=== PATIENT | male | born 1945 | race Hispanic/Latino ===

== ENCOUNTER 2017-12-19 08:29 | Inpatient (IN) | payer MEDICARE, BC ==
[2017-12-19 08:39] VITALS: BMI 32.4
--- NOTE | 2017-12-19 08:57 | ED PDOC ---
Arrival/HPI - General Chief Complaint: Lower Extremity Problem/Injury Time Seen by Provider: 12/19/17 08:34 Historian: Patient - History of Present Illness Narrative History of Present Illness (Text): 12/19/17 08:55 72 year old male, whose PMH includes diabetes, who presents to the emergency department for bilateral leg swelling and erythma, h/o of chronic lymphedema x 30 yrs. ho of hep b and hcc. . Patient denies any chest pain, shortness of breath, fever, or other complaints. PMD: Dr. Yante Cedeno 12/19/17 15:13 Time/Duration: < week Symptom Onset: Gradual Symptom Course: Unchanged Context: Home Past Medical History - Provider Review Nursing Documentation Reviewed: Yes - Tetanus Immunization Tetanus Immunization: Unknown - Cardiac Hx Pacemaker: No - Pulmonary Hx Respiratory Disorders: No - Neurological Hx Paralysis: No - HEENT Hx HEENT Disorder: No - Renal Hx Renal Disorder: No - Endocrine/Metabolic Hx Diabetes Mellitus Type 2: Yes - Hematological/Oncological Hx Blood Transfusions: Yes Hx Blood Transfusion Reaction: No - Integumentary Hx Dermatological Disorder: No - Musculoskeletal/Rheumatological Hx Musculoskeletal Disorders: Yes - Gastrointestinal Hx Gastrointestinal Disorders: No - Genitourinary/Gynecological Hx Genitourinary Disorders: No - Psychiatric Hx Emotional Abuse: No Hx Physical Abuse: No Hx Substance Use: No - Surgical History Other/Comment: partial colectomy 2003 - Anesthesia Hx Anesthesia Reactions: No Hx Malignant Hyperthermia: No - Suicidal Assessment Feels Threatened In Home Enviroment: No Family/Social History - Physician Review Nursing Documentation Reviewed: Yes Family/Social History: Unknown Family HX Smoking Status: Never Smoked Hx Alcohol Use: No Hx Substance Use: No Hx Substance Use Treatment: No Allergies/Home Meds Allergies/Adverse Reactions: Allergies No Known Allergies Allergy (Verified 12/19/17 11:51) Home Medications: Home Meds Medication Instructions Recorded Confirmed Cholecalciferol [Vitamin D] 1,000 iu PO QAM 04/11/12 12/19/17 Multivitamin [Multi Vitamins] 1 tab PO QAM 04/11/12 12/19/17 Omeprazole [Prilosec] 20 mg PO QAM 04/11/12 12/19/17 Losartan [Cozaar] 100 mg PO DAILY 03/11/15 12/19/17 Allopurinol [Zyloprim] 300 mg PO QAM 06/14/16 12/19/17 Aspirin [Aspirin Chewable] 81 mg PO QAM 06/14/16 12/19/17 Furosemide [Lasix] 40 mg PO QOTHERDAY 06/14/16 12/19/17 Insulin Glargine, Recombina 38 unit SQ AMHS 06/14/16 12/19/17 [Lantus] Insulin Lispro [Humalog (Insulin 45 unit SQ AC 06/14/16 12/19/17 Lispro)] Metoprolol Tartrate [Lopressor] 100 mg PO AMHS 06/14/16 12/19/17 Pyridoxine [Vitamin B6] 100 mg PO DAILY 06/14/16 12/19/17 Simvastatin [Zocor] 40 mg PO DAILY 06/14/16 12/19/17 Ferrous Sulfate [Feosol] 84 mg PO DAILY 12/19/17 12/19/17 Review of Systems - Review of Systems Constitutional: absent: Fevers ENT: absent: Sore Throat Respiratory: absent: SOB Cardiovascular: absent: Chest Pain Gastrointestinal: absent: Abdominal Pain Genitourinary Male: absent: Dysuria Musculoskeletal: Other (bilateral leg edema). absent: Back Pain Neurological: absent: Headache Endocrine: absent: Diaphoresis Physical Exam Vital Signs Reviewed: Yes Vital Signs Temp Pulse Resp BP Pulse Ox 12/19/17 10:38 88 18 154/60 H 100 12/19/17 08:49 97.6 F 87 18 138/78 99 Temperature: Afebrile Blood Pressure: Normal Pulse: Regular Respiratory Rate: Normal Appearance: Positive for: Well-Appearing, Non-Toxic, Comfortable Pain Distress: None Mental Status: Positive for: Alert and Oriented X 3 - Systems Exam Head: Present: Atraumatic, Normocephalic Pupils: Present: PERRL Extroacular Muscles: Present: EOMI Conjunctiva: Present: Normal Mouth: Present: Moist Mucous Membranes Respiratory/Chest: Present: Clear to Auscultation, Good Air Exchange. No: Respiratory Distress, Accessory Muscle Use, Wheezes, Rales, Rhonchi Cardiovascular: Present: Regular Rate and Rhythm, Normal S1, S2. No: Murmurs Lower Extremity: Present: Edema, NORMAL PULSES, Normal ROM, Swelling, Erythema, Neurovascularly Intact, Capillary Refill < 2 s. No: Cyanosis, Deformity Neurological: Present: GCS=15, CN II-XII Intact, Speech Normal Skin: Present: Warm, Dry, Erythematous. No: Rashes Psychiatric: Present: Alert, Oriented x 3, Normal Insight, Normal Concentration Medical Decision Making ED Course and Treatment: 12/19/17 Impression: 72 year old male with bilateral leg lymphedema and eythema complaining of swelling on bilateral legs and came in as requested by PMD. Plan: -- Chest X-ray -- Labs -- Urinalysis -- Ultrasound lower extremity -- Reassess and disposition Progress Notes: 12/19/17 11:00 Chest X-ray: Creator : Aurelia Zamarripa MD FINDINGS: LUNGS: The lungs are hyperinflated and there is peribronchial thickening with chronic changes in both lungs. No focal consolidation. PLEURA: No significant pleural effusion identified, no pneumothorax apparent. CARDIOVASCULAR: Normal. OSSEOUS STRUCTURES: No significant abnormalities. VISUALIZED UPPER ABDOMEN: Normal. OTHER FINDINGS: None. IMPRESSION: No active pulmonary disease. 12/19/17 15:[address] luu ac cepts requests dr verma, dr salazar, holly consult. pt will need iv antibiotics with moderate cellulits - Lab Interpretations Lab Results: 12/19/17 09:30 12/19/17 09:30 Lab Results 12/19/17 10:07: Urine Color Yellow, Urine Appearance Clear, Urine pH 6.0, Ur Specific [place] 1.015, Urine Protein Negative, Urine Glucose (UA) Negative, Urine Ketones Negative, Urine Blood Negative, Urine Nitrate Negative, Urine Bilirubin Negative, Urine Urobilinogen 0.2, Ur Leukocyte Esterase Small H, Urine RBC 0 - 2, Urine WBC 5 - 10, Ur Epithelial Cells None, Urine Bacteria None 12/19/17 09:30: Sodium 138, Potassium 5.4 H, Chloride 105, Carbon Dioxide 21, Anion Gap 17, BUN 82 H, Creatinine 2.0 H, Est GFR ( Amer) 40, Est GFR ( Non-Af Amer) 33, Random Glucose 95, Calcium 10.4, Total Bilirubin 1.1, AST 67 H D, ALT 43, Alkaline Phosphatase 130 H D, Total Protein 8.0, Albumin 3.8, Globulin 4.2, Albumin/Globulin Ratio 0.9 L 12/19/17 09:30: PT 14.1 H, INR 1.22 H, APTT 28.5 04/16/18 09:30: WBC 6.6 D, RBC 3.30 L, Hgb 11.1 L, Hct 31.9 L, MCV 96.7, MCH 33.6, MCHC 34.8, RDW 14.5, Plt Count 121, MPV 10.8, Gran % 60.9, Lymph % (Auto) 22.9, [place] % (Auto) 8.7 H, Eos % (Auto) 6.1 H, Baso % (Auto) 1.4, Gran # 4.01, Lymph # (Auto) 1.5, [place] # (Auto) 0.6, Eos # (Auto) 0.4, Baso # (Auto) 0.09 I have reviewed the lab results: Yes - RAD Interpretation Radiology Orders: 12/19/17 08:54 CXR [CHEST PORTABLE] [RAD] Stat DUPLEX LOWER EXTRM VEIN BILAT [US] Stat Rn Unit Manager: Radiologist - Medication Orders Current Medication Orders: Allopurinol (Zyloprim) 300 mg PO QAM [facility] Aspirin (Aspirin Chewable) 81 mg PO QAM [facility] Atorvastatin Calcium (Lipitor) 20 mg PO DIN [facility] Insulin Detemir (Levemir) 19 unit SC AMHS [facility] Insulin Human Lispro (Humalog) 45 units SC AC [facility] Losartan Potassium (Cozaar) 100 mg PO DAILY [facility] Last Admin: 12/19/17 14:36 Dose: 100 mg Metoprolol Tartrate (Lopressor) 100 mg PO BRKDIN [facility] Non-Formulary Medication (Simvastatin [Zocor]) 40 mg PO DAILY [facility] Pyridoxine HCl (Vitamin B6 50 Mg Tab) 100 mg PO DAILY [facility] Silver Sulfadiazine (Silvadene 1% 25 Gm) 0 gm TP Q6 [facility] Discontinued Medications Vancomycin HCl (Vancomycin 1gm) 1 gm in 250 mls @ 167 mls/hr IVPB STAT STA PRN Reason: Protocol Stop: 12/19/17 10:59 Last Admin: 12/19/17 10:22 Dose: 167 mls/hr eMAR Start Stop Document 12/19/17 10:22 DARIN (Rec: 12/19/17 10:30 DARIN [id number]) Intravenous Solution Start Date 12/19/17 Start Time 10:30 End Date 12/19/17 End time 12:00 Total Infusion Time 90 Piperacillin Sod/Tazobactam Sod (Zosyn 3.375 In Ns 100ml) 100 mls @ 200 mls/hr IVPB STAT STA PRN Reason: Protocol Stop: 12/19/17 09:59 Last Admin: 12/19/17 09:54 Dose: 200 mls/hr eMAR Start Stop Document 12/19/17 09:54 KRISLisa (Rec: 12/19/17 09:54 SZLisa [id number]) Intravenous Solution Start Date 12/19/17 Start Time 09:54 End Date 12/19/17 End time 10:30 Total Infusion Time 36 Non-Formulary Medication (Insulin Glargine, Recombina [Lantus]) 38 unit SQ [facility] Non-Formulary Medication (Insulin Lispro [Humalog (Insulin Lispro)]) 45 unit SQ AC [facility] Non-Formulary Medication (Metoprolol Tartrate [Lopressor]) 100 mg PO AMHS [facility] Non-Formulary Medication (Pyridoxine [Vitamin B6]) 100 mg PO DAILY [facility] Pneumococcal Polyvalent Vaccine (Pneumovax 23 Vaccine) 0.5 ml IM .ONCE ONE Stop: 12/19/17 13:44 Last Admin: 12/19/17 14:35 Dose: Immunization Registry Document 12/19/17 14:35 SES (Rec: 12/19/17 14:35 [facility] [id number]) Immunization Registry Consent Date 12/12/17 Pyridoxine HCl (Vitamin B6 50 Mg Tab) 100 mg PO .EXTRA DOSE ONE Stop: 12/19/17 14:16 Sodium Polystyrene Sulfonate (Kayexalate Susp) 15 gm PO STAT STA Stop: 12/19/17 10:21 Last Admin: 12/19/17 11:05 Dose: 15 gm - Scribe Statement The provider has reviewed the documentation as recorded by the Meera Reina Provider Scribe Attestation: All medical record entries made by the Meera were at my direction and personally dictated by me. I have reviewed the chart and agree that the record accurately reflects my personal performance of the history, physical exam, medical decision making, and the department course for this patient. I have also personally directed, reviewed, and agree with the discharge instructions and disposition. Disposition/Present on Arrival - Present on Arrival Any Indicators Present on Arrival: No History of DVT/PE: No History of Uncontrolled Diabetes: No Urinary Catheter: No History of Decub. Ulcer: No (blisters on legs) History Surgical Site Infection Following: None - Disposition Have Diagnosis and Disposition been Completed?: Yes Diagnosis: Cellulitis, Lymphedema Disposition: HOSPITALIZED Disposition Time: 03:00 Patient Problems: Current Active Problems Problem Status Onset Cellulitis Acute Lymphedema Acute Condition: FAIR
--- NOTE | 2017-12-19 09:15 | RAD ---
HISTORY: admission COMPARISON: No prior. FINDINGS: LUNGS: The lungs are hyperinflated and there is peribronchial thickening with chronic changes in both lungs. No focal consolidation. PLEURA: No significant pleural effusion identified, no pneumothorax apparent. CARDIOVASCULAR: Normal. OSSEOUS STRUCTURES: No significant abnormalities. VISUALIZED UPPER ABDOMEN: Normal. OTHER FINDINGS: None. IMPRESSION: No active pulmonary disease.
[2017-12-19] MEDS ORDERED: Vancomycin 1gm in NS 250ml 1 GM/250 ML BAG IVPB STA (09:30)
[2017-12-19] MEDS ORDERED: Piperacillin/Tazobact 3.375 gm 100 ML IVPB STA (09:30)
[2017-12-19 09:46] LABS: BASO # 0.09 K/mm3 (0.0-2.0); BASO % 1.4 % (0.0-3.0); EOS # 0.4 (0.0-0.7); EOS % 6.1 % (1.5-5.0); GRAN # 4.01 (1.4-6.5); GRAN % 60.9 % (50.0-68.0); HEMOGLOBIN 11.1 g/dL (14.0-18.0); LYMPH # 1.5 (1.2-3.4); LYMPH % 22.9 % (22.0-35.0); MEAN CELL VOLUME 96.7 fl (80.0-105.0); MEAN CORPUSCULAR HEMOGLOBIN 33.6 pg (25.0-35.0); MEAN CORPUSCULAR HGB CONC 34.8 g/dl (31.0-37.0); MEAN PLATELET VOLUME 10.8 fl (7.0-11.0); MONO # 0.6 (0.1-0.6); MONO % 8.7 % (1.0-6.0); RBC 3.3 10^6/uL (3.5-6.1); RED CELL DISTRIBUTION WIDTH 14.5 % (11.5-14.5); WHITE BLOOD COUNT 6.6 10^3/ul (4.5-11.0)
[2017-12-19 09:51] LABS: INR 1.22 (0.93-1.08); PARTIAL THROMBOPLASTIN TIME 28.5 Seconds (25.1-36.5); PROTHROMBIN TIME 14.1 SECONDS (9.4-12.5)
[2017-12-19 10:05] LABS: ALB/GLOB RATIO 0.9 (1.1-1.8); ALBUMIN 3.8 g/dL (3.0-4.8); CALCIUM 10.4 mg/dL (8.4-10.5)
[2017-12-19 10:18] LABS: URINE BILIRUBIN NEGATIVE (NEGATIVE); URINE BLOOD NEGATIVE (NEGATIVE); URINE GLUCOSE (UA) NEGATIVE (NEGATIVE); URINE LEUKOCYTE ESTERASE SMALL Leu/uL (NEGATIVE); URINE PROTEIN NEGATIVE mg/dL (<30 mg/dL); URINE UROBILINOGEN 0.2 E.U./dL (<1 E.U./dL)
[2017-12-19 10:19] LABS: URINE APPEARANCE CLEAR (CLEAR); URINE COLOR YELLOW (YELLOW)
[2017-12-19] MEDS ORDERED: Sod Polystyrene Sulf 15 gm/60 ml Susp PO STA (10:20)
[2017-12-19 11:21] LABS: URINE RBC 0 - 2 /hpf (0-2)
[2017-12-19] MEDS ORDERED: Barium Sulfate Susp 2.1% w/v, 2.0% w/w 450 mL Bottle PO ONE (12:27)
--- NOTE | 2017-12-19 12:45 | CP.PCM.CON ---
<LeviJuancho - Last Filed: 12/19/17 12:28> History of Present Illness - History of Present Illness History of Present Illness: Pt. is a 72 y.o male with an extensive PMH including DM, HTN, CAD, Hep C, BPH, cirrhosis, liver CA, thrombocytopenia . Pt. presents with a complaint of bilateral lower extremity swelling of 6 weeks duration. Pt. states the swelling is painful and that he had blisters on both legs which "broke" over the last 6 weeks making the pain worse in his L.E's. Pt. currently rates the pain a 10/10 and states nothing in particular makes his pain better. Pt. states at onset of his symptoms he used Bacitracin, Neosporin, clotrimazole and betamethasone which all did not provide any significant relief. Pt. admits to chills, pain in his legs and numbness and tingling in both feet at onset of the symptoms but denies all other symptoms including fever, MEZA, CP, and SOB. PMH- Liver CA (2015), Hepatitis A, Hepatitis C, Kine[place] stones, Cirrhosis, Osteoarthritis, Cataracts, CAD, HTN, PVD, BPH, thrombocytopenia PSH- Colon surgery (2002) Hospitalization- Colon surgery recovery FH- Father- Pancreatic CA, Mother- Breast CA, Brother- Duodenal CA SH- Pt. denies use of tobacco, illicit drugs and alcohol. Pt. lives alone and is able to perform his IADLs on his own. Allergies- NKA Past Patient History - Tetanus Immunizations Tetanus Immunization: Unknown - Past Social History Smoking Status: Never Smoked - CARDIAC Hx Pacemaker: No - PULMONARY Hx Respiratory Disorders: No - NEUROLOGICAL Hx Paralysis: No - HEENT Hx HEENT Problems: No - RENAL Hx Chronic Kidney Disease: No - ENDOCRINE/METABOLIC Hx Diabetes Mellitus Type 2: Yes - HEMATOLOGICAL/ONCOLOGICAL Hx Blood Transfusions: Yes Hx Blood Transfusion Reaction: No - INTEGUMENTARY Hx Dermatological Problems: No - MUSCULOSKELETAL/RHEUMATOLOGICAL Hx Musculoskeletal Disorders: Yes - GASTROINTESTINAL Hx Gastrointestinal Disorders: No - GENITOURINARY/GYNECOLOGICAL Hx Genitourinary Disorders: No - PSYCHIATRIC Hx Emotional Abuse: No Hx Physical Abuse: No Hx Substance Use: No - SURGICAL HISTORY Other/Comment: partial colectomy 2002 - ANESTHESIA Hx Anesthesia Reactions: No Hx Malignant Hyperthermia: No Meds Allergies/Adverse Reactions: Allergies Allergy/AdvReac Type Severity Reaction Status Date / Time No Known Allergies Allergy Verified 12/19/17 11:51 Physical Exam - Constitutional Appears: Non-toxic, No Acute Distress - Head Exam Head Exam: NORMOCEPHALIC - Respiratory Exam Respiratory Exam: Clear to Auscultation Bilateral - Cardiovascular Exam Cardiovascular Exam: REGULAR RHYTHM, +S1, +S2 - GI/Abdominal Exam GI & Abdominal Exam: Soft Results - Vital Signs Recent Vital Signs: Last Vital Signs Temp 97.6 F 12/19/17 08:49 Pulse 88 12/19/17 10:38 Resp 18 12/19/17 10:38 BP 154/60 H 12/19/17 10:38 Pulse Ox 100 12/19/17 10:38 - Labs Result Diagrams: 12/19/17 09:30 12/19/17 09:30 Labs: Laboratory Results - last 24 hr 12/19/17 10:55 ESR 90 H Assessment & Plan - Assessment and Plan (Free Text) Assessment: Pt. is a 72 y.o male admitted for bilateral lower extremity swelling. Plan: -Wound care consult - Continue IV antibiotics -Daily wound dressing -Pain management per medical team Will discuss with Dr. Damico <Ivette Torres - Last Filed: 12/19/17 14:48> Meds - Medications Medications: Current Medications Allopurinol (Zyloprim) 300 mg PO QAM [facility] Aspirin (Aspirin Chewable) 81 mg PO QAM [facility] Atorvastatin Calcium (Lipitor) 20 mg PO DIN [facility] Insulin Detemir (Levemir) 19 unit SC AMHS [facility] Insulin Human Lispro (Humalog) 45 units SC AC [facility] Losartan Potassium (Cozaar) 100 mg PO DAILY [facility] Last Admin: 12/19/17 14:36 Dose: 100 mg Metoprolol Tartrate (Lopressor) 100 mg PO BRKDIN [facility] Non-Formulary Medication (Simvastatin [Zocor]) 40 mg PO DAILY [facility] Pyridoxine HCl (Vitamin B6 50 Mg Tab) 100 mg PO DAILY [facility] Silver Sulfadiazine (Silvadene 1% 25 Gm) 0 gm TP Q6 [facility] Results - Vital Signs Recent Vital Signs: Last Vital Signs Temp 97.6 F 12/19/17 12:52 Pulse 88 12/19/17 12:52 Resp 18 12/19/17 12:52 BP 154/60 H 12/19/17 12:52 Pulse Ox 100 12/19/17 10:38 - Labs Result Diagrams: 12/19/17 09:30 12/19/17 09:30 Labs: Laboratory Results - last 24 hr 12/19/17 12/19/17 10:55 12:55 ESR 90 H Lipase 351 H Assessment & Plan - Assessment and Plan (Free Text) Plan: Venous stasis with cellulitis Wound care : Silvadene, 4x4, Kerlilx, then Chase wrape around foot and legs b/l. Keep legs elevated. Compression <Hal Damico - Last Filed: 12/19/17 17:33> Meds - Medications Medications: Current Medications Allopurinol (Zyloprim) 300 mg PO QAM [facility] Aspirin (Aspirin Chewable) 81 mg PO QAM [facility] Atorvastatin Calcium (Lipitor) 20 mg PO DIN [facility] Vancomycin HCl (Vancomycin 500mg In Ns) 500 mg in 100 mls @ 200 mls/hr IVPB Q12 [facility] PRN Reason: Protocol Piperacillin Sod/Tazobactam Sod (Zosyn 2.25 Gm In 0.9% 100 Ml) 2.25 gm in 100 mls @ 100 mls/hr IVPB Q6 [facility] PRN Reason: Protocol Stop: 12/20/17 00:59 Insulin Detemir (Levemir) 19 unit SC AMHS [facility] Insulin Human Lispro (Humalog) 45 units SC AC [facility] Losartan Potassium (Cozaar) 100 mg PO DAILY [facility] Last Admin: 12/19/17 14:36 Dose: 100 mg Metoprolol Tartrate (Lopressor) 100 mg PO BRKDIN [facility] Non-Formulary Medication (Simvastatin [Zocor]) 40 mg PO DAILY [facility] Pyridoxine HCl (Vitamin B6 50 Mg Tab) 100 mg PO DAILY [facility] Silver Sulfadiazine (Silvadene 1% 25 Gm) 0 gm TP Q6 [facility] Results - Vital Signs Recent Vital Signs: Last Vital Signs Temp 97.8 F 12/19/17 14:00 Pulse 94 H 12/19/17 14:00 Resp 20 12/19/17 14:00 BP 106/64 12/19/17 14:00 Pulse Ox 100 12/19/17 14:00 - Labs Result Diagrams: 12/19/17 09:30 12/19/17 09:30 Labs: Laboratory Results - last 24 hr 12/19/17 12/19/17 12/19/17 10:55 10:55 12:55 ESR 90 H POC Glucose (mg/dL) C-Reactive Protein 10.40 H Lipase 351 H 12/19/17 16:26 ESR POC Glucose (mg/dL) 153 H C-Reactive Protein Lipase Assessment & Plan - Assessment and Plan (Free Text) Assessment: Dx Cellulitis-Lymphedema [place] lower extremities Portal Hypertension(cirrhossis) w Hypersplenism(thrombocytopenia) Hepatitis B(?C) Colon CA-Polyps Severe 40+ # weight loss over 3-4 months(GERD) Will need work up but cellulitis Rx to include Silvadene/Systemic Ab/Leg Elevation GI and Hem-Onc called This consult done under my direct supervision Ally Damico MD FACS
[2017-12-19] MEDS ORDERED: Pneumococcal 23-Valent Vaccine IM ONE (13:43)
[2017-12-19] MEDS ORDERED: Non Formulary Medication (Pyridoxine [Vitamin B6] 100 MG) PO SCH (14:00)
[2017-12-19] MEDS ORDERED: Non Formulary Medication (Simvastatin [Zocor] 40 MG) PO SCH (14:00)
--- NOTE | 2017-12-19 15:01 | CP.PCM.CON ---
History of Present Illness - History of Present Illness History of Present Illness: GI Consult note. Dr. Monsalve 72yo M with PMHx of DM, Hepatoma, MARTE cirrhosis, OA, Cataracts, CAD, HTN, PVD, BPH here for evaluaiton of bilateral lower extremity swelling. States that symptoms started about 6 weeks ago and gradually became worse, with worsening redness as well. Denies any trauma. Also reports a 40 pound weight loss over the past 2 months. Does state that he has decreased appetite over the same time period. States that he had Chemo embolization last in August 2016 and then ablation in Apr 2017. No recent chemo. No F/C. no CP/SOB. No N/V/D. No Abd pain. no urinary complaints. PMHx: DM, Hepatoma, MARTE cirrhosis, OA, Cataracts, CAD, HTN, PVD, BPH PSHx: "Colon surgery in 2002" Social Hx: Denies Tob, denies ETOH. Lives at home, alone NKDA Review of Systems - Review of Systems All systems: reviewed and no additional remarkable complaints except - Constitutional Constitutional: Anorexia, Malaise, Weight Loss. absent: Chills, Fever - Cardiovascular Cardiovascular: absent: Chest Pain, Dyspnea - Respiratory Respiratory: absent: Dyspnea - Gastrointestinal Gastrointestinal: absent: Abdominal Pain, Dysphagia, Nausea, Vomiting - Genitourinary Genitourinary: absent: Dysuria - Musculoskeletal Additional comments: lower extremity redness and swelling Past Patient History - Tetanus Immunizations Tetanus Immunization: Unknown - Past Social History Smoking Status: Never Smoked - CARDIAC Hx Cardiac Disorders: Yes (CAD) Hx Circulatory Problems: Yes Hx Hypercholesterolemia: Yes Hx Hypertension: Yes Hx Pacemaker: No - PULMONARY Hx Respiratory Disorders: No - NEUROLOGICAL Hx Neurological Disorder: Yes - HEENT Hx HEENT Problems: Yes Hx Deafness: Yes ([place]) - RENAL Hx Chronic Kidney Disease: Yes Hx Kidney Stones: Yes - ENDOCRINE/METABOLIC Hx Endocrine Disorders: Yes Hx Diabetes Mellitus Type 2: Yes - HEMATOLOGICAL/ONCOLOGICAL Hx Blood Disorders: Yes Hx Anemia: Yes (H/O BLOOD TRANSFUSION,PLATELET PROBEMS,SEES DR. MELENDEZ.) - INTEGUMENTARY Hx Dermatological Problems: Yes (CHARCOT FOOT R) Other/Comment: 12-19-17 BILATERAL LEG CELLULITIS-PITTING EDEMA +2,SKIN IS TIGHT, SHINY,+ERYTHEMA,BLISTER FORMATION WITH OPEN SKIN TO R BACK OF LEG. LEFT LEG WITH +ERYTHEMA,TIARA COLORED SKIN.+ CELLULITIS.NO OPEN WOUND. - MUSCULOSKELETAL/RHEUMATOLOGICAL Hx Musculoskeletal Disorders: Yes Hx Falls: No Hx Unsteady Gait: Yes (CANE) - GASTROINTESTINAL Hx Gastrointestinal Disorders: Yes (NAUSEA) Hx Liver Failure: Yes (LIVER CIRRHOSIS) - GENITOURINARY/GYNECOLOGICAL Hx Genitourinary Disorders: Yes Hx Prostate Problems: Yes (ENLARGED,HYDROCOELE) - PSYCHIATRIC Hx Emotional Abuse: No Hx Physical Abuse: No Hx Substance Use: No - SURGICAL HISTORY Hx Surgeries: Yes (MULTIPLE COLON SX,ABDOMINAL SX,COLOSTOMY REVERSAL,BILATERAL CATARACT SX.) Other/Comment: partial colectomy 2002 - ANESTHESIA Hx Anesthesia Reactions: No Hx Malignant Hyperthermia: No Meds Allergies/Adverse Reactions: Allergies Allergy/AdvReac Type Severity Reaction Status Date / Time No Known Allergies Allergy Verified 12/19/17 11:51 - Medications Medications: Current Medications Allopurinol (Zyloprim) 300 mg PO QAM [facility] Aspirin (Aspirin Chewable) 81 mg PO QAM [facility] Atorvastatin Calcium (Lipitor) 20 mg PO DIN [facility] Insulin Detemir (Levemir) 19 unit SC AMHS [facility] Insulin Human Lispro (Humalog) 45 units SC AC [facility] Losartan Potassium (Cozaar) 100 mg PO DAILY [facility] Last Admin: 12/19/17 14:36 Dose: 100 mg Metoprolol Tartrate (Lopressor) 100 mg PO BRKDIN [facility] Non-Formulary Medication (Simvastatin [Zocor]) 40 mg PO DAILY [facility] Pyridoxine HCl (Vitamin B6 50 Mg Tab) 100 mg PO DAILY [facility] Silver Sulfadiazine (Silvadene 1% 25 Gm) 0 gm TP Q6 [facility] Physical Exam - Constitutional Appears: Non-toxic, No Acute Distress, Chronically Ill - Eye Exam Eye Exam: EOMI, Normal appearance - ENT Exam ENT Exam: Mucous Membranes Moist - Cardiovascular Exam Cardiovascular Exam: absent: JVD - GI/Abdominal Exam GI & Abdominal Exam: Soft. absent: Distended, Firm, Guarding, Rebound, Rigid, Tenderness - Extremities Exam Additional comments: Bilateral lower extremity edema and erythema located at the pretibial area to the foot. Mild tenderness to palpation. - Neurological Exam Neurological exam: Alert, Oriented x3 Results - Vital Signs Recent Vital Signs: Last Vital Signs Temp 97.6 F 12/19/17 12:52 Pulse 88 12/19/17 12:52 Resp 18 12/19/17 12:52 BP 154/60 H 12/19/17 12:52 Pulse Ox 100 12/19/17 10:38 - Labs Result Diagrams: 12/19/17 09:30 12/19/17 09:30 Labs: Laboratory Results - last 24 hr 12/19/17 12/19/17 10:55 12:55 ESR 90 H Lipase 351 H Assessment & Plan - Assessment and Plan (Free Text) Assessment: 72yo M with bilateral lower extremity swelling and erythema. GI consulted for unexplained weight loss. Plan: - f/u CT Chest/Abd/Pelvis with PO contrast. No IV contrast due renal insufficiency - Continue diet as tolerated Further recs as per Dr. Gricel Miller PGY1
[2017-12-19] MEDS ORDERED: INSULIN LISPRO 45 UNIT SQ SCH (16:30)
--- NOTE | 2017-12-19 17:41 | CP.PCM.PCO ---
Physician Communication Note - Physician Communication Note Physician Communication Note: 40# wgt loss--Work up/Rx Cellulitis legs/Hepatic- Colon CA
[2017-12-19] MEDS ORDERED: Piperacillin/Tazobact 2.25gm 2.25 GM/100 ML BAG IVPB SCH (18:00)
--- NOTE | 2017-12-19 18:21 | CT ---
PROCEDURE: CT Chest, Abdomen and Pelvis without intravenous contrast HISTORY: weight loss COMPARISON: 10/22/2012 CT abdomen and pelvis. 11/18/2015 abdominal ultrasound MRI abdomen 05/15/2016. TECHNIQUE: Oral contrast administered. Radiation dose: Total exam DLP = 1440.50 mGy-cm. This CT exam was performed using one or more of the following dose reduction techniques: Automated exposure control, adjustment of the mA and/or kV according to patient size, and/or use of iterative reconstruction technique. FINDINGS: CT CHEST WITHOUT CONTRAST: LUNGS: Clear. No nodule, mass or consolidation. MEDIASTINUM: Unremarkable. Normal caliber aorta and pulmonary arterial trunk. Normal size heart. LYMPH NODES: Unremarkable. PLEURA: Unremarkable. No pneumothorax. No pleural fluid. BONES: Unremarkable. OTHER FINDINGS: None. CT ABDOMEN AND PELVIS: LIVER: Cirrhotic appearing liver. Dystrophic calcifications at the site of the previously identified mass in the left hepatic lobe. No additional masses are identified. GALLBLADDER AND BILE DUCTS: Unremarkable. PANCREAS: Unremarkable. No gross lesion or ductal dilatation. SPLEEN: Splenomegaly. Orthogonal measurements 11.7 x 6.5 x 14.7 cm. ADRENALS: Unremarkable. No mass. KIDNEYS AND URETERS: Unremarkable. No hydronephrosis. No solid mass. Incidental finding(s): Simple cyst midpole left kidney 3.2 cm. VASCULATURE: Unremarkable. No aortic aneurysm. BOWEL: Unremarkable. No obstruction. No gross mural thickening. Midline umbilical hernia containing nondilated loops of small bowel without evidence of incarceration or obstruction. APPENDIX: No abnormalities to suggest acute appendicitis. No right lower quadrant inflammatory processes identified. PERITONEUM: Unremarkable. No free fluid. No free air. LYMPH NODES: Unremarkable. No enlarged lymph nodes. BLADDER: Unremarkable. REPRODUCTIVE: Unremarkable prostate and seminal vesicles as visualized. BONES: No acute fracture. Multilevel degenerative changes thoracolumbar spine. OTHER FINDINGS: None. IMPRESSION: Cirrhotic liver, splenomegaly. No suspicious hepatic masses although there are dystrophic calcifications in the region of the previously identified hepatic mass distal to this is isolated dilated bile ducts confined to the left lobe. Limitations of the current study with regards to the liver is the absence of intravenous contrast. No active pulmonary disease or suspicious findings in the thorax. Additional benign and/or incidental findings described above.
[2017-12-19] MEDS: Insulin Lispro 1 UNITS/0.01 ML SC SCH (18:37)
[2017-12-19] MEDS: Silver Sulfadiazine 1% Cream (25 gm) TP SCH (18:39)
--- NOTE | 2017-12-19 19:37 | US ---
HISTORY: Leg pain and swelling. Evaluate for DVT PHYSICIAN(S): Mo Martino MD. TECHNIQUE: Duplex sonography and color-flow Doppler with graded compression were used to evaluate the deep venous systems of both lower extremities. FINDINGS: The visualized deep venous systems of both lower extremities are sonographically normal and compressible. Normal wave forms and augmentation are seen. There is no sonographic evidence for deep venous thrombosis in the visualized segments of both lower extremities. IMPRESSION: No sonographic evidence for deep venous thrombosis in the visualized segments of both lower extremities.
--- NOTE | 2017-12-19 19:49 | CP.PCM.CON ---
History of Present Illness - History of Present Illness History of Present Illness: 72 year old male with PMH of DM, obesity with BMI 32, S/P partial colectomy, [place] [facility] [place] of worsening bilateral lower extremity edema. He has been having chronic swelling of the legs and was seeing Dr. Pruitt previously. He also occasionally develops blisters and this time he developed on both feet, with weeping and pain. He denies soaking his feet in water, no animal contacts, no walking barefoot. He denies fever or chills, no nausea or vomiting, no chest pain, no SOB, no headache or dizziness, no abdominal pain, no cough or colds, no diarrhea, no dysuria. Infectious Diseases consult is requested to further evaluate and manage. Review of Systems - Review of Systems All systems: reviewed and no additional remarkable complaints except (as per HPI ) Past Patient History - Tetanus Immunizations Tetanus Immunization: Unknown - Past Social History Smoking Status: Never Smoked - CARDIAC Hx Cardiac Disorders: Yes Hx Hypertension: Yes Hx Pacemaker: No - PULMONARY Hx Respiratory Disorders: No - NEUROLOGICAL Hx Paralysis: No - HEENT Hx HEENT Problems: No - RENAL Hx Chronic Kidney Disease: No - ENDOCRINE/METABOLIC Hx Diabetes Mellitus Type 2: Yes - HEMATOLOGICAL/ONCOLOGICAL Hx Blood Transfusions: Yes Hx Blood Transfusion Reaction: No - INTEGUMENTARY Hx Dermatological Problems: No - MUSCULOSKELETAL/RHEUMATOLOGICAL Hx Musculoskeletal Disorders: Yes - GASTROINTESTINAL Hx Gastrointestinal Disorders: No - GENITOURINARY/GYNECOLOGICAL Hx Genitourinary Disorders: No - PSYCHIATRIC Hx Emotional Abuse: No Hx Physical Abuse: No Hx Substance Use: No - SURGICAL HISTORY Other/Comment: partial colectomy 2002 - ANESTHESIA Hx Anesthesia: Yes Hx Anesthesia Reactions: No Hx Malignant Hyperthermia: No Meds Allergies/Adverse Reactions: Allergies Allergy/AdvReac Type Severity Reaction Status Date / Time No Known Allergies Allergy Verified 12/19/17 11:51 - Medications Medications: Current Medications Vancomycin HCl (Vancomycin 1gm) 1 gm in 250 mls @ 167 mls/hr IVPB STAT [facility] PRN Reason: Protocol Stop: 12/19/17 10:59 Last Admin: 12/19/17 10:22 Dose: 167 mls/hr Physical Exam - Constitutional Appears: Chronically Ill - Head Exam Head Exam: NORMAL INSPECTION - Neck Exam Neck exam: Negative for: Meningismus - Respiratory Exam Respiratory Exam: Decreased Breath Sounds - Cardiovascular Exam Cardiovascular Exam: +S1, +S2 - GI/Abdominal Exam GI & Abdominal Exam: Soft. absent: Tenderness - Extremities Exam Additional comments: both legs with swelling, chronic skin changes, erythema, with blisters with weeping serous fluid, with some fungal infection noted in between toes Results - Vital Signs Recent Vital Signs: Last Vital Signs Temp 97.6 F 12/19/17 08:49 Pulse 88 12/19/17 10:38 Resp 18 12/19/17 10:38 BP 154/60 H 12/19/17 10:38 Pulse Ox 100 12/19/17 10:38 - Labs Result Diagrams: 12/19/17 09:30 12/19/17 09:30 Assessment & Plan - Assessment and Plan (Free Text) Plan: Assessment Bilateral lower extremity skin and skin structure infection with blisters associated with lymphedema, with fungal infection in between toes DM obesity with BMI 32 S/P partial colectomy Plan Started Teflaro pending blood and wound cx; ESR is elevated also started Clotrimazole for the toes will monitor clinically patient is also here because of 40 pound weight loss and malignancy work up is in progress
[2017-12-19] MEDS ORDERED: Non Formulary Medication (Metoprolol Tartrate [Lopressor] 100 MG) PO SCH (22:00)
[2017-12-19] MEDS ORDERED: Vancomycin 500mg in NS 500 MG/100 ML BAG IVPB SCH (22:00)
[2017-12-19] MEDS ORDERED: INSULIN GLARGINE RECOMBINA SQ SCH (22:00)
[2017-12-19] MEDS: Clotrimazole 1% Top Soln(10 ml) TOP SCH (22:05)
[2017-12-19] MEDS: Insulin Detemir 100 units/ml Vial (Levemir) SC SCH (22:05)
--- NOTE | 2017-12-20 02:53 | HP ---
HISTORY OF PRESENT ILLNESS: Patient is a 72-year-old, known to me from office practice, was seen in the office last week with increasing leg swelling, redness and watery discharge from both legs. I recommended him to go to emergency room for wound care and IV antibiotic, but he did not want to go to [facility]. He was seen by Dr. Swenson last Tuesday, who a kind of convinced him to come to emergency room; so, he showed up this morning for his further management for increasing leg swelling and redness. Patient states he had procedure done for his liver carcinoma. Since then, he is having increasing leg swelling. No history of fall, no trauma. Patient states he lost almost 40 pounds in last 2 to 3 months. He does complain of having no taste in mouth. He also complained of no appetite. Patient had transarterial chemoembolization in 08/2016 and 2016. Complained of nausea, complained of decreased appetite, complained of generalized weakness and increasing leg swelling. No hemoptysis, no hematemesis. PAST MEDICAL HISTORY: Significant for: 1. Insulin-dependent diabetes. 2. History of MARTE cirrhosis. 3. Enlarged prostate. 4. Peripheral vascular disease. 5. Chronic stasis dermatitis. 6. Hypertension. 7. Coronary artery disease. PAST SURGICAL HISTORY: Significant for: 1. Chemoembolization of hepatic tumor. 2. History of colon surgery in 2002. SOCIAL HISTORY: Denies smoking, drinking, or alcohol use. MEDICATIONS AT HOME: He is on ferrous sulfate, vitamin D, aspirin 81 daily. He is on Humalog 45 units before breakfast and Lantus 38 unit at bedtime. He is on omeprazole, multivitamin. He is on simvastatin 40 mg daily, allopurinol 300 daily, Lasix 40 mg daily, metoprolol 100 mg at bedtime, and losartan 100 mg daily. REVIEW OF SYSTEMS: Significant for severe bilateral leg swelling and erythema. PHYSICAL EXAMINATION: GENERAL: He is awake and alert, looks pale, complains of generalized weakness. VITAL SIGNS: He is afebrile, pulse 88, respirations 18, blood pressure 154/60. LUNGS: Bilateral good airflow. No rhonchi or crackle. HEART: S1 and S2 audible. ABDOMEN: Soft, nontender. No rebound, no guarding. NEUROLOGIC: He is awake, alert, oriented, communicative. EXTREMITIES: Bilateral legs erythema and +3 edema with water blisters on both legs. LABORATORY DATA: WBC 6.6, hemoglobin 11, hematocrit 31, platelet of 121. PT 14.1, INR 1.22. Chemistry: Sodium 138, potassium 5.4, chloride 105, CO2 of 21, BUN 82, creatinine 2, blood sugar of 95. Alkaline phosphatase 130, C-reactive protein is 10, lipase 351. Urinalysis is unremarkable except small leukocyte. Bilateral leg Doppler was done that is negative for DVT. ASSESSMENT: 1. Bilateral leg cellulitis. 2. Insulin-dependent diabetes. 3. Hypertension. 4. Hyperlipidemia. 5. Hepatocellular carcinoma of the liver. 6. Cirrhosis with portal hypertension. 7. Anemia. PLAN: We will restart him on aspirin 81 mg daily. He is on losartan 100 mg daily. Monitor his blood sugar. Start him on IV Lasix, start him on IV antibiotics. ID consult by Dr. Weinberg and GI consult by Dr. Monsalve have been requested, and we will reevaluate this patient in the a.m. Pierre Holt MD
[2017-12-20 07:28] LABS: BASO # 0.02 K/mm3 (0.0-2.0); BASO % 0.5 % (0.0-3.0); EOS # 0.2 (0.0-0.7); EOS % 4.8 % (1.5-5.0); GRAN # 2.46 (1.4-6.5); GRAN % 58.5 % (50.0-68.0); HEMOGLOBIN 10.1 g/dL (14.0-18.0); LYMPH # 0.9 (1.2-3.4); LYMPH % 21.4 % (22.0-35.0); MEAN CELL VOLUME 97.4 fl (80.0-105.0); MEAN CORPUSCULAR HGB CONC 33.9 g/dl (31.0-37.0); MEAN PLATELET VOLUME 10.3 fl (7.0-11.0); MONO # 0.6 (0.1-0.6); MONO % 14.8 % (1.0-6.0); RBC 3.06 10^6/uL (3.5-6.1); RED CELL DISTRIBUTION WIDTH 14.6 % (11.5-14.5); WHITE BLOOD COUNT 4.2 10^3/ul (4.5-11.0)
[2017-12-20 07:41] LABS: ALB/GLOB RATIO 0.8 (1.1-1.8); ALBUMIN 3.2 g/dL (3.0-4.8)
--- NOTE | 2017-12-20 07:53 | CP.PCM.PN ---
Subjective - Date & Time of Evaluation Date of Evaluation: 12/20/17 Time of Evaluation: 07:51 - Subjective Subjective: Patient seen and examined at bedside. Per nursing no acute events occurred overnight. Patient reports some improvement in lower leg pain. Patient denies any fevers, changes in vision, headaches, nausea, vomiting, chills, or any other complaints. Objective - Vital Signs/Intake and Output Vital Signs (last 24 hours): Temp Pulse Resp BP Pulse Ox 97.8 F 92 H 20 119/68 100 12/19/17 14:00 12/19/17 17:58 12/19/17 14:00 12/19/17 17:58 12/19/17 14:00 Intake and Output: 12/20/17 12/20/17 06:59 18:59 Intake Total 600 Output Total 1 Balance 599 - Medications Medications: Current Medications Allopurinol (Zyloprim) 300 mg PO QAM [facility] Aspirin (Aspirin Chewable) 81 mg PO QAM [facility] Atorvastatin Calcium (Lipitor) 20 mg PO DIN [facility] Last Admin: 12/19/17 17:58 Dose: 20 mg Clotrimazole (Lotrimin Af 1%) 0 ml TOP BID [facility] Last Admin: 12/19/17 22:05 Dose: Not Given Ceftaroline Fosamil 200 mg/ (Sodium Chloride) 50 mls @ 50 mls/hr IVPB Q12H [facility] PRN Reason: Protocol Stop: 12/26/17 19:46 Last Admin: 12/19/17 21:57 Dose: 50 mls/hr Insulin Detemir (Levemir) 19 unit SC AMHS [facility] Last Admin: 12/19/17 22:05 Dose: Not Given Insulin Human Lispro (Humalog) 45 units SC AC [facility] Last Admin: 12/19/17 18:37 Dose: Not Given Losartan Potassium (Cozaar) 100 mg PO DAILY [facility] Last Admin: 12/19/17 14:36 Dose: 100 mg Metoprolol Tartrate (Lopressor) 100 mg PO BRKDIN [facility] Last Admin: 12/19/17 17:58 Dose: 100 mg Non-Formulary Medication (Simvastatin [Zocor]) 40 mg PO DAILY [facility] Last Admin: 12/19/17 17:58 Dose: Not Given Pyridoxine HCl (Vitamin B6 50 Mg Tab) 100 mg PO DAILY [facility] Silver Sulfadiazine (Silvadene 1% 25 Gm) 0 gm TP Q6 [facility] Last Admin: 12/19/17 18:39 Dose: 25 gm - Labs Labs: 12/20/17 07:00 12/20/17 07:00 PT 14.1 SECONDS (9.4-12.5) H 12/19/17 09:30 INR 1.22 (0.93-1.08) H 12/19/17 09:30 APTT 28.5 Seconds (25.1-36.5) 12/19/17 09:30 - Head Exam Head Exam: ATRAUMATIC, NORMAL INSPECTION, NORMOCEPHALIC - Eye Exam Eye Exam: EOMI, Normal appearance - ENT Exam ENT Exam: Mucous Membranes Moist - Neck Exam Neck Exam: Normal Inspection - Respiratory Exam Respiratory Exam: Clear to Ausculation Bilateral - Cardiovascular Exam Cardiovascular Exam: REGULAR RHYTHM - GI/Abdominal Exam GI & Abdominal Exam: Normal Bowel Sounds - Extremities Exam Additional comments: weeping lower extremities bilaterally. erythema noted bilaterally. - Neurological Exam Neurological Exam: Alert, Awake - Psychiatric Exam Psychiatric exam: Normal Affect, Normal Mood - Skin Skin Exam: Dry Assessment and Plan - Assessment and Plan (Free Text) Assessment: Pt. is a 72 y.o male admitted for bilateral lower extremity swelling. Plan: -Continue wound care. -Continue IV antibiotics -Daily wound dressing . Further management per wound care. -Pain management per medical team Will discuss with Dr. Damico
[2017-12-20] MEDS: Insulin Lispro 1 UNITS/0.01 ML SC SCH ×3 (08:07→18:09)
--- NOTE | 2017-12-20 10:19 | CP.PCM.PCO ---
Physician Communication Note - Physician Communication Note Physician Communication Note: CT and Liver OK:Pete EGD
[2017-12-20] MEDS: Insulin Detemir 100 units/ml Vial (Levemir) SC SCH ×2 (11:00→22:10)
[2017-12-20] MEDS: Clotrimazole 1% Top Soln(10 ml) TOP SCH ×2 (11:00→18:48)
[2017-12-20 12:44] LABS: HEPATITIS B SURFACE AG Negative (NEGATIVE)
[2017-12-20 12:50] LABS: HEPATITIS A IGM NEGATIVE (NEGATIVE); HEPATITIS B CORE AB NEGATIVE (NEGATIVE)
[2017-12-20 13:02] LABS: HEPATITIS C ANTIBODY NEGATIVE (NEGATIVE)
--- NOTE | 2017-12-20 17:55 | PN ---
DATE: SUBJECTIVE: Patient is a 72 years old, seen and examined, he still feels a lot better. His leg swelling has improved somewhat. His shortness of breath is better. PHYSICAL EXAMINATION: VITAL SIGNS: He is afebrile. Pulse 72, respiration 18, blood pressure 109/57. LUNGS: Bilateral good air flow. No rhonchi or crackles. HEART: S1, S2 audible. ABDOMEN: Soft, obese, nontender. No rebound, no guarding. NEUROLOGICAL: Patient is awake and alert, able to communicate. Bilateral leg erythema and redness with blisters on both legs, right more than the left. LABORATORY EXAMINATION: WBC 12.2, hemoglobin 10, hematocrit 29.8, platelet of 80. Chemistry: Sodium 141, potassium 5, chloride 109, CO2 of 25, BUN 12, creatinine , blood sugar is 127. ASSESSMENT AND PLAN: 1. Bilateral leg cellulitis. 2. History of hepatocellular carcinoma. 3. Poor oral intake. 4. Hypertension. 5. Hyperlipidemia. 6. Insulin-dependent diabetes. So plan is I will request for TCU evaluation to complete a course of antibiotics and wound care. Pierre Holt MD
[2017-12-21] MEDS: Silver Sulfadiazine 1% Cream (25 gm) TP SCH ×5 (00:30→18:35)
--- NOTE | 2017-12-21 02:24 | PN ---
DATE: 12/20/2017 SUBJECTIVE: The patient was seen earlier this morning in room 569, bed 2. The patient is in bed, in no acute distress, nontoxic. Answering questions appropriately. PHYSICAL EXAMINATION: VITAL SIGNS: Temperature of 98, blood pressure is 109/50, respiratory rate of 16. HEENT: Unremarkable. NECK: Supple. LUNGS: Have decreased breath sounds. HEART: Normal S1 and S2. ABDOMEN: Soft, nontender. No organomegaly. No rebound. No guarding. No masses. LABORATORY EXAMINATION: Reveals a white count of 4.2, his sed rate is 90. Chemistry reveals a BUN of 72, creatinine of 1.9. Urinalysis is noted and serology is negative. Microbiology reveals gram-negative cathy in the urine. The blood cultures are negative. Review of orders reveals the patient to be on ceftaroline and the patient had received vancomycin one dose. ASSESSMENT AND PLAN: This is a 72-year-old male with diabetes and obesity and status post partial colectomy with bilateral lower extremity edema and chronic changes with bilateral lower extremity skin and skin structure infection and fluid from lymphedema and fungal infections between the toes and diabetic and obesity and partial colectomy, on Teflaro, day #2 and and Clotrimazole between the toes and we will follow clinically, check on the culture results. He also has gram-negative cathy in the urine and urinalysis with 5 to 10 wbc-s and no bacteria and we will follow closely with you. Jerman Weinberg MD
[2017-12-21 07:54] LABS: MEAN CORPUSCULAR HEMOGLOBIN 33.2 pg (25.0-35.0); MEAN CORPUSCULAR HGB CONC 33.9 g/dl (31.0-37.0); MEAN PLATELET VOLUME 10.7 fl (7.0-11.0); RBC 3.01 10^6/uL (3.5-6.1); RED CELL DISTRIBUTION WIDTH 14.5 % (11.5-14.5); WHITE BLOOD COUNT 4.5 10^3/ul (4.5-11.0)
[2017-12-21 08:07] LABS: ALB/GLOB RATIO 0.8 (1.1-1.8); CALCIUM 9.6 mg/dL (8.4-10.5)
[2017-12-21] MEDS: Insulin Lispro 1 UNITS/0.01 ML SC SCH ×2 (08:36→16:56)
--- NOTE | 2017-12-21 08:38 | PQF RENAL ---
Dr. Holt, This form is a permanent part of the medical record Patient noted to have history of HTN and DM. BUN and creatinine elevated (82/2.0) on admission. CT scan done without contrast with GI noting "renal insufficiency". Please indicate if this is a manifestation of CKD and the stage, if present. Clarification of your documentation is requested to better reflect the severity of illness and intensity of treatment of your patient. Indicators present [] Oliguria/anuria [] Edema/weight gain [] Hyponatremia [] Confusion/mental status changes [] Increased Blood Urea Nitrogen/Creatinine [] Increased Potassium/Decreased potassium [] Anemia (male <13.5, female <12.0) [] Proteinuria [] Metabolic Acidosis OR Alkalosis [] Hypotension/shock [] Decreased GFR [] Other: [] Location in the medical record that reflects the above clinical findings: PHYSICIAN'S RESPONSE Based on your medical judgment of the clinical indicators outlined above, are you treating this patient for a known or suspected: [] Acute Renal Failure [] Acute Kidney Injury [] Azotemia/prerenal azotemia [] Chronic kidney disease Stage I [] Stage II [] Stage III [] Stage IV [] [] Other condition/diagnosis:[] [] If Unable to Determine, please check the box, sign and date. Present On Admission (POA) Indicator: [] Present at the time of admission [] Not present at the time of admission [] Clinically Undetermined In responding to this query, please exercise your independent professional judgment. The fact that a question is asked does not imply that any particular answer is desired or expected. Thank you for your clarification on this documentation. If you have any questions please call:[ ] * Thank you, [ ]Brenda Mueller [facility] #[id number] wound treatment rn Chronic Kidney Disease Stages *[employer]* Stage I GFR >90 Stage II GFR 60-89 Stage III GFR 30-59 Stage IV GFR 15-29 Stage V~~~~~~~~~~ GFR <15~~~~~~~~~~~~~ MTDD
[2017-12-21 09:09] VITALS: RESP 20
--- NOTE | 2017-12-21 10:52 | CP.PCM.PN ---
Subjective - Date & Time of Evaluation Date of Evaluation: 12/21/17 Time of Evaluation: 10:49 - Subjective Subjective: Patient seen and examined at bedside. Per nursing no acute events occurred overnight. Patient reports his legs feeling better today. Patient is tolerating diet with no complaints. Patient denies any chest pain, abdominal pain, fevers, chills, nausea, vomiting, lightheaded, dizziness, or any other complaints. Objective - Vital Signs/Intake and Output Vital Signs (last 24 hours): Temp Pulse Resp BP Pulse Ox 97.9 F 89 20 137/65 97 12/21/17 06:00 12/21/17 08:51 12/21/17 06:00 12/21/17 08:51 12/21/17 06:00 Intake and Output: 12/21/17 12/21/17 06:59 18:59 Intake Total 1020 Balance 1020 - Medications Medications: Current Medications Allopurinol (Zyloprim) 300 mg PO QAM [facility] Last Admin: 12/20/17 11:06 Dose: 300 mg Aspirin (Aspirin Chewable) 81 mg PO QAM [facility] Last Admin: 12/20/17 11:06 Dose: 81 mg Atorvastatin Calcium (Lipitor) 20 mg PO DIN [facility] Last Admin: 12/20/17 18:17 Dose: 20 mg Clotrimazole (Lotrimin Af 1%) 0 ml TOP BID [facility] Last Admin: 12/20/17 18:48 Dose: 1 applic Furosemide (Lasix) 40 mg IVP DAILY [facility] Last Admin: 12/20/17 18:21 Dose: Not Given Ceftaroline Fosamil 200 mg/ (Sodium Chloride) 50 mls @ 50 mls/hr IVPB Q12H [facility] PRN Reason: Protocol Stop: 12/26/17 19:46 Last Admin: 12/21/17 08:52 Dose: 50 mls/hr Insulin Detemir (Levemir) 19 unit SC AMHS [facility] Last Admin: 12/20/17 22:10 Dose: 19 unit Insulin Human Lispro (Humalog) 45 units SC AC [facility] Last Admin: 12/21/17 08:36 Dose: Not Given Losartan Potassium (Cozaar) 100 mg PO DAILY [facility] Last Admin: 12/20/17 11:06 Dose: 100 mg Metoprolol Tartrate (Lopressor) 100 mg PO BRKDIN [facility] Last Admin: 12/21/17 08:51 Dose: 100 mg Pyridoxine HCl (Vitamin B6 50 Mg Tab) 100 mg PO DAILY [facility] Last Admin: 12/20/17 11:04 Dose: 100 mg Silver Sulfadiazine (Silvadene 1% 25 Gm) 0 gm TP Q6 [facility] Last Admin: 12/21/17 00:30 Dose: Not Given - Labs Labs: 12/21/17 07:00 12/21/17 07:00 PT 14.1 SECONDS (9.4-12.5) H 12/19/17 09:30 INR 1.22 (0.93-1.08) H 12/19/17 09:30 APTT 28.5 Seconds (25.1-36.5) 12/19/17 09:30 - Head Exam Head Exam: ATRAUMATIC, NORMAL INSPECTION, NORMOCEPHALIC - Eye Exam Eye Exam: EOMI, Normal appearance - ENT Exam ENT Exam: Mucous Membranes Moist - Respiratory Exam Respiratory Exam: Clear to Ausculation Bilateral, NORMAL BREATHING PATTERN - Cardiovascular Exam Cardiovascular Exam: REGULAR RHYTHM - GI/Abdominal Exam GI & Abdominal Exam: Soft, Normal Bowel Sounds - Extremities Exam Extremities Exam: Pedal Edema Additional comments: Bilateral lower extremity erythema and weeping. Bandages placed bilaterally. - Neurological Exam Neurological Exam: Alert, Awake - Psychiatric Exam Psychiatric exam: Normal Affect, Normal Mood - Skin Skin Exam: Dry, Intact Assessment and Plan - Assessment and Plan (Free Text) Assessment: Pt. is a 72 y.o male admitted for bilateral lower extremity swelling. Plan: -Continue wound care. -Continue IV antibiotics -Daily wound dressing . Further management per wound care. -Awaiting EGD. -Pain management per medical team Will discuss with Dr. Damico
[2017-12-21] MEDS: Clotrimazole 1% Top Soln(10 ml) TOP SCH ×2 (11:07→18:35)
[2017-12-21] MEDS: Insulin Detemir 100 units/ml Vial (Levemir) SC SCH ×2 (12:04→22:01)
--- NOTE | 2017-12-21 15:43 | CP.PCM.CON ---
History of Present Illness - History of Present Illness History of Present Illness: pgy-2 Heme/onc consult note 72 yo amle with pmh of diabetes, MARTE cirrhosis, enlarged prostates, PVD, chronic stasis dermititis, htn, cad, hepatocellular carcinoma presented for increasing leg swelling and multiple sores. Patient was seen in the office with Dr. Swenson who convinced him to come to the ED. Patient states that he decided to come to the hospital because he was having difficulty walking. He denies any trauma but recent under went procedure for is hepatocellular carcinoma. He reports no taste in his month. Patient states that he is feeling better since admission but continues to have pain in his legs. He reports podiatry saw patient and changed his dressings. He states that he is tolerating diet. He denies fever, chill, chest pain, sob, headache, abd pain, vomiting, dysuea. PMH: diabetes, MARTE cirrhosis, enlarged prostates, PVD, chronic stasis dermititis, htn, cad, hepatocellular carcinoma psh: Chemoembolization of hepatic tumor, colon surgery social history: denies smoking, alcohol use, illicit drug use Review of Systems - Review of Systems All systems: reviewed and no additional remarkable complaints except Past Patient History - Tetanus Immunizations Tetanus Immunization: Unknown - Past Social History Smoking Status: Never Smoked - CARDIAC Hx Cardiac Disorders: Yes Hx Hypertension: Yes Hx Pacemaker: No - PULMONARY Hx Respiratory Disorders: No - NEUROLOGICAL Hx Paralysis: No - HEENT Hx HEENT Problems: No - RENAL Hx Chronic Kidney Disease: No - ENDOCRINE/METABOLIC Hx Diabetes Mellitus Type 2: Yes - HEMATOLOGICAL/ONCOLOGICAL Hx Blood Transfusions: Yes Hx Blood Transfusion Reaction: No - INTEGUMENTARY Hx Dermatological Problems: No - MUSCULOSKELETAL/RHEUMATOLOGICAL Hx Musculoskeletal Disorders: Yes - GASTROINTESTINAL Hx Gastrointestinal Disorders: No - GENITOURINARY/GYNECOLOGICAL Hx Genitourinary Disorders: No - PSYCHIATRIC Hx Emotional Abuse: No Hx Physical Abuse: No Hx Substance Use: No - SURGICAL HISTORY Other/Comment: partial colectomy 2002 - ANESTHESIA Hx Anesthesia: Yes Hx Anesthesia Reactions: No Hx Malignant Hyperthermia: No Meds Allergies/Adverse Reactions: Allergies Allergy/AdvReac Type Severity Reaction Status Date / Time No Known Allergies Allergy Verified 12/19/17 11:51 - Medications Medications: Current Medications Allopurinol (Zyloprim) 300 mg PO [facility] Last Admin: 12/21/17 11:05 Dose: 300 mg Aspirin (Aspirin Chewable) 81 mg PO QAM [facility] Last Admin: 12/21/17 11:05 Dose: 81 mg Atorvastatin Calcium (Lipitor) 20 mg PO DIN [facility] Last Admin: 12/20/17 18:17 Dose: 20 mg Clotrimazole (Lotrimin Af 1%) 0 ml TOP BID [facility] Last Admin: 12/21/17 11:07 Dose: 1 applic Furosemide (Lasix) 40 mg IVP DAILY [facility] Last Admin: 12/21/17 11:56 Dose: Not Given Ceftaroline Fosamil 200 mg/ (Sodium Chloride) 50 mls @ 50 mls/hr IVPB Q12H [facility] PRN Reason: Protocol Stop: 12/21/17 20:46 Last Admin: 12/21/17 08:52 Dose: 50 mls/hr Ceftaroline Fosamil 400 mg/ (Sodium Chloride) 50 mls @ 50 mls/hr IVPB Q12H [facility] Stop: 12/26/17 19:46 Insulin Detemir (Levemir) 19 unit SC AMHS [facility] Last Admin: 12/21/17 12:04 Dose: 19 unit Insulin Human Lispro (Humalog) 10 units SC ACBD [facility] Losartan Potassium (Cozaar) 25 mg PO DAILY [facility] Metoprolol Tartrate (Lopressor) 100 mg PO BRKDIN [facility] Last Admin: 12/21/17 08:51 Dose: 100 mg Pyridoxine HCl (Vitamin B6 50 Mg Tab) 100 mg PO DAILY [facility] Last Admin: 12/21/17 11:06 Dose: 100 mg Silver Sulfadiazine (Silvadene 1% 25 Gm) 0 gm TP Q6 [facility] Last Admin: 12/21/17 00:30 Dose: Not Given Silver Sulfadiazine (Silvadene 1% 25 Gm) 0 gm TP Q6 [facility] Physical Exam - Constitutional Appears: No Acute Distress - Head Exam Head Exam: ATRAUMATIC, NORMOCEPHALIC - Eye Exam Eye Exam: EOMI, Normal appearance - ENT Exam ENT Exam: Mucous Membranes Moist - Respiratory Exam Respiratory Exam: Clear to Auscultation Bilateral, NORMAL BREATHING PATTERN. absent: Rhonchi, Wheezes, Respiratory Distress - Cardiovascular Exam Cardiovascular Exam: REGULAR RHYTHM, +S1, +S2. absent: Tachycardia, Diastolic murmur, Systolic Murmur - GI/Abdominal Exam GI & Abdominal Exam: Normal Bowel Sounds, Soft. absent: Diminished Bowel Sounds , Distended, Tenderness - Extremities Exam Additional comments: dressing is clean, dry an intact - Neurological Exam Neurological exam: Alert, Oriented x3 - Psychiatric Exam Psychiatric exam: Normal Affect - Skin Skin Exam: Normal Color, Warm Results - Vital Signs Recent Vital Signs: Last Vital Signs Temp 97.9 F 12/21/17 06:00 Pulse 89 12/21/17 08:51 Resp 20 12/21/17 06:00 BP 99/54 L 12/21/17 11:56 Pulse Ox 97 12/21/17 06:00 - Labs Result Diagrams: 12/21/17 07:00 12/21/17 07:00 Labs: Laboratory Results - last 24 hr 12/20/17 12/20/17 12/20/17 05:00 16:04 21:31 WBC RBC Hgb Hct MCV MCH MCHC RDW Plt Count MPV Sodium Potassium Chloride Carbon Dioxide Anion Gap BUN Creatinine Est GFR ( Amer) Est GFR (Non-Af Amer) POC Glucose (mg/dL) 150 H 209 H Random Glucose Calcium Total Bilirubin AST ALT Alkaline Phosphatase Total Protein Albumin Globulin Albumin/Globulin Ratio Hepatitis C Antibody Non reactive Hep C Ab Signal/Cutoff 0.03 12/21/17 12/21/17 12/21/17 06:29 07:00 07:00 WBC 4.5 RBC 3.01 L Hgb 10.0 L Hct 29.5 L MCV 98.0 MCH 33.2 MCHC 33.9 RDW 14.5 Plt Count 87 L MPV 10.7 Sodium 141 Potassium 4.6 Chloride 110 H Carbon Dioxide 24 Anion Gap 11 BUN 60 H Creatinine 1.8 H Est GFR ( Amer) 45 Est GFR (Non-Af Amer) 37 POC Glucose (mg/dL) 95 Random Glucose 96 Calcium 9.6 Total Bilirubin 0.8 AST 59 ALT 42 Alkaline Phosphatase 108 Total Protein 6.7 Albumin 3.0 Globulin 3.7 Albumin/Globulin Ratio 0.8 L Hepatitis C Antibody Hep C Ab Signal/Cutoff Assessment & Plan - Assessment and Plan (Free Text) Assessment: 72 yo male with PMH of diabetes, MARTE cirrhosis, enlarged prostates, PVD, chronic stasis dermititis, htn, cad, hepatocellular carcinoma presented for increasing leg swelling and multiple sores. bilateral leg cellulitis diabetes HTN hyperlipidemia hepatocellular carcinoma cirrhosis with portal HTN anemia plan: patient will need MRI of liver however currently creatinine is above baseline consider nephroology consult for elevated creatinine continue ceftaroline per ID surgery for wound care case reviewed and discussed with Dr. Delgado
--- NOTE | 2017-12-21 16:02 | CON ---
DATE: 12/19/2017 ONCOLOGY CONSULTATION LOCATION: Patient is in room 569, bed 2. HISTORY OF PRESENT ILLNESS: Carrington is well known to our service. This is a 72-year-old male with a past history of diabetes mellitus, history of HCC involving the right lobe of the of the liver, MARTE cirrhosis, status post radiofrequency ablation of the lesion x2 followed by intraarterial chemotherapy with Adriamycin with stabilization of the disease and the last MRI had actually shown no new evidence of disease at this point, which was dated 10/2017. Patient has a history of osteoarthritis, cataracts, coronary artery disease, hypertension, peripheral vascular disease, BPH, has been having progressive bilateral lower extremity swelling, failure to thrive, weeping from the skin on both lower extremities with ulceration of the posterior aspect of his lower extremities as the skin is opened up with many areas of laceration and with this, when the patient was seen in the office, he looked weak. He looked emaciated. He looked actually clinically icteric along with weeping ulcers. I told the patient that he might be best served by coming into the hospital, so we could take care of all the issues of the same type while trying to re-ascertain what could be happening internally and in addition to all of this, the patient has had poor appetite and has lost more than 40 pounds. The patient recent chemotherapy. He denies any chest pain, shortness of breath, nausea, vomiting, but has a very poor appetite, complains of significant complaints of pain soreness in the posterior aspect of his legs, especially the calves extending up to the thighs. REVIEW OF SYSTEMS: A 12-system review of systems was done, which were all negative except for what is mentioned in the HPI. Patient does complain constitutionally of anorexia, malaise, weight loss without any fevers or chills. Patient denied any history of chest pain, dyspnea on exertion. No coughing. No hemoptysis. Patient denies any significant abdominal pain, dysphagia, nausea or vomiting in the review of the gastrointestinal system. Patient denies any history of dysuria on the urinary system review. Patient has had chronic swelling of both the lower extremities, which has worsened over the last 2 to 3 months. Patient feels it may have worsened right after his ablative procedure with chemotherapy. Patient has an umbilical hernia, which currently is not bothering him, had been repaired several years ago, but appears to be resurfacing. PHYSICAL EXAMINATION GENERAL: Patient appears to be nontoxic, in no acute distress. Chronically ill with temporal muscle wasting noted. VITAL SIGNS: Reveals T-max of 98.4, pulse 88, respirations 18, blood pressure 154/60, pulse ox is 100% on room air. HEENT: Conjunctiva pale. Sclerae are anicteric. Pupils are equally reactive to light and accommodation. CARDIOVASCULAR SYSTEM: Reveals PMI to be in the fifth intercostal space inside the midclavicular line. S1 and S2 are normal. No gallop or murmur is heard. ABDOMEN: Soft, nontender. Distended. Patient has tenderness over the periumbilical area. EXTREMITIES: Reveals bilateral lower extremity edema and erythema, located from the pretibial area to the foot with mild tenderness on palpation, ulceration of the skin with constant weeping. NEUROLOGIC: Reveals higher functions to be normal. No focal deficits are noted. LABORATORY DATA: Reveals the white count is 6.6, hemoglobin 11.1, hematocrit 31.9, platelet count is 121,000. Sodium is 138, K is 5.4, chloride is 105, CO2 is 21, BUN is 82, creatinine 2, blood sugar is 98, ESR is 90 with a lipase of 351. ASSESSMENT NOTES: A 72-year-old male with hepatocellular carcinoma, treated with triple antibiotics with frequency ablation, one treatment with intraarterial chemotherapy with Adriamycin, currently here with failure to thrive, progressive leg edema with weeping from the skin of both lower extremities. He is admitted here for further management. Patient had a CAT scan of the chest, abdomen and pelvis, which we will review. Patient may be best served by getting an MRI of the liver with and without gadolinium to determine the status of the lesion in the liver as the last MRI apparently was good, which was done about 3 months ago. I did speak with surgeon, to find out what his plans are on the lower extremity. In the meantime, we will continue diet as tolerated and watch his counts as well. So, platelet count of 121,000 is not unusual for him. Usually, his count remains between 96 to 110. Counts could be elevated because of inflammatory response and/or underlying infection. PLAN: We will follow the patient with you and make appropriate recommendations. I do feel very strongly that doing an MRI while he is in the hospital would be most appropriate. Patient is going to be assessed for endoscopy and definitely, a followup colonoscopy as well. Routine post-exam instructions have been given to the patient. His niece has power of [employer]. I spoke to his niece in great length today. Routine post-exam instructions have been given to the patient. Time spent with the patient is 80 minutes, in which most of the time was spent in [id number] contact with the patient, trying to talk him and console him and telling him what his future has in store for at this point in time, especially when the clinical appearance of any tumor appear to have disappeared with the prior treatments. We will speak to who is his treating physician at medical school as well. Catarino Swenson MD
--- NOTE | 2017-12-21 17:37 | PN ---
DATE: SUBJECTIVE: The patient is 72 years old, seen and examined, sitting in chair, seems to be comfortable. He states he is feeling a lot better. He is able to eat. PHYSICAL EXAMINATION: VITAL SIGNS: He is afebrile, pulse 89, respirations 20, blood pressure 137/65. LUNGS: Bilateral fair airflow. No rhonchi or crackles. HEART: S1 and S2 audible. ABDOMEN: Soft, obese, nontender, no rebound, no guarding. NEUROLOGICAL: He is awake, alert, oriented, communicative. EXTREMITIES: Bilaterally he has chronic stasis dermatitis with erythema. LABORATORY DATA: WBC is 4.5, hemoglobin 10, hematocrit 29.5, platelets low at 57. Chemistry: Sodium 141, potassium 4.6, chloride 110, CO2 of 24, BUN 60, creatinine 1.8, blood sugar of 96. ASSESSMENT AND PLAN: 1. Bilateral leg cellulitis. 2. Bilateral leg edema. 3. Renal insufficiency. 4. Noninsulin-dependent diabetes. PLAN: We cut down his losartan to 25, monitor his blood pressure and give him Lasix, if his blood pressure is above 110 systolic. The patient needs to be evaluated by TCU. If accepted, can be transferred to TCU where he will finish his course of antibiotics. The patient's blood sugar seems to be running on the low side. I will adjust his insulin and monitor his blood sugar. Pierre Holt MD
[2017-12-22] MEDS: Silver Sulfadiazine 1% Cream (25 gm) TP SCH ×8 (00:04→20:34)
--- NOTE | 2017-12-22 03:28 | PN ---
DATE: SUBJECTIVE: Patient was seen earlier this morning in room 567, bed 2. No fevers, no chills. No nausea or vomiting. PHYSICAL EXAMINATION: VITAL SIGNS: Temperature is 97, blood pressure is 101/50, respiratory rate is 16. HEENT: Unremarkable. NECK: Supple. LUNGS: Have decreased breath sounds. HEART: Normal S1 and S2. ABDOMEN: Soft. LABORATORY EXAMINATION: Reveals a white count of 4.5, sed rate of 90. Chemistries reveals a BUN of 60, creatinine of 1.8 and urinalysis is noted and microbiology reveals E. coli in the urine. Blood cultures are negative. E. coli in the urine is found. ASSESSMENT: A 72-year-old male with diabetes and obesity, status post partial colectomy, bilateral lower extremity edema and chronic changes bilateral lower extremity skin and skin structure infection from lymphedema and fungal infection between the toes and diabetic obesity, partial colectomy day #3, clotrimazole between the toes and we will discuss with PMD. Jerman Weinberg MD
[2017-12-22 06:53] LABS: BASO # 0.03 K/mm3 (0.0-2.0); BASO % 0.5 % (0.0-3.0); EOS # 0.3 (0.0-0.7); EOS % 4.9 % (1.5-5.0); GRAN # 3.44 (1.4-6.5); GRAN % 62.5 % (50.0-68.0); HEMOGLOBIN 10.3 g/dL (14.0-18.0); LYMPH # 1.1 (1.2-3.4); LYMPH % 19.6 % (22.0-35.0); MEAN CELL VOLUME 98.1 fl (80.0-105.0); MEAN CORPUSCULAR HEMOGLOBIN 33.2 pg (25.0-35.0); MEAN CORPUSCULAR HGB CONC 33.9 g/dl (31.0-37.0); MEAN PLATELET VOLUME 10.8 fl (7.0-11.0); MONO # 0.7 (0.1-0.6); MONO % 12.5 % (1.0-6.0); RBC 3.1 10^6/uL (3.5-6.1); RED CELL DISTRIBUTION WIDTH 14.5 % (11.5-14.5); WHITE BLOOD COUNT 5.5 10^3/ul (4.5-11.0)
--- NOTE | 2017-12-22 07:28 | CP.PCM.PN ---
Subjective - Date & Time of Evaluation Date of Evaluation: 12/22/17 Time of Evaluation: 07:26 - Subjective Subjective: Patient seen and examined at bedside. Per nursing no acute events occurred overnight. Patient denies any fevers, chills ,nausea, vomiting, dizziness, changes in vision, shortness of breath, or any other complaints. Objective - Vital Signs/Intake and Output Vital Signs (last 24 hours): Temp Pulse Resp BP Pulse Ox 97.5 F L 69 20 101/54 L 99 12/21/17 14:00 12/21/17 17:18 12/21/17 14:00 12/21/17 17:18 12/21/17 14:00 Intake and Output: 12/22/17 12/22/17 06:59 18:59 Intake Total 660 Balance 660 - Medications Medications: Current Medications Allopurinol (Zyloprim) 300 mg PO QAM [facility] Last Admin: 12/21/17 11:05 Dose: 300 mg Aspirin (Aspirin Chewable) 81 mg PO QAM [facility] Last Admin: 12/21/17 11:05 Dose: 81 mg Atorvastatin Calcium (Lipitor) 20 mg PO DIN [facility] Last Admin: 12/21/17 17:18 Dose: 20 mg Clotrimazole (Lotrimin Af 1%) 0 ml TOP BID [facility] Last Admin: 12/21/17 18:35 Dose: 1 applic Furosemide (Lasix) 40 mg IVP DAILY [facility] Last Admin: 12/21/17 11:56 Dose: Not Given Ceftaroline Fosamil 400 mg/ (Sodium Chloride) 50 mls @ 50 mls/hr IVPB Q12H [facility] Stop: 12/26/17 19:46 Insulin Detemir (Levemir) 19 unit SC AMHS [facility] Last Admin: 12/21/17 22:01 Dose: Not Given Insulin Human Lispro (Humalog) 10 units SC ACBD [facility] Last Admin: 12/21/17 16:56 Dose: Not Given Losartan Potassium (Cozaar) 25 mg PO DAILY [facility] Metoprolol Tartrate (Lopressor) 100 mg PO BRKDIN [facility] Last Admin: 12/21/17 17:18 Dose: 100 mg Pyridoxine HCl (Vitamin B6 50 Mg Tab) 100 mg PO DAILY [facility] Last Admin: 12/21/17 11:06 Dose: 100 mg Silver Sulfadiazine (Silvadene 1% 25 Gm) 0 gm TP Q6 [facility] Last Admin: 12/22/17 05:34 Dose: Not Given Silver Sulfadiazine (Silvadene 1% 25 Gm) 0 gm TP Q6 [facility] Last Admin: 12/22/17 05:34 Dose: Not Given - Labs Labs: 12/22/17 06:20 12/21/17 07:00 PT 14.1 SECONDS (9.4-12.5) H 12/19/17 09:30 INR 1.22 (0.93-1.08) H 12/19/17 09:30 APTT 28.5 Seconds (25.1-36.5) 12/19/17 09:30 - Head Exam Head Exam: ATRAUMATIC, NORMAL INSPECTION, NORMOCEPHALIC - Eye Exam Eye Exam: EOMI, Normal appearance - ENT Exam ENT Exam: Mucous Membranes Moist - Respiratory Exam Respiratory Exam: Clear to Ausculation Bilateral, NORMAL BREATHING PATTERN - Cardiovascular Exam Cardiovascular Exam: REGULAR RHYTHM - GI/Abdominal Exam GI & Abdominal Exam: Soft, Normal Bowel Sounds - Extremities Exam Extremities Exam: Full ROM - Back Exam Back Exam: NORMAL INSPECTION - Neurological Exam Neurological Exam: Alert, Awake - Psychiatric Exam Psychiatric exam: Normal Affect, Normal Mood - Skin Skin Exam: Dry, Intact Assessment and Plan - Assessment and Plan (Free Text) Assessment: Pt. is a 72 y.o male admitted for bilateral lower extremity swelling. Plan: -Continue wound care. -Continue IV antibiotics -Daily wound dressing . Further management per wound care. -Awaiting EGD. -Pain management per medical team. Will discuss with Dr. Damico
[2017-12-22 07:32] LABS: ALB/GLOB RATIO 0.8 (1.1-1.8); ALBUMIN 2.8 g/dL (3.0-4.8); CALCIUM 9.4 mg/dL (8.4-10.5)
[2017-12-22] MEDS: Insulin Lispro 1 UNITS/0.01 ML SC SCH ×2 (08:28→15:00)
--- NOTE | 2017-12-22 08:30 | CP.PCM.PCO ---
Physician Communication Note - Physician Communication Note Physician Communication Note: Pt needs EGD for weight loss evaluation
--- NOTE | 2017-12-22 09:01 | CP.PCM.PN ---
Subjective - Date & Time of Evaluation Date of Evaluation: 12/22/17 Time of Evaluation: 07:30 - Subjective Subjective: PGY-[address] Swenson's service Patient seen and examined at bedside. No acute distress. Patient reports acid reflex this morning. He states that he feels a little weak when walking and would like PT. He sates he feels better, pain in his legs has improved. He denies fever, chills, chest pain, sob, abd pain, n/v, diarrhea. Patient is tolerating diet, no decrease in appetite. PT recommended TCU Objective - Vital Signs/Intake and Output Vital Signs (last 24 hours): Temp Pulse Resp BP Pulse Ox 97.9 F 70 20 108/54 L 98 12/22/17 06:00 12/22/17 08:26 12/22/17 06:00 12/22/17 08:26 12/22/17 06:00 Intake and Output: 12/22/17 12/22/17 06:59 18:59 Intake Total 660 Balance 660 - Medications Medications: Current Medications Allopurinol (Zyloprim) 300 mg PO QAM [facility] Last Admin: 12/21/17 11:05 Dose: 300 mg Aspirin (Aspirin Chewable) 81 mg PO QAM [facility] Last Admin: 12/21/17 11:05 Dose: 81 mg Atorvastatin Calcium (Lipitor) 20 mg PO DIN [facility] Last Admin: 12/21/17 17:18 Dose: 20 mg Clotrimazole (Lotrimin Af 1%) 0 ml TOP BID [facility] Last Admin: 12/21/17 18:35 Dose: 1 applic Furosemide (Lasix) 40 mg IVP DAILY [facility] Last Admin: 12/21/17 11:56 Dose: Not Given Ceftaroline Fosamil 400 mg/ (Sodium Chloride) 50 mls @ 50 mls/hr IVPB Q12H [facility] Stop: 12/26/17 19:46 Last Admin: 12/22/17 08:27 Dose: 50 mls/hr Insulin Detemir (Levemir) 19 unit SC AMHS [facility] Last Admin: 12/21/17 22:01 Dose: Not Given Insulin Human Lispro (Humalog) 10 units SC ACBD [facility] Last Admin: 12/22/17 08:28 Dose: Not Given Losartan Potassium (Cozaar) 25 mg PO DAILY [facility] Metoprolol Tartrate (Lopressor) 100 mg PO BRKDIN [facility] Last Admin: 12/22/17 08:26 Dose: 100 mg Pyridoxine HCl (Vitamin B6 50 Mg Tab) 100 mg PO DAILY [facility] Last Admin: 12/21/17 11:06 Dose: 100 mg Silver Sulfadiazine (Silvadene 1% 25 Gm) 0 gm TP Q6 [facility] Last Admin: 12/22/17 05:34 Dose: Not Given Silver Sulfadiazine (Silvadene 1% 25 Gm) 0 gm TP Q6 [facility] Last Admin: 12/22/17 05:34 Dose: Not Given - Labs Labs: 12/22/17 06:20 12/22/17 06:20 PT 14.1 SECONDS (9.4-12.5) H 12/19/17 09:30 INR 1.22 (0.93-1.08) H 12/19/17 09:30 APTT 28.5 Seconds (25.1-36.5) 12/19/17 09:30 - Constitutional Appears: Well, No Acute Distress - Head Exam Head Exam: ATRAUMATIC, NORMAL INSPECTION, NORMOCEPHALIC - Eye Exam Eye Exam: Normal appearance - ENT Exam ENT Exam: Mucous Membranes Moist - Respiratory Exam Respiratory Exam: Clear to Ausculation Bilateral, NORMAL BREATHING PATTERN. absent: Rhonchi, Wheezes, Respiratory Distress - Cardiovascular Exam Cardiovascular Exam: REGULAR RHYTHM, +S1, +S2. absent: Tachycardia, Murmur - GI/Abdominal Exam GI & Abdominal Exam: Soft, Normal Bowel Sounds. absent: Distended, Firm, Guarding, Tenderness - Extremities Exam Additional comments: dressing on bilateral legs, clean, dry and intact - Neurological Exam Neurological Exam: Alert, Awake, Oriented x3 - Skin Skin Exam: Dry, Normal Color, Warm Assessment and Plan - Assessment and Plan (Free Text) Assessment: 72 yo male with PMH of diabetes, MARTE cirrhosis, enlarged prostates, PVD, chronic stasis dermititis, htn, cad, hepatocellular carcinoma presented for increasing leg swelling and multiple sores. bilateral leg cellulitis diabetes HTN hyperlipidemia hepatocellular carcinoma cirrhosis with portal HTN anemia Plan: CT chest/abd/pelvis showed cirrotic liver, splenomegaly, no suspicicous hepatic masses, limited without contrast patient will need MRI of liver, creatinine is imporved will order test nephrology consulted for elevated creatinine continue ceftaroline per ID surgery for wound care GI consulted for possible colonscopy tomorrow, patient has history of colon surgery and family history of colon can PT recommended TCU, pending TCU evaluation case reviewed and discussed with Dr. Delgado
[2017-12-22] MEDS ORDERED: Pantoprazole 40 mg EC Tab PO SCH (10:52)
[2017-12-22] MEDS ORDERED: Sodium Chloride 0.9% 1,000 ML IV SCH (11:00)
[2017-12-22] MEDS: Clotrimazole 1% Top Soln(10 ml) TOP SCH ×2 (11:11→19:00)
[2017-12-22] MEDS: Insulin Detemir 100 units/ml Vial (Levemir) SC SCH (11:11)
[2017-12-22 15:07] VITALS: TEMP 97.5; O2SAT 97
--- NOTE | 2017-12-22 17:47 | CON ---
DATE: 12/22/2017 REASON FOR CONSULTATION Acute kidney injury, hypernatremia. HISTORY OF PRESENT ILLNESS: A 72-year-old male previously unknown to me, was admitted on the with complaints of bilateral lower extremity edema, swelling, blisters, erythema. The patient has a history of chronic lymphedema for the last 30 years. At the time of presentation, his creatinine was 2.0. He was treated with antibiotics, he was receiving ceftaroline 200 mg every 12 hours. He was also given Lasix 40 mg daily for his e6dema. His creatinine today is 1.6, consultation is requested because there is a plan for an MRI to evaluate his liver. PAST MEDICAL AND SURGICAL HISTORY: The patient gives a history of hepatitis B since 1974, liver cancer diagnosis in 2015, for which he underwent embolization and ablation. Recurrence in 2016, for which he again underwent embolization and ablation, NIDDM since 1994, chronic anemia, thrombocytopenia, MARTE cirrhosis, BPH, progressive bilateral lower extremity swelling, recent weight loss, CAD. FAMILY HISTORY: Noncontributory. SOCIAL HISTORY: No smoking, alcohol use, no IV drug abuse. ALLERGIES: NO KNOWN DRUG ALLERGIES. MEDICATIONS AT HOME: Had been Feosol, vitamin D, aspirin, insulin, pyridoxine, omeprazole, multivitamin, simvastatin 40 mg, allopurinol 300, Lasix 40 every other day, Lopressor 100 b.i.d., losartan 100. REVIEW OF SYSTEMS: All systems are reviewed, pertinent positives as mentioned in history of presenting illness, rest unremarkable. PHYSICAL EXAMINATION: General: Elderly male sitting in bed. VITAL SIGNS: Blood pressure 99/57, heart rate 60, respiratory rate 20, temperature 97.9. HEENT: Normocephalic, atraumatic, positive pallor. Neck: Supple, no JVD. LUNGS: Bilateral equal air entry, bilateral equal expansion, no rales. CARDIAC: S1 and S2, regular rate and rhythm, no murmur, no rub. ABDOMEN: Obese, distended, soft, nontender, bowel sounds present. EXTREMITIES: Chronic stasis changes, chronic edema, hyperpigmentation of the skin. INTAKE AND OUTPUT: 1260/not charted. LABORATORY DATA: WBC 5.5, hemoglobin 10.3, hematocrit 30, platelets 82. Sodium 143, potassium 5, chloride 111, CO2 26, BUN 52, creatinine 1.6, glucose 93, calcium 9.4, AST 75, ALT 43, albumin 2.8. Urine culture, E-coli. Blood cultures no growth. CT of the chest, abdomen and pelvis from 12/19/2017 unremarkable. Kidneys unremarkable. Adrenals, cirrhotic liver with dystrophic calcification at the site of previously identified mass, splenomegaly. CURRENT MEDICATIONS: Aspirin 81, ceftaroline 400 every 12 hours, losartan 25 on hold, insulin, Lasix 40 IV daily, not given today, Levemir, Lipitor 20, Lopressor 100 b.i.d., Protonix, Silvadene, normal saline at 75, pyridoxine, Zyloprim. ASSESSMENT: 1. Acute kidney injury superimposed on chronic kidney disease stage II/III (?). 2. Suspect acute kidney injury is hemodynamically mediated. The patient is relatively hypotensive. 3. History of nonalcoholic steatohepatitis. 4. History of hepatocellular carcinoma x2, history of embolization and ablation. 5. Noninsulin-dependent diabetes mellitus. 6. Escherichia coli urinary tract infection. 7. Doubt any vasculitis/membranoproliferative glomerulonephritis since there is no proteinuria. PLAN: 1.. Discontinue losartan, the patient is hypotensive at present. 2.. Change Lopressor to 50 mg b.i.d. 3. Hold Lasix for 2 days. 4. Okay to do MRI with hydration. 5. Monitor daily labs. 6. Monitor daily urine output. Check urine for light chains. Thank you for the courtesy of this consultation. We will follow this patient closely with you. Lynda Fraga MD
[2017-12-22 18:41] VITALS: BP 98/45; PULSE 65
--- NOTE | 2017-12-22 20:20 | PN ---
DATE: 12/22/2017 SUBJECTIVE: The patient was seen earlier this morning in room 569, bed 2. The patient states he is tolerating the antibiotics well. His legs are much improved. PHYSICAL EXAMINATION: VITAL SIGNS: Temperature is 97, blood pressure is 101/50, respiratory rate of 20, heart rate of 70. HEENT: Unremarkable. NECK: Supple. LUNGS: Have decreased breath sounds. HEART: Normal S1 and S2. ABDOMEN: Soft, nontender. LABORATORY DATA: Reveals the patient's white count is 5.5, sed rate is 90. Chemistries revealed the patient's BUN of 62, creatinine of 1.6. Urinalysis is noted. Serologies reviewed. The patient's C-reactive protein is elevated at 10 and review of microbiology reveals the patient has E. coli in the urine. The blood cultures are negative. E. coli in the urine is pansensitive. The urinalysis is unremarkable. ASSESSMENT AND PLAN: This is a 72-year-old male with diabetes and obesity, status post partial colectomy, bilateral lower extremity edema, chronic changes now with bilateral lower extremity skin and skin structure infection with lymphedema and fungal infection between the toes, day #4 of antibiotics. We will discontinue sertraline. Unfortunately, no cultures of the legs are available and we will use Maxipime 1 g IV every 12 hours and p.o. doxycycline, complete therapy. Case discussed with case management, nursing staff, nurse assistants, and primary doctor. We will follow with you. Jerman Weinberg MD
[2017-12-22] MEDS ORDERED: Cefepime 1gm in NS 100ml 1 GM/100 ML BAG IVPB SCH (22:00)
--- NOTE | 2017-12-23 15:00 | DS ---
HISTORY OF PRESENT ILLNESS: The patient is 72 years old, seen and examined, sitting in chair, seems to be comfortable. No nausea or vomiting. No diarrhea. Eating and tolerating. He states he feels a little better. PHYSICAL EXAMINATION: VITAL SIGNS: He is afebrile, pulse 67, respirations 20, blood pressure 107/55. LUNGS: Bilateral fair airflow. No rhonchi or crackle. HEART: S1 and S2 audible. ABDOMEN: Soft, obese, nontender. No rebound. No guarding. EXTREMITIES: Bilateral legs, +2 edema. Erythema seems to be improving. LABORATORY EXAM: WBC is 5.5, hemoglobin 10.3, hematocrit 30.4, platelet of 82. Blood sugar is 136, sodium 143, potassium 5, chloride 111, CO2 of 26, BUN 52, creatinine 1.6, blood sugar of 136. Hepatitis profile is negative. ASSESSMENT: 1. Bilateral leg cellulitis, improving. 2. Bilateral leg edema, improving. 3. History of hepatocellular carcinoma of the liver. 4. Bilateral leg cellulitis. 5. History of cirrhosis of liver. 6. Chronic anemia. 7. Insulin-dependent diabetes. PLAN: The patient is being discharged to TCU where he will finish his course of antibiotics. We will get local wound care. We will monitor his blood sugar. Currently, he is on Teflaro. He seems to be thrombocytopenic. We will monitor it closely. The patient has been started on IV fluid and at the same time, he is on IV fluid, I will discuss with other consultants. Pierre Holt MD
--- NOTE | 2017-12-24 00:48 | CON ---
DATE: HISTORY OF PRESENT ILLNESS: A 72-year-old male seen at bedside for consultation, evaluation, and management of bilateral lower extremity cellulitis secondary to lower extremity edema. Patient states that he is feeling much better since his admission to the hospital on 12/19 and his pain has decreased considerably. He was previously seen in the [facility] at [facility] for his venous stasis ulcerations on his legs. PAST MEDICAL HISTORY: Patient's medical history is significant for obesity, type 2 diabetes with peripheral vascular disease, cardiac disorders, essential hypertension, osteoarthritis. PAST SURGICAL HISTORY: Includes partial colectomy. SOCIAL HISTORY: Patient states that he never smoked or used tobacco products, never drank alcohol abusively, and never used illicit drugs. MEDICATIONS: All medications are noted in MAR. ALLERGIES: PATIENT HAS NO KNOWN DRUG ALLERGIES. VITAL SIGNS: Reveal temperature of 98.1, pulse rate of 72, blood pressure of 113/46, respiratory rate 18. LABORATORY FINDINGS: Reveal white count of 3.5, hemoglobin of 9.4, hematocrit of 27.9, and platelet count of 69. OBJECTIVE: Nonpalpable pedal pulses secondary to +2 nonpitting lower extremity edema. Patient has decreased protective sensation noted bilaterally using 5.07 g monofilament wire testing. Capillary filling time is delayed x10. Both lower legs present with edema and erythema, which has been decreasing since admission. They are noted to be superficial, nonstageable wounds, dispersed throughout both lower legs that shows clear serous drainage. There is no purulence. None of the wounds probe to tendon or bone. There is no abscess formations noted. Venous Doppler of both lower legs has ruled out deep vein thrombosis. However, patient is still having some pain upon palpation of the gastrocnemius-soleus complex. ASSESSMENT: Weeping venous stasis ulcerations with accompanying resolving cellulitis bilaterally. PLAN: Patient's legs were cleansed with normal sterile saline. We will apply Silvadene, Xeroform, and dry sterile dressing with light compression to both lower legs. Patient was told to elevate his legs when he is resting. Patient will be seen and followed daily. Soto Griffith DPM
== END 2017-12-22 20:44 | DRG 603 ==
LOC: ED 08:29 → ERH 10:19 → 5RNO 11:27
PROVIDERS: ADMIT Internal Medicine; ATTEND Internal Medicine
DX: L03.115 Cellulitis of right lower limb (principal); C22.0 Liver cell carcinoma; N39.0 Urinary tract infection, site not specified; K76.6 Portal hypertension; N17.9 Acute kidney failure, unspecified; L03.116 Cellulitis of left lower limb; I89.0 Lymphedema, not elsewhere classified; K74.60 Unspecified cirrhosis of liver; D64.9 Anemia, unspecified; I12.9 Hypertensive chronic kidney disease with stage 1 through stage 4 chronic kidney disease, or unspecified chronic kidney disease; N18.2 Chronic kidney disease, stage 2 (mild); E11.51 Type 2 diabetes mellitus with diabetic peripheral angiopathy without gangrene; E11.22 Type 2 diabetes mellitus with diabetic chronic kidney disease; N40.0 Benign prostatic hyperplasia without lower urinary tract symptoms; I87.2 Venous insufficiency (chronic) (peripheral); B96.20 Unspecified Escherichia coli [E. coli] as the cause of diseases classified elsewhere; B19.20 Unspecified viral hepatitis C without hepatic coma; D69.6 Thrombocytopenia, unspecified; K21.9 Gastro-esophageal reflux disease without esophagitis; I25.10 Atherosclerotic heart disease of native coronary artery without angina pectoris; B35.3 Tinea pedis; R62.7 Adult failure to thrive; M62.50 Muscle wasting and atrophy, not elsewhere classified, unspecified site; K75.81 Nonalcoholic steatohepatitis (NASH); M19.90 Unspecified osteoarthritis, unspecified site; D73.1 Hypersplenism; H26.9 Unspecified cataract; E11.610 Type 2 diabetes mellitus with diabetic neuropathic arthropathy; E78.00 Pure hypercholesterolemia, unspecified; I95.9 Hypotension, unspecified; E66.9 Obesity, unspecified; Z68.32 Body mass index [BMI] 32.0-32.9, adult; Z90.49 Acquired absence of other specified parts of digestive tract; Z86.19 Personal history of other infectious and parasitic diseases; Z79.4 Long term (current) use of insulin; Z79.82 Long term (current) use of aspirin

== ENCOUNTER 2017-12-22 20:49 | Inpatient (IN) | payer OTHER, BC ==
[2017-12-22] MEDS ORDERED: Silver Sulfadiazine 1% Cream (25 gm) TP SCH (21:15)
[2017-12-22] MEDS: Insulin Detemir 100 units/ml Vial (Levemir) SC SCH (21:46)
[2017-12-23 00:25] VITALS: BMI 33.0
[2017-12-23] MEDS: Cefepime 1gm in NS 100ml 1 GM/100 ML BAG IVPB SCH ×2 (05:27→17:58)
[2017-12-23] MEDS: Pantoprazole 40 mg EC Tab PO SCH (05:28)
[2017-12-23] MEDS: Silver Sulfadiazine 1% Cream (25 gm) TP SCH ×2 (05:29→17:59)
[2017-12-23] MEDS: Insulin Detemir 100 units/ml Vial (Levemir) SC SCH ×2 (06:37→21:40)
[2017-12-23] MEDS: Insulin Lispro 1 UNITS/0.01 ML SC SCH (06:37)
--- NOTE | 2017-12-23 07:36 | CP.PCM.PN ---
Subjective - Date & Time of Evaluation Date of Evaluation: 12/23/17 Time of Evaluation: 07:34 - Subjective Subjective: Patient seen and examined at bedside. Patient denies any abdominal pain, fevers , chills, nausea, vomiting, changes in vision, headaches, chills, dizziness, or any other complaints. Objective - Vital Signs/Intake and Output Vital Signs (last 24 hours): Temp Pulse Resp BP Pulse Ox 98.1 F 72 18 113/46 L 12/23/17 00:08 12/23/17 00:08 12/23/17 00:08 12/23/17 00:08 - Medications Medications: Current Medications Allopurinol (Zyloprim) 300 mg PO QAM FISH PRN Reason: Protocol Aspirin (Aspirin Chewable) 81 mg PO 0800 FISH PRN Reason: Protocol Atorvastatin Calcium (Lipitor) 20 mg PO DIN FISH PRN Reason: Protocol Clotrimazole (Lotrimin Af 1%) 0 ml TOP BID FISH PRN Reason: Protocol Doxycycline Hyclate (Doryx) 100 mg PO Q12 FISH PRN Reason: Protocol Last Admin: 12/22/17 21:41 Dose: 100 mg Famotidine (Pepcid) 20 mg PO HS FISH PRN Reason: Protocol Last Admin: 12/22/17 21:42 Dose: 20 mg Furosemide (Lasix) 40 mg IVP DAILY FISH PRN Reason: Protocol Cefepime HCl (Maxipime 1gm) 1 gm in 100 mls @ 100 mls/hr IVPB 0600,1800 FISH PRN Reason: Protocol Last Admin: 12/23/17 05:27 Dose: 100 mls/hr Insulin Detemir (Levemir) 19 unit SC ACBHS FISH PRN Reason: Protocol Last Admin: 12/23/17 06:37 Dose: Not Given Insulin Human Lispro (Humalog) 10 units SC ACBD FISH PRN Reason: Protocol Last Admin: 12/23/17 06:37 Dose: Not Given Metoprolol Tartrate (Lopressor) 50 mg PO 0800,1800 FISH PRN Reason: Protocol Pantoprazole Sodium (Protonix Ec Tab) 40 mg PO 0600 FISH PRN Reason: Protocol Last Admin: 12/23/17 05:28 Dose: 40 mg Pyridoxine HCl (Vitamin B6 50 Mg Tab) 100 mg PO DAILY [facility] Silver Sulfadiazine (Silvadene 1% 25 Gm) 0 gm TP 0000,0600,1200,1800 FISH PRN Reason: Protocol Last Admin: 12/23/17 05:29 Dose: 1 gm - Head Exam Head Exam: ATRAUMATIC, NORMAL INSPECTION, NORMOCEPHALIC - Eye Exam Eye Exam: EOMI, Normal appearance - ENT Exam ENT Exam: Mucous Membranes Moist - Respiratory Exam Respiratory Exam: Clear to Ausculation Bilateral - Cardiovascular Exam Cardiovascular Exam: REGULAR RHYTHM - GI/Abdominal Exam GI & Abdominal Exam: Soft, Normal Bowel Sounds - Extremities Exam Extremities Exam: Full ROM - Neurological Exam Neurological Exam: Alert, Awake - Psychiatric Exam Psychiatric exam: Normal Affect, Normal Mood - Skin Skin Exam: Dry, Intact Additional comments: Bilateral lower extremity erythema and weeping. Bandages placed bilaterally. Assessment and Plan - Assessment and Plan (Free Text) Assessment: Pt. is a 72 y.o male admitted for bilateral lower extremity swelling. Plan: -Continue wound care. -Continue IV antibiotics -Daily wound dressing . Further management per wound care. -Pain management per medical team. Will discuss with Dr. Damico
[2017-12-23 07:44] LABS: BASO # 0.03 K/mm3 (0.0-2.0); BASO % 0.9 % (0.0-3.0); EOS # 0.2 (0.0-0.7); EOS % 5.7 % (1.5-5.0); GRAN # 1.91 (1.4-6.5); GRAN % 54.6 % (50.0-68.0); HEMOGLOBIN 9.4 g/dL (14.0-18.0); LYMPH % 27.4 % (22.0-35.0); MEAN CELL VOLUME 98.2 fl (80.0-105.0); MEAN CORPUSCULAR HEMOGLOBIN 33.1 pg (25.0-35.0); MEAN CORPUSCULAR HGB CONC 33.7 g/dl (31.0-37.0); MONO # 0.4 (0.1-0.6); MONO % 11.4 % (1.0-6.0); RBC 2.84 10^6/uL (3.5-6.1); RED CELL DISTRIBUTION WIDTH 14.3 % (11.5-14.5); WHITE BLOOD COUNT 3.5 10^3/ul (4.5-11.0)
[2017-12-23 08:01] LABS: ALB/GLOB RATIO 0.8 (1.1-1.8); ALBUMIN 2.7 g/dL (3.0-4.8); CALCIUM 9.1 mg/dL (8.4-10.5)
[2017-12-23] MEDS ORDERED: Clotrimazole 1% Top Soln(10 ml) TOP SCH (10:00)
--- NOTE | 2017-12-23 12:27 | CP.PCM.PN ---
Subjective - Date & Time of Evaluation Date of Evaluation: 12/23/17 Time of Evaluation: 08:00 - Subjective Subjective: PGY-[address] Swenson's service Patient seen and examined at bedside in TCU. No acute distress. Patient reports improved acid reflex this morning. He states that he feels feeling much better, pain in his legs has improved. He denies fever, chills, chest pain, sob, abd pain, n/v, diarrhea. Patient is tolerating diet, no decrease in appetite. Patient is advised that he will need MRI of his liver upon discharge from TCU. Objective - Vital Signs/Intake and Output Vital Signs (last 24 hours): Temp Pulse Resp BP Pulse Ox 98.1 F 72 18 103/56 L 12/23/17 00:08 12/23/17 00:08 12/23/17 00:08 12/23/17 09:44 - Medications Medications: Current Medications Allopurinol (Zyloprim) 300 mg PO QAM FISH PRN Reason: Protocol Last Admin: 12/23/17 09:39 Dose: 300 mg Aspirin (Aspirin Chewable) 81 mg PO 0800 FISH PRN Reason: Protocol Last Admin: 12/23/17 07:48 Dose: 81 mg Atorvastatin Calcium (Lipitor) 20 mg PO DIN FISH PRN Reason: Protocol Doxycycline Hyclate (Doryx) 100 mg PO Q12 FISH PRN Reason: Protocol Last Admin: 12/23/17 09:38 Dose: 100 mg Famotidine (Pepcid) 20 mg PO HS FISH PRN Reason: Protocol Last Admin: 12/22/17 21:42 Dose: 20 mg Furosemide (Lasix) 40 mg IVP DAILY FISH PRN Reason: Protocol Last Admin: 12/23/17 09:44 Dose: 40 mg Cefepime HCl (Maxipime 1gm) 1 gm in 100 mls @ 100 mls/hr IVPB 0600,1800 FISH PRN Reason: Protocol Last Admin: 12/23/17 05:27 Dose: 100 mls/hr Insulin Detemir (Levemir) 19 unit SC ACBHS FISH PRN Reason: Protocol Last Admin: 12/23/17 06:37 Dose: Not Given Insulin Human Lispro (Humalog) 10 units SC ACBD FISH PRN Reason: Protocol Last Admin: 12/23/17 06:37 Dose: Not Given Metoprolol Tartrate (Lopressor) 50 mg PO 0800,1800 [facility] PRN Reason: Protocol Last Admin: 12/23/17 07:49 Dose: Not Given Pantoprazole Sodium (Protonix Ec Tab) 40 mg PO 0600 [facility] PRN Reason: Protocol Last Admin: 12/23/17 05:28 Dose: 40 mg Pyridoxine HCl (Vitamin B6 50 Mg Tab) 100 mg PO DAILY [facility] Last Admin: 12/23/17 09:39 Dose: 100 mg Silver Sulfadiazine (Silvadene 1% 25 Gm) 0 gm TP DAILY [facility] PRN Reason: Protocol - Labs Labs: 12/23/17 07:20 12/23/17 07:20 - Constitutional Appears: No Acute Distress - Head Exam Head Exam: ATRAUMATIC, NORMOCEPHALIC - Eye Exam Eye Exam: EOMI, Normal appearance - ENT Exam ENT Exam: Mucous Membranes Moist - Respiratory Exam Respiratory Exam: Clear to Ausculation Bilateral, NORMAL BREATHING PATTERN. absent: Rhonchi, Wheezes, Respiratory Distress - Cardiovascular Exam Cardiovascular Exam: REGULAR RHYTHM, +S1, +S2. absent: Bradycardia, Tachycardia , Murmur - GI/Abdominal Exam GI & Abdominal Exam: Distended, Firm, Soft, Normal Bowel Sounds. absent: Tenderness - Extremities Exam Additional comments: bilateral dressing clean, dry and intact - Neurological Exam Neurological Exam: Alert, Awake, Oriented x3 - Skin Skin Exam: Dry, Intact, Normal Color, Warm Assessment and Plan - Assessment and Plan (Free Text) Assessment: 72 yo male with PMH of diabetes, MARTE cirrhosis, enlarged prostates, PVD, chronic stasis dermititis, htn, cad, hepatocellular carcinoma presented for increasing leg swelling and multiple sores. bilateral leg cellulitis diabetes HTN hyperlipidemia hepatocellular carcinoma cirrhosis with portal HTN anemia Plan: CT chest/abd/pelvis showed cirrhotic liver, splenomegaly, no suspicious hepatic masses, limited without contrast patient will need MRI of liver once discharged from TCU alpha feto protein and alpha feto protein L3 and DCT creatinine improved continue cefepime and doxy, antibiotics per ID surgery for wound care GI recommended outpatient colonscopy upon discharge from TCU, patient has history of colon surgery and family history of colon can case reviewed and discussed with Dr. Delgado
--- NOTE | 2017-12-23 19:18 | CP.PCM.CON ---
History of Present Illness - History of Present Illness History of Present Illness: 72 year old male with PMH of DM, obesity with BMI 32, S/P partial colectomy initially came in to [facility] complaining of bilateral lower extremity edema with weeping and has been on antibiotic treatment for cellulitis. He has been doing well and is now transferred to [facility] for continued medical therapy and physical rehab. Infectious Diseases consult is requested to continue his antibiotic management. Currently he is feeling better, less pain in the legs, no fever or chills, no nausea or vomiting, no chest pain, no SOB, no headache or dizziness, no abdominal pain, no cough or colds, no diarrhea, no dysuria. Review of Systems - Review of Systems All systems: reviewed and no additional remarkable complaints except (as per HPI ) Past Patient History - Tetanus Immunizations Tetanus Immunization: Unknown - Past Social History Smoking Status: Never Smoked - CARDIAC Hx Cardiac Disorders: Yes Hx Hypertension: Yes Hx Pacemaker: No - PULMONARY Hx Respiratory Disorders: No - NEUROLOGICAL Hx Paralysis: No - HEENT Hx HEENT Problems: No - RENAL Hx Chronic Kidney Disease: No - ENDOCRINE/METABOLIC Hx Diabetes Mellitus Type 2: Yes - HEMATOLOGICAL/ONCOLOGICAL Hx Blood Transfusions: Yes Hx Blood Transfusion Reaction: No - INTEGUMENTARY Hx Dermatological Problems: No - MUSCULOSKELETAL/RHEUMATOLOGICAL Hx Musculoskeletal Disorders: Yes - GASTROINTESTINAL Hx Gastrointestinal Disorders: No - GENITOURINARY/GYNECOLOGICAL Hx Genitourinary Disorders: No - PSYCHIATRIC Hx Emotional Abuse: No Hx Physical Abuse: No Hx Substance Use: No - SURGICAL HISTORY Other/Comment: partial colectomy 2002 - ANESTHESIA Hx Anesthesia: Yes Hx Anesthesia Reactions: No Hx Malignant Hyperthermia: No Meds Allergies/Adverse Reactions: Allergies Allergy/AdvReac Type Severity Reaction Status Date / Time No Known Allergies Allergy Verified 12/22/17 20:51 - Medications Medications: Current Medications Allopurinol (Zyloprim) 300 mg PO QAM FISH PRN Reason: Protocol Aspirin (Aspirin Chewable) 81 mg PO 0800 [facility] PRN Reason: Protocol Atorvastatin Calcium (Lipitor) 20 mg PO DIN FISH PRN Reason: Protocol Clotrimazole (Lotrimin Af 1%) 0 ml TOP BID FISH PRN Reason: Protocol Doxycycline Hyclate (Doryx) 100 mg PO Q12 FISH PRN Reason: Protocol Last Admin: 12/22/17 21:41 Dose: 100 mg Famotidine (Pepcid) 20 mg PO HS FISH PRN Reason: Protocol Last Admin: 12/22/17 21:42 Dose: 20 mg Furosemide (Lasix) 40 mg IVP DAILY FISH PRN Reason: Protocol Cefepime HCl (Maxipime 1gm) 1 gm in 100 mls @ 100 mls/hr IVPB 0600,1800 [facility] PRN Reason: Protocol Insulin Detemir (Levemir) 19 unit SC ACBHS FISH PRN Reason: Protocol Last Admin: 12/22/17 21:46 Dose: Not Given Insulin Human Lispro (Humalog) 10 units SC ACBD FISH PRN Reason: Protocol Metoprolol Tartrate (Lopressor) 50 mg PO 0800,1800 [facility] PRN Reason: Protocol Pantoprazole Sodium (Protonix Ec Tab) 40 mg PO 0600 FISH PRN Reason: Protocol Pyridoxine HCl (Vitamin B6 50 Mg Tab) 100 mg PO DAILY [facility] Silver Sulfadiazine (Silvadene 1% 25 Gm) 0 gm TP Q6H FISH PRN Reason: Protocol Physical Exam - Constitutional Appears: Chronically Ill - Head Exam Head Exam: NORMAL INSPECTION - Neck Exam Neck exam: Negative for: Meningismus - Respiratory Exam Respiratory Exam: Decreased Breath Sounds - Cardiovascular Exam Cardiovascular Exam: +S1, +S2 - GI/Abdominal Exam GI & Abdominal Exam: Soft. absent: Tenderness - Extremities Exam Additional comments: both legs with dressings in place Results - Labs Result Diagrams: 12/23/17 07:20 12/23/17 07:20 Labs: Laboratory Results - last 24 hr 12/22/17 21:46 POC Glucose (mg/dL) 134 H Assessment & Plan - Assessment and Plan (Free Text) Plan: Assessment Bilateral lower extremity skin and skin structure infection with blisters associated with lymphedema, with fungal infection in between toes DM obesity with BMI 32 S/P partial colectomy Plan continue Cefepime and Doxycycline day 5 to complete 7-10 days of therapy also started Clotrimazole for the toes will continue to monitor clinically
--- NOTE | 2017-12-24 00:09 | HP ---
DATE OF EXAM: HISTORY OF PRESENT ILLNESS: Patient is a 72 years old who was admitted because of an increasing leg swelling, difficulty walking, weeping ulcer. Patient was started on IV antibiotics, IV diuretics and started to improve, needed to complete the course of antibiotics, was transferred to TCU for rehab and completion of course of antibiotics. PAST MEDICAL HISTORY: He has significant past medical history for: 1. Insulin-dependent diabetes. 2. Hypertension. 3. Hyperlipidemia. 4. History of hepatocellular carcinoma. 5. Hyperlipidemia. 6. History of intra-arterial embolization of hepatocellular carcinoma of the liver. 7. History of cirrhosis of liver. 8. Chronic anemia. 9. Renal insufficiency. 10. Chronic bilateral leg cellulitis and stasis dermatitis. ALLERGIES: HE IS NOT ALLERGIC TO ANY MEDICATIONS. MEDICATION AT HOME: As per MAR includes aspirin, allopurinol, Zocor, pyridoxine, omeprazole, multivitamin, losartan, insulin, ferrous sulfate, and vitamin D. PHYSICAL EXAMINATION: GENERAL: Patient is awake, alert, oriented, ambulatory. VITAL SIGNS: Afebrile, pulse 72, respirations 18, blood pressure 103/56. LUNGS: Bilateral fair airflow. No rhonchi or crackles. HEART: S1 and S2 audible. ABDOMEN: Soft, obese, nontender, no rebound, no guarding. NEUROLOGIC: Patient is awake and alert, able to communicate, ambulatory. EXTREMITIES: Bilateral legs, chronic stasis dermatitis seen in both legs and erythema seems to be improving, swelling has reduced. LABORATORY DATA: WBC is 3.5, hemoglobin 9.4, hematocrit 27.9, platelet of 69. Chemistry: Sodium 141, potassium 4.4, chloride 110, CO2 of 23, BUN 46, creatinine 1.5, blood sugar 125. ASSESSMENT: 1. Bilateral chronic stasis dermatitis. 2. Bilateral leg cellulitis. 3. Insulin-dependent diabetes. 4. History of hepatocellular carcinoma. 5. Renal insufficiency. 6. Chronic anemia. PLAN: We will continue the patient on Maxipime, doxycycline. He is getting IV Protonix, IV Lasix. He is off of fluid and monitor blood sugar. We will follow up the patient. Pierre Holt MD [facility] # [id number]
[2017-12-24] MEDS: Cefepime 1gm in NS 100ml 1 GM/100 ML BAG IVPB SCH ×2 (05:40→17:49)
[2017-12-24] MEDS: Pantoprazole 40 mg EC Tab PO SCH (05:41)
[2017-12-24] MEDS: Insulin Lispro 1 UNITS/0.01 ML SC SCH ×2 (06:36→17:46)
[2017-12-24] MEDS: Insulin Detemir 100 units/ml Vial (Levemir) SC SCH ×2 (06:37→21:39)
[2017-12-24 07:30] LABS: BASO # 0.04 K/mm3 (0.0-2.0); BASO % 1.1 % (0.0-3.0); EOS # 0.3 (0.0-0.7); EOS % 6.7 % (1.5-5.0); GRAN # 2.05 (1.4-6.5); GRAN % 54.7 % (50.0-68.0); HEMOGLOBIN 9.8 g/dL (14.0-18.0); LYMPH # 1.1 (1.2-3.4); LYMPH % 29.7 % (22.0-35.0); MEAN CELL VOLUME 98.3 fl (80.0-105.0); MEAN CORPUSCULAR HGB CONC 33.6 g/dl (31.0-37.0); MEAN PLATELET VOLUME 10.7 fl (7.0-11.0); MONO # 0.3 (0.1-0.6); MONO % 7.8 % (1.0-6.0); RBC 2.97 10^6/uL (3.5-6.1); RED CELL DISTRIBUTION WIDTH 14.5 % (11.5-14.5); WHITE BLOOD COUNT 3.7 10^3/ul (4.5-11.0)
[2017-12-24 07:41] LABS: ALB/GLOB RATIO 0.8 (1.1-1.8); ALBUMIN 2.9 g/dL (3.0-4.8); CALCIUM 9.2 mg/dL (8.4-10.5)
[2017-12-24] MEDS: Silver Sulfadiazine 1% Cream (25 gm) TP SCH (09:57)
[2017-12-24] MEDS: Clotrimazole/Betamethasone Lotion(30 ml) TOP SCH (17:48)
--- NOTE | 2017-12-24 19:48 | PN ---
DATE: SUBJECTIVE: The patient is 72 years old, seen and examined, doing well. Stating felt nauseous after breakfast today, otherwise doing well. OBJECTIVE: VITAL SIGNS: He is afebrile, pulse 88, respirations 18, blood pressure 126/64. LUNGS: Bilateral good airflow. No rhonchi or crackle. HEART: S1 and S2 audible. ABDOMEN: Soft, nontender. No rebound. No guarding. NEUROLOGIC: Patient is awake, alert, oriented, communicative, ambulatory. EXTREMITIES: Bilateral legs, he has chronic stasis dermatitis and both legs are wrapped. LABORATORY EXAM: WBC is 3.7, hemoglobin 9.8, hematocrit 29.2, platelets of 93. Chemistry: Sodium 140, potassium 4.8, chloride 109, CO2 of 23. BUN 48, creatinine 1.8. Blood sugar of 102. LFTs are within normal limits. ASSESSMENT: 1. Bilateral leg cellulitis. 2. Bilateral chronic stasis dermatitis. 3. Insulin-dependent diabetes. 4. Chronic kidney disease. 5. Prerenal azotemia secondary to diuretics. 6. Gastritis. PLAN: Currently, the patient is on doxycycline and cefepime, we will continue that. Monitor blood sugar, local wound care, and continue physical therapy. Pierre Holt MD
--- NOTE | 2017-12-24 21:15 | PN ---
DATE: 12/24/2017 ONCOLOGY PROGRESS NOTE LOCATION: Patient is in room 327, bed 1. SUBJECTIVE: Patient is a 72-year-old male who is being followed by us for sequestration thrombocytopenia and diagnosis of hepatocellular carcinoma, status post RF ablation x2, followed by intra-arterial Adriamycin-based chemotherapy via the intra-arterial route with significant improvement in the lesions. Last MRI done in 10/2017 had shown significant improvement without any progression on new disease. Was admitted because of worsening and increasing leg pain with weeping of both legs associated with edema, leg ulcers related to chronic varicosities and secondary infection. Patient after admission has been feeling better after getting IV antibiotics, topical Silvadene cream, and is being followed very vigorously by the surgical and wound care team. Patient is now transferred to the TCU for further management. Patient still needs an MRI and endoscopy upon completion of the TRCU stay. PAST MEDICAL HISTORY: Significant for diabetes, hypertension, hyperlipidemia, hepatocellular carcinoma. History of intra-arterial embolization, history of radiofrequency ablation, cirrhosis of the liver, sequestration thrombocytopenia, chronic varicosities and bilateral leg cellulitis, currently with weeping secondary to the varicosities and stasis dermatitis, improving gradually. PHYSICAL EXAMINATION: GENERAL: Patient is seen in bed. His niece is by his bedside. HEENT: Head is normocephalic, atraumatic. Conjunctivae pale. Sclerae are anicteric. Examination of the oropharynx reveals no oropharyngeal lesions. LUNGS: Clear. HEART: Reveals S1 and S2 to be normal. No gallop or murmur is heard. ABDOMEN: Soft, obese, nontender. Patient has a periumbilical hernia. NEUROLOGIC: Patient is awake, alert, and oriented. EXTREMITIES: Patient's both lower extremities are in dressing for the chronic stasis dermatitis, second also chronic varicosities associated with stasis dermatitis. PLAN: Detailed discussion with the patient today; we will let him continue the antibiotics, both IV and topical treatments. Continue with physical therapy and once the patient is being planned to be discharged home, we will setup for outpatient MRI with and without gadolinium to ascertain how . Blood work including alpha fetoprotein, DCP, and AFP-L3 have been requested. We will continue to monitor his platelet count, which has been stabilized between 98 and 140,000. Routine post-exam instructions have been given to the patient. Patient will also need an upper endoscopy, which may have to be coordinated to make sure no gastrointestinal pathology in the upper abdomen as there is a strong family history of duodenal cancer as well. Time spent with the patient is about 40 minutes. Catarino Swenson MD
--- NOTE | 2017-12-24 22:46 | PN ---
DATE: 12/24/2017 SUBJECTIVE: The patient is in bed, in no acute distress. The patient was seen early this morning. Doing well. PHYSICAL EXAMINATION: VITAL SIGNS: Temperature is 98, blood pressure is 103/60, respiratory rate of 18. HEENT: Unremarkable. NECK: Supple. LUNGS: Have decreased breath sounds. HEART: Normal S1 and S2. ABDOMEN: Soft, nontender. LABORATORY DATA: Reveals a white count of 3.7. Chemistries are noted, creatinine is 1.8. Urinalysis is noted. Currently the patient is on p.o. doxycycline and IV cefepime. ASSESSMENT AND PLAN: This is a 72-year-old male with bilateral lower extremity skin and soft tissue infection with associated lymphedema with a fungal infection between the toes and diabetic, on cefepime and doxycycline, today is day #6, we will complete 7 to 10 days of therapy with clotrimazole between the toes. Jerman Weinberg MD
[2017-12-25] MEDS: Cefepime 1gm in NS 100ml 1 GM/100 ML BAG IVPB SCH ×2 (05:07→17:29)
[2017-12-25] MEDS: Pantoprazole 40 mg EC Tab PO SCH (05:07)
[2017-12-25 07:13] LABS: BASO # 0.02 K/mm3 (0.0-2.0); BASO % 0.7 % (0.0-3.0); EOS # 0.2 (0.0-0.7); GRAN # 1.43 (1.4-6.5); HEMOGLOBIN 8.9 g/dL (14.0-18.0); LYMPH # 1.1 (1.2-3.4); LYMPH % 36.6 % (22.0-35.0); MEAN CELL VOLUME 97.7 fl (80.0-105.0); MEAN CORPUSCULAR HEMOGLOBIN 33.6 pg (25.0-35.0); MEAN CORPUSCULAR HGB CONC 34.4 g/dl (31.0-37.0); MEAN PLATELET VOLUME 10.2 fl (7.0-11.0); MONO # 0.3 (0.1-0.6); MONO % 8.7 % (1.0-6.0); RBC 2.65 10^6/uL (3.5-6.1); RED CELL DISTRIBUTION WIDTH 14.4 % (11.5-14.5)
[2017-12-25] MEDS: Insulin Lispro 1 UNITS/0.01 ML SC SCH ×2 (07:24→17:23)
[2017-12-25] MEDS: Insulin Detemir 100 units/ml Vial (Levemir) SC SCH ×2 (07:36→22:00)
[2017-12-25 07:40] LABS: ALB/GLOB RATIO 0.7 (1.1-1.8); ALBUMIN 2.6 g/dL (3.0-4.8); CALCIUM 9.1 mg/dL (8.4-10.5)
[2017-12-25] MEDS: Clotrimazole/Betamethasone Lotion(30 ml) TOP SCH ×2 (09:32→17:28)
[2017-12-25] MEDS: Silver Sulfadiazine 1% Cream (25 gm) TP SCH (11:56)
--- NOTE | 2017-12-25 18:20 | CP.PCM.PN ---
Subjective - Date & Time of Evaluation Date of Evaluation: 12/25/17 Time of Evaluation: 18:20 - Subjective Subjective: Podiatry Progress Note - Drs. Pruitt/aNcho 72M seen and evaluated at bedside for bilateral lower extremity cellulitis with accompanying edema. Patient resting comfortably, NADUrsula GARLAND. Reports minimal pain to right leg wound. Dressings clean/dry/intact with no strikethrough noted. No other complaints. Denies N/V/F/D/C/SOB. Objective - Vital Signs/Intake and Output Vital Signs (last 24 hours): Temp Pulse Resp BP Pulse Ox 98.1 F 71 21 114/50 L 98 12/25/17 16:00 12/25/17 17:27 12/25/17 16:00 12/25/17 17:27 12/25/17 16:00 - Medications Medications: Current Medications Allopurinol (Zyloprim) 300 mg PO QAM FISH PRN Reason: Protocol Last Admin: 12/25/17 09:33 Dose: 300 mg Aspirin (Aspirin Chewable) 81 mg PO 0800 FISH PRN Reason: Protocol Last Admin: 12/25/17 08:59 Dose: 81 mg Atorvastatin Calcium (Lipitor) 20 mg PO DIN FISH PRN Reason: Protocol Last Admin: 12/25/17 17:27 Dose: 20 mg Betamethasone/Clotrimazole (Lotrisone) 0 ml TOP BID FISH Last Admin: 12/25/17 17:28 Dose: 1 applic Doxycycline Hyclate (Doryx) 100 mg PO Q12 FISH PRN Reason: Protocol Last Admin: 12/25/17 09:31 Dose: 100 mg Famotidine (Pepcid) 20 mg PO HS FISH PRN Reason: Protocol Last Admin: 12/24/17 21:23 Dose: 20 mg Furosemide (Lasix) 40 mg IVP DAILY FISH PRN Reason: Protocol Last Admin: 12/25/17 10:51 Dose: Not Given Cefepime HCl (Maxipime 1gm) 1 gm in 100 mls @ 100 mls/hr IVPB 0600,1800 FISH PRN Reason: Protocol Last Admin: 12/25/17 17:29 Dose: 100 mls/hr Insulin Detemir (Levemir) 19 unit SC ACBHS FISH PRN Reason: Protocol Last Admin: 12/25/17 07:36 Dose: Not Given Insulin Human Lispro (Humalog) 10 units SC ACBD FISH PRN Reason: Protocol Last Admin: 12/25/17 17:23 Dose: 10 units Metoprolol Tartrate (Lopressor) 50 mg PO 0800,1800 [facility] PRN Reason: Protocol Last Admin: 12/25/17 17:27 Dose: Not Given Ondansetron HCl (Zofran Tab) 4 mg PO Q6 PRN PRN Reason: Nausea/Vomiting Last Admin: 12/24/17 12:36 Dose: 4 mg Pantoprazole Sodium (Protonix Ec Tab) 40 mg PO 0600 [facility] PRN Reason: Protocol Last Admin: 12/25/17 05:07 Dose: 40 mg Pyridoxine HCl (Vitamin B6 50 Mg Tab) 100 mg PO DAILY [facility] Last Admin: 12/25/17 09:33 Dose: 100 mg Silver Sulfadiazine (Silvadene 1% 25 Gm) 0 gm TP DAILY [facility] PRN Reason: Protocol Last Admin: 12/25/17 11:56 Dose: Not Given - Labs Labs: 12/25/17 06:30 12/25/17 06:30 - Constitutional Appears: Well, Non-toxic, No Acute Distress - Extremities Exam Additional comments: VASC: DP and PT pulses nonpalpable. +2 pitting edema b/l. CFT delayed x10. Temperature gradient cool to cool. NEURO: Gross sensation diminished bilaterally. DERM: Superficial ulceration noted to lateral right lower leg with minimal drainage present; no purulence; no fluctuance; no malodor; no probe to bone; overlying xerosis. Left lower leg presents with severe xerosis however no open lesions noted. Bilateral venous stasis dermatitis. ORTHO: No pain on palpation to bilateral lower extremity. - Psychiatric Exam Psychiatric exam: Normal Affect, Normal Mood Assessment and Plan - Assessment and Plan (Free Text) Assessment: 72M with venous stasis ulceration RLE and resolving bilateral cellulitis Plan: Patient seen and evaluated Discussed with attending, Dr. Pruitt Afebrile, WBC 3.0 Continue local wound care - RLE silvadene to wound, Lotrisone to rest of LE, xeroform, DSD; LLE Lotrisone, xeroform, DSD; SAMUEL wraps bilaterally Continue elevation of legs while in bed Podiatry will continue to follow
--- NOTE | 2017-12-25 23:00 | PN ---
DATE: 12/25/2017 SUBJECTIVE: The patient seen earlier this morning in room 327. Patient is in no acute distress, nontoxic. No fevers and no chills. OBJECTIVE: VITAL SIGNS: On exam, temperature is 98, blood pressure is 120/70, respiratory rate of 16. HEENT: Examination of HEENT is unremarkable. NECK: Supple. LUNGS: Have decreased breath sounds. HEART: Normal S1, S2. ABDOMEN: Soft, nontender. LABORATORY DATA: Reveals a white count of 3, hemoglobin 8.9, platelets of 72. BUN of 45, creatinine of 1.7. Other labs were reviewed. ASSESSMENT AND PLAN: A 72-year-old male with bilateral lower extremity skin and skin soft tissue infection, was found to have lymphedema, fungal infection between the toes, currently on cefepime and doxycycline day #7, would complete 7-10 days of antibiotics. We will follow with you. Jerman Weinberg MD
--- NOTE | 2017-12-25 23:35 | PN ---
DATE: 12/25/2017 SUBJECTIVE: Comfortable in bed, in no acute distress. Denies any complaints. No nausea. No vomiting. Bilateral lower extremity cellulitis improved. He is ambulating with physical therapy. REVIEW OF SYSTEMS: As per HPI. Rest of 12-point review of systems reviewed and negative. PHYSICAL EXAMINATION: GENERAL: Comfortable in bed, in no acute distress. VITAL SIGNS: Temperature 97.8, heart rate 80 per minute, respiratory rate 15 per minute, blood pressure 126/ . HEENT: Normal. NECK: No lymphadenopathy. CHEST: Air entry present and equal bilateral. No added sounds. NEURO: Awake, alert, oriented, communicative. No focal sensorimotor deficit. EXTREMITIES: Bilateral lower leg cellulitis improved. Stasis dermatitis present bilateral lower extremities and in dressings. LABORATORY DATA: White count 3.7, hemoglobin 9.8, hematocrit 29.2, and platelets of 93. Sodium 140, potassium 4.8, BUN 48, and creatinine 1.8. MEDICATIONS: Reviewed. ASSESSMENT: 1. Bilateral cellulitis. 2. Diabetes mellitus, type 2. 3. Chronic kidney disease. 4. Prerenal azotemia. 5. Gastritis. 6. Hepatocellular carcinoma. PLAN: He is currently on doxycycline and cefepime. We will continue that. Wound care ongoing. Continue physical therapy. Aspirin 81 mg daily. Continue IV antibiotics as per ID. Currently on insulin Levemir sliding scale, metoprolol 50 mg daily to continue, silver sulfadiazine local application. He is on also pyridoxine 100 mg daily. Condition is stable. Caron Edge MD
[2017-12-26] MEDS: Cefepime 1gm in NS 100ml 1 GM/100 ML BAG IVPB SCH ×2 (05:19→17:23)
[2017-12-26] MEDS: Pantoprazole 40 mg EC Tab PO SCH (05:21)
[2017-12-26] MEDS: Insulin Detemir 100 units/ml Vial (Levemir) SC SCH ×2 (06:45→21:29)
[2017-12-26] MEDS: Insulin Lispro 1 UNITS/0.01 ML SC SCH ×2 (06:45→16:55)
[2017-12-26 07:18] LABS: BASO # 0.04 K/mm3 (0.0-2.0); BASO % 1.3 % (0.0-3.0); EOS # 0.2 (0.0-0.7); EOS % 5.9 % (1.5-5.0); GRAN # 1.46 (1.4-6.5); GRAN % 47.5 % (50.0-68.0); LYMPH # 1.1 (1.2-3.4); LYMPH % 35.2 % (22.0-35.0); MEAN CELL VOLUME 98.5 fl (80.0-105.0); MEAN CORPUSCULAR HEMOGLOBIN 33.5 pg (25.0-35.0); MEAN PLATELET VOLUME 10.7 fl (7.0-11.0); MONO # 0.3 (0.1-0.6); MONO % 10.1 % (1.0-6.0); RBC 2.69 10^6/uL (3.5-6.1); RED CELL DISTRIBUTION WIDTH 14.7 % (11.5-14.5); WHITE BLOOD COUNT 3.1 10^3/ul (4.5-11.0)
[2017-12-26 07:42] LABS: ALB/GLOB RATIO 0.8 (1.1-1.8); ALBUMIN 2.6 g/dL (3.0-4.8); CALCIUM 9.1 mg/dL (8.4-10.5)
[2017-12-26] MEDS: Silver Sulfadiazine 1% Cream (25 gm) TP SCH (10:23)
[2017-12-26] MEDS: Clotrimazole/Betamethasone Lotion(30 ml) TOP SCH ×2 (10:46→17:24)
--- NOTE | 2017-12-26 11:03 | CP.PCM.PN ---
Subjective - Date & Time of Evaluation Date of Evaluation: 12/26/17 Time of Evaluation: 09:00 - Subjective Subjective: PGY-[address] Swenson's service Patient seen and examined at bedside in TCU. No acute distress. Patient states that he is feeling good. He is participating in PT and his legs feel better. He denies fever, chills, chest pain, sob, abd pain, n/v, diarrhea. Patient is tolerating diet, no decrease in appetite. Patient is advised that he will need MRI of his liver upon discharge from TCU. Objective - Vital Signs/Intake and Output Vital Signs (last 24 hours): Temp Pulse Resp BP Pulse Ox 98.1 F 79 21 112/58 L 98 12/25/17 16:00 12/26/17 08:17 12/25/17 16:00 12/26/17 08:17 12/25/17 16:00 - Medications Medications: Current Medications Allopurinol (Zyloprim) 300 mg PO QAM FISH PRN Reason: Protocol Last Admin: 12/26/17 10:47 Dose: 300 mg Aspirin (Aspirin Chewable) 81 mg PO 0800 FISH PRN Reason: Protocol Last Admin: 12/26/17 08:18 Dose: 81 mg Atorvastatin Calcium (Lipitor) 20 mg PO DIN FISH PRN Reason: Protocol Last Admin: 12/25/17 17:27 Dose: 20 mg Betamethasone/Clotrimazole (Lotrisone) 0 ml TOP BID FISH Last Admin: 12/26/17 10:46 Dose: 1 applic Doxycycline Hyclate (Doryx) 100 mg PO Q12 FISH PRN Reason: Protocol Last Admin: 12/26/17 10:45 Dose: 100 mg Famotidine (Pepcid) 20 mg PO HS FISH PRN Reason: Protocol Last Admin: 12/25/17 21:29 Dose: 20 mg Furosemide (Lasix) 40 mg IVP DAILY FISH PRN Reason: Protocol Last Admin: 12/25/17 10:51 Dose: Not Given Cefepime HCl (Maxipime 1gm) 1 gm in 100 mls @ 100 mls/hr IVPB 0600,1800 FISH PRN Reason: Protocol Last Admin: 12/26/17 05:19 Dose: 100 mls/hr Insulin Detemir (Levemir) 19 unit SC ACBHS FISH PRN Reason: Protocol Last Admin: 12/26/17 06:45 Dose: Not Given Insulin Human Lispro (Humalog) 10 units SC ACBD FISH PRN Reason: Protocol Last Admin: 12/26/17 06:45 Dose: Not Given Metoprolol Tartrate (Lopressor) 50 mg PO 0800,1800 FISH PRN Reason: Protocol Last Admin: 12/26/17 08:17 Dose: Not Given Ondansetron HCl (Zofran Tab) 4 mg PO Q6 PRN PRN Reason: Nausea/Vomiting Last Admin: 12/24/17 12:36 Dose: 4 mg Pantoprazole Sodium (Protonix Ec Tab) 40 mg PO 0600 [facility] PRN Reason: Protocol Last Admin: 12/26/17 05:21 Dose: 40 mg Pyridoxine HCl (Vitamin B6 50 Mg Tab) 100 mg PO DAILY [facility] Last Admin: 12/26/17 10:47 Dose: 100 mg Silver Sulfadiazine (Silvadene 1% 25 Gm) 0 gm TP DAILY [facility] PRN Reason: Protocol Last Admin: 12/26/17 10:23 Dose: Not Given - Labs Labs: 12/26/17 06:45 12/26/17 06:45 - Constitutional Appears: Well, No Acute Distress - Head Exam Head Exam: ATRAUMATIC, NORMOCEPHALIC - Eye Exam Eye Exam: EOMI, Normal appearance - ENT Exam ENT Exam: Mucous Membranes Moist - Respiratory Exam Respiratory Exam: Clear to Ausculation Bilateral, NORMAL BREATHING PATTERN. absent: Decreased Breath Sounds, Rales, Rhonchi, Wheezes, Respiratory Distress - Cardiovascular Exam Cardiovascular Exam: REGULAR RHYTHM, +S1, +S2. absent: Bradycardia, Tachycardia , Murmur - GI/Abdominal Exam GI & Abdominal Exam: Soft, Normal Bowel Sounds. absent: Distended, Firm, Tenderness - Neurological Exam Neurological Exam: Alert, Awake, Oriented x3 - Psychiatric Exam Psychiatric exam: Normal Affect, Normal Mood - Skin Skin Exam: Dry, Intact, Normal Color, Warm Assessment and Plan - Assessment and Plan (Free Text) Assessment: 72 yo male with PMH of diabetes, MARTE cirrhosis, enlarged prostates, PVD, chronic stasis dermititis, htn, cad, hepatocellular carcinoma presented for increasing leg swelling and multiple sores. bilateral leg cellulitis diabetes HTN hyperlipidemia hepatocellular carcinoma cirrhosis with portal HTN anemia Plan: CT chest/abd/pelvis showed cirrhotic liver, splenomegaly, no suspicious hepatic masses, limited without contrast patient will need MRI of liver once discharged from TCU alpha feto protein and alpha feto protein L3 and DCP continue cefepime and doxy Day 8, antibiotics per ID surgery for wound care GI recommended outpatient colonscopy upon discharge from TCU, patient has history of colon surgery and family history of colon can case reviewed and discussed with Dr. Delgado
--- NOTE | 2017-12-26 13:01 | PN ---
DATE: SUBJECTIVE: The patient is 72 years old, seen and examined, lying in bed. Seems to be comfortable. Denies any nausea or vomiting. No diarrhea. PHYSICAL EXAMINATION: VITAL SIGNS: The patient is afebrile, pulse 79, respirations 21, blood pressure 112/58. LUNGS: Bilateral fair airflow. No rhonchi or crackle. HEART: S1 and S2 audible. ABDOMEN: Soft. Nontender. No rebound. No guarding. NEUROLOGIC: The patient is awake, alert, oriented, ambulatory. EXTREMITIES: Bilateral leg, +1 edema. Erythema is significantly improving. LABORATORY EXAM: WBC 3.1, hemoglobin 9, hematocrit 26.5, platelets of 80. Chemistry: Sodium 143, potassium 4.8, chloride 113, CO2 of 24, BUN 42, creatinine 1.7, blood sugar of 142. ASSESSMENT: 1. Bilateral leg cellulitis. 2. Chronic stasis dermatitis, acute on chronic. 3. History of insulin-dependent diabetes. 4. Hypertension. 5. Hyperlipidemia. 6. History of hepatocellular carcinoma, status post transarterial embolization. 7. Cirrhosis of liver. 8. Thrombocytopenia. PLAN: The patient is getting wound care. He is on doxycycline and Maxipime. We will continue wound care. Monitor blood sugar. Encourage ambulation. We will follow up in the a.m. Pierre Holt MD
--- NOTE | 2017-12-26 18:36 | CP.PCM.PN ---
Subjective - Date & Time of Evaluation Date of Evaluation: 12/26/17 Time of Evaluation: 11:30 - Subjective Subjective: No fevers, no diarrhea, feeling better. Objective - Vital Signs/Intake and Output Vital Signs (last 24 hours): Temp Pulse Resp BP Pulse Ox 98.2 F 101 H 18 120/69 100 12/26/17 17:40 12/26/17 17:40 12/26/17 17:40 12/26/17 17:40 12/26/17 17:40 - Medications Medications: Current Medications Allopurinol (Zyloprim) 300 mg PO QAM FISH PRN Reason: Protocol Last Admin: 12/26/17 10:47 Dose: 300 mg Aspirin (Aspirin Chewable) 81 mg PO 0800 FISH PRN Reason: Protocol Last Admin: 12/26/17 08:18 Dose: 81 mg Atorvastatin Calcium (Lipitor) 20 mg PO DIN FISH PRN Reason: Protocol Last Admin: 12/26/17 17:24 Dose: 20 mg Betamethasone/Clotrimazole (Lotrisone) 0 ml TOP BID FISH Last Admin: 12/26/17 17:24 Dose: 1 applic Doxycycline Hyclate (Doryx) 100 mg PO Q12 FISH PRN Reason: Protocol Last Admin: 12/26/17 10:45 Dose: 100 mg Famotidine (Pepcid) 20 mg PO HS FISH PRN Reason: Protocol Last Admin: 12/25/17 21:29 Dose: 20 mg Furosemide (Lasix) 40 mg IVP DAILY FISH PRN Reason: Protocol Last Admin: 12/26/17 14:24 Dose: 40 mg Cefepime HCl (Maxipime 1gm) 1 gm in 100 mls @ 100 mls/hr IVPB 0600,1800 FISH PRN Reason: Protocol Last Admin: 12/26/17 17:23 Dose: 100 mls/hr Insulin Detemir (Levemir) 19 unit SC ACBHS FISH PRN Reason: Protocol Last Admin: 12/26/17 06:45 Dose: Not Given Insulin Human Lispro (Humalog) 10 units SC ACBD FISH PRN Reason: Protocol Last Admin: 12/26/17 16:55 Dose: Not Given Metoprolol Tartrate (Lopressor) 50 mg PO 0800,1800 FISH PRN Reason: Protocol Last Admin: 12/26/17 17:00 Dose: Not Given Ondansetron HCl (Zofran Tab) 4 mg PO Q6 PRN PRN Reason: Nausea/Vomiting Last Admin: 12/24/17 12:36 Dose: 4 mg Pantoprazole Sodium (Protonix Ec Tab) 40 mg PO 0600 FISH PRN Reason: Protocol Last Admin: 12/26/17 05:21 Dose: 40 mg Pyridoxine HCl (Vitamin B6 50 Mg Tab) 100 mg PO DAILY [facility] Last Admin: 12/26/17 10:47 Dose: 100 mg Silver Sulfadiazine (Silvadene 1% 25 Gm) 0 gm TP DAILY FISH PRN Reason: Protocol Last Admin: 12/26/17 10:23 Dose: Not Given - Labs Labs: 12/26/17 06:45 12/26/17 06:45 - Constitutional Appears: Chronically Ill - Head Exam Head Exam: NORMAL INSPECTION - Respiratory Exam Respiratory Exam: Decreased Breath Sounds - Cardiovascular Exam Cardiovascular Exam: +S1, +S2 - GI/Abdominal Exam GI & Abdominal Exam: Soft. absent: Tenderness - Extremities Exam Additional comments: both legs with dressings in place Assessment and Plan - Assessment and Plan (Free Text) Plan: Assessment Bilateral lower extremity skin and skin structure infection with blisters associated with lymphedema, with fungal infection in between toes DM obesity with BMI 32 S/P partial colectomy Plan continue Cefepime and Doxycycline day 8 to complete up to 10 days of therapy continue Clotrimazole for the toes will continue to monitor clinically
[2017-12-27] MEDS: Pantoprazole 40 mg EC Tab PO SCH (05:23)
[2017-12-27] MEDS: Cefepime 1gm in NS 100ml 1 GM/100 ML BAG IVPB SCH ×2 (05:23→17:30)
[2017-12-27] MEDS: Insulin Lispro 1 UNITS/0.01 ML SC SCH ×2 (06:32→17:28)
[2017-12-27] MEDS: Insulin Detemir 100 units/ml Vial (Levemir) SC SCH ×2 (06:33→21:54)
[2017-12-27 07:06] LABS: BASO # 0.02 K/mm3 (0.0-2.0); BASO % 0.7 % (0.0-3.0); EOS # 0.1 (0.0-0.7); EOS % 5.2 % (1.5-5.0); GRAN # 1.46 (1.4-6.5); GRAN % 53.9 % (50.0-68.0); HEMOGLOBIN 9.2 g/dL (14.0-18.0); LYMPH # 0.7 (1.2-3.4); LYMPH % 27.3 % (22.0-35.0); MEAN CELL VOLUME 98.2 fl (80.0-105.0); MEAN CORPUSCULAR HGB CONC 33.6 g/dl (31.0-37.0); MEAN PLATELET VOLUME 10.6 fl (7.0-11.0); MONO # 0.4 (0.1-0.6); MONO % 12.9 % (1.0-6.0); RBC 2.79 10^6/uL (3.5-6.1); RED CELL DISTRIBUTION WIDTH 14.6 % (11.5-14.5)
[2017-12-27 07:13] LABS: ALB/GLOB RATIO 0.8 (1.1-1.8); ALBUMIN 2.7 g/dL (3.0-4.8); ALT/SGPT 36 U/L (7-56); AST/SGOT 57 U/L (17-59); BLOOD UREA NITROGEN 38 mg/dL (7-21); CALCIUM 9.1 mg/dL (8.4-10.5); GFR AFRICAN-AMERICAN > 60; GFR NON-AFRICAN AMERICAN 50
[2017-12-27 07:30] LABS: WHITE BLOOD COUNT 2.7 10^3/ul (4.5-11.0)
[2017-12-27] MEDS: Clotrimazole/Betamethasone Lotion(30 ml) TOP SCH ×2 (09:37→17:30)
[2017-12-27] MEDS: Silver Sulfadiazine 1% Cream (25 gm) TP SCH (12:33)
--- NOTE | 2017-12-27 18:15 | CP.PCM.PN ---
<NixonPaulinadivinasumaya - Last Filed: 12/27/17 18:11> Subjective - Date & Time of Evaluation Date of Evaluation: 12/27/17 Time of Evaluation: 18:11 - Subjective Subjective: Podiatry Progress Note - Drs. Pruitt/Nacho 72M seen and evaluated at bedside for bilateral lower extremity cellulitis with accompanying edema. Patient resting comfortably, NAD. Denies of no acute overnight events. Reports minimal pain to right leg wound. Dressings clean/dry/ intact with no strikethrough noted. No other complaints. Denies N/V/F/D/C/SOB. No new pedal complains. Objective - Vital Signs/Intake and Output Vital Signs (last 24 hours): Temp Pulse Resp BP Pulse Ox 98.2 F 72 18 102/59 L 96 12/26/17 17:40 12/27/17 17:34 12/26/17 17:40 12/27/17 17:34 12/27/17 17:07 - Medications Medications: Current Medications Allopurinol (Zyloprim) 300 mg PO QAM FISH PRN Reason: Protocol Last Admin: 12/27/17 09:38 Dose: 300 mg Aspirin (Aspirin Chewable) 81 mg PO 0800 FISH PRN Reason: Protocol Last Admin: 12/27/17 08:54 Dose: 81 mg Atorvastatin Calcium (Lipitor) 20 mg PO DIN FISH PRN Reason: Protocol Last Admin: 12/27/17 17:29 Dose: 20 mg Betamethasone/Clotrimazole (Lotrisone) 0 ml TOP BID FISH Last Admin: 12/27/17 17:30 Dose: 1 applic Doxycycline Hyclate (Doryx) 100 mg PO Q12 FISH PRN Reason: Protocol Last Admin: 12/27/17 09:35 Dose: 100 mg Famotidine (Pepcid) 20 mg PO HS FISH PRN Reason: Protocol Last Admin: 12/26/17 21:18 Dose: 20 mg Furosemide (Lasix) 40 mg IVP DAILY FISH PRN Reason: Protocol Last Admin: 12/27/17 09:37 Dose: 40 mg Cefepime HCl (Maxipime 1gm) 1 gm in 100 mls @ 100 mls/hr IVPB 0600,1800 FISH PRN Reason: Protocol Last Admin: 12/27/17 17:30 Dose: 100 mls/hr Insulin Detemir (Levemir) 19 unit SC ACBHS FISH PRN Reason: Protocol Last Admin: 12/27/17 06:33 Dose: Not Given Insulin Human Lispro (Humalog) 10 units SC ACBD FISH PRN Reason: Protocol Last Admin: 12/27/17 17:28 Dose: Not Given Metoprolol Tartrate (Lopressor) 50 mg PO 0800,1800 FISH PRN Reason: Protocol Last Admin: 12/27/17 17:34 Dose: 50 mg Ondansetron HCl (Zofran Tab) 4 mg PO Q6 PRN PRN Reason: Nausea/Vomiting Last Admin: 12/27/17 09:07 Dose: 4 mg Pantoprazole Sodium (Protonix Ec Tab) 40 mg PO 0600 [facility] PRN Reason: Protocol Last Admin: 12/27/17 05:23 Dose: 40 mg Pyridoxine HCl (Vitamin B6 50 Mg Tab) 100 mg PO DAILY [facility] Last Admin: 12/27/17 09:38 Dose: 100 mg Silver Sulfadiazine (Silvadene 1% 25 Gm) 0 gm TP DAILY [facility] PRN Reason: Protocol Last Admin: 12/27/17 12:33 Dose: 1 gm - Labs Labs: 12/27/17 06:15 12/27/17 06:15 - Constitutional Appears: Well, Non-toxic, No Acute Distress - Extremities Exam Additional comments: VASC: DP and PT pulses nonpalpable. +2 pitting edema b/l. CFT delayed x10. Temperature gradient cool to cool. NEURO: Gross sensation diminished bilaterally. DERM: Superficial ulceration noted to lateral right lower leg with minimal drainage present; no purulence; no fluctuance; no malodor; no probe to bone; overlying xerosis. Left lower leg presents with severe xerosis however no open lesions noted. Bilateral venous stasis dermatitis. ORTHO: No pain on palpation to bilateral lower extremity. - Neurological Exam Neurological Exam: Alert, Awake, Oriented x3 - Psychiatric Exam Psychiatric exam: Normal Affect, Normal Mood Assessment and Plan - Assessment and Plan (Free Text) Assessment: 72M with venous stasis ulceration RLE and resolving bilateral cellulitis Plan: Patient seen and evaluated with attending Dr. Griffith Afebrile, WBC 2.7 Continue local wound care - RLE silvadene to wound, Lotrisone to rest of LE, xeroform, DSD; LLE Lotrisone, xeroform, DSD; SAMUEL wraps bilaterally Continue elevation of legs while in bed Podiatry will continue to follow <Soto Griffith - Last Filed: 12/28/17 08:34> Objective - Vital Signs/Intake and Output Vital Signs (last 24 hours): Temp Pulse Resp BP Pulse Ox 98.2 F 70 18 86/49 L 96 12/26/17 17:40 12/28/17 08:17 12/26/17 17:40 12/28/17 08:17 12/27/17 17:07 - Medications Medications: Current Medications Allopurinol (Zyloprim) 300 mg PO QAM FISH PRN Reason: Protocol Last Admin: 12/27/17 09:38 Dose: 300 mg Aspirin (Aspirin Chewable) 81 mg PO 0800 FISH PRN Reason: Protocol Last Admin: 12/28/17 08:15 Dose: 81 mg Atorvastatin Calcium (Lipitor) 20 mg PO DIN FISH PRN Reason: Protocol Last Admin: 12/27/17 17:29 Dose: 20 mg Betamethasone/Clotrimazole (Lotrisone) 0 ml TOP BID [facility] Last Admin: 12/27/17 17:30 Dose: 1 applic Doxycycline Hyclate (Doryx) 100 mg PO Q12 FISH PRN Reason: Protocol Last Admin: 12/27/17 21:55 Dose: 100 mg Famotidine (Pepcid) 20 mg PO HS FISH PRN Reason: Protocol Last Admin: 12/27/17 21:55 Dose: 20 mg Furosemide (Lasix) 40 mg IVP DAILY FISH PRN Reason: Protocol Last Admin: 12/27/17 09:37 Dose: 40 mg Cefepime HCl (Maxipime 1gm) 1 gm in 100 mls @ 100 mls/hr IVPB 0600,1800 FISH PRN Reason: Protocol Last Admin: 12/28/17 05:05 Dose: 100 mls/hr Insulin Detemir (Levemir) 19 unit SC ACBHS FISH PRN Reason: Protocol Last Admin: 12/28/17 07:30 Dose: 19 unit Insulin Human Lispro (Humalog) 10 units SC ACBD FISH PRN Reason: Protocol Last Admin: 12/28/17 07:29 Dose: 10 units Metoclopramide HCl (Reglan) 5 mg PO 0600,1130,1630,2200 FISH Last Admin: 12/28/17 05:06 Dose: 5 mg Metoprolol Tartrate (Lopressor) 50 mg PO 0800,1800 FISH PRN Reason: Protocol Last Admin: 12/28/17 08:17 Dose: Not Given Ondansetron HCl (Zofran Tab) 4 mg PO Q6 PRN PRN Reason: Nausea/Vomiting Last Admin: 12/27/17 09:07 Dose: 4 mg Pantoprazole Sodium (Protonix Ec Tab) 40 mg PO 0600 FISH PRN Reason: Protocol Last Admin: 12/28/17 05:06 Dose: 40 mg Pyridoxine HCl (Vitamin B6 50 Mg Tab) 100 mg PO DAILY [facility] Last Admin: 12/27/17 09:38 Dose: 100 mg Silver Sulfadiazine (Silvadene 1% 25 Gm) 0 gm TP DAILY [facility] PRN Reason: Protocol Last Admin: 12/27/17 12:33 Dose: 1 gm - Labs Labs: 12/27/17 06:15 12/27/17 06:15 Attending/Attestation - Attestation I have personally seen and examined this patient.: Yes I have fully participated in the care of the patient.: Yes I have reviewed all pertinent clinical information, including history, physical exam and plan: Yes
--- NOTE | 2017-12-27 23:39 | PN ---
DATE: SUBJECTIVE: Patient is a 72-year-old, seen and examined, complained of feeling nauseous and vomiting this morning. PHYSICAL EXAMINATION: VITAL SIGNS: He is afebrile. Pulse 72, respirations 18, blood pressure 102/59. LUNGS: Bilateral fair airflow. No rhonchi or crackles. HEART: S1 and S2 audible. ABDOMEN: Soft. Nontender. No rebound. No guarding. NEUROLOGIC: Patient is awake and alert, able to communicate. EXTREMITIES: Bilateral legs erythema is improving. Edema has improved. LABORATORY DATA: WBC is 2.7, hemoglobin 9.2, hematocrit 27.4, platelets of 76. Chemistries, sodium 140, potassium 4.1, chloride 108, CO2 of 26, BUN 38, creatinine 1.4, blood sugar 165. His blood cultures were negative. Urine culture positive for E. coli. ASSESSMENT: 1. Bilateral leg cellulitis. 2. Bilateral leg edema. 3. History of hepatocellular carcinoma of the liver. 4. Non-insulin dependent diabetes. 5. History of partial colectomy. 6. Probably gastroparesis. PLAN: Patient is currently on cefepime and doxycycline, and monitor blood sugar. I will start him on Reglan 5 mg before each meal and see the response. Pierre Holt MD
--- NOTE | 2017-12-28 04:26 | PN ---
DATE: 12/27/2017 SUBJECTIVE: The patient is in bed, in no acute distress, nontoxic. PHYSICAL EXAMINATION: VITAL SIGNS: Temperature is 98, blood pressure is 120/70, respiratory rate of 16. HEENT: Unremarkable. NECK: Supple. LUNGS: Decreased breath sounds. HEART: Normal S1, S2. ABDOMEN: Soft. LABORATORY DATA: Are noted. White count of 2.7, hemoglobin of 9, platelets of 76. ASSESSMENT AND PLAN: This is a 72-year-old male, seen earlier today in 327, bilateral lower extremity skin and skin structure infection with associated lymphedema and fungal infection between the toes, patient is diabetic, obesity, BMI of 32, partial colectomy, on cefepime and doxycycline day #9, complete 10 days of therapy, clotrimazole for toes. Patient states he is tolerating the antibiotics well. Review of the orders reveals the doxycycline to be active and the cefepime requiring renewal, which I will do so. Jerman Weinberg MD : 12/27/2017 20:57:47
[2017-12-28] MEDS: Cefepime 1gm in NS 100ml 1 GM/100 ML BAG IVPB SCH ×2 (05:05→18:03)
[2017-12-28] MEDS: Pantoprazole 40 mg EC Tab PO SCH (05:06)
[2017-12-28] MEDS: Insulin Lispro 1 UNITS/0.01 ML SC SCH ×2 (07:29→17:31)
[2017-12-28] MEDS: Insulin Detemir 100 units/ml Vial (Levemir) SC SCH ×2 (07:30→21:29)
--- NOTE | 2017-12-28 08:22 | CP.PCM.PN ---
Subjective - Date & Time of Evaluation Date of Evaluation: 12/28/17 Time of Evaluation: 08:00 - Subjective Subjective: PGY-[address] Swenson's service Patient seen and examined at bedside in TCU. No acute distress. Patient states that his dressings on his legs have not been changed recently and his feet are swelling. He is participating in PT however he states that it is painful due to the swelling. He denies fever, chills, chest pain, sob, abd pain, n/v, diarrhea. Patient is tolerating diet, no decrease in appetite. Patient is advised that he will need MRI of his liver upon discharge from TCU. Objective - Vital Signs/Intake and Output Vital Signs (last 24 hours): Temp Pulse Resp BP Pulse Ox 98.2 F 70 18 86/49 L 96 12/26/17 17:40 12/28/17 08:17 12/26/17 17:40 12/28/17 08:17 12/27/17 17:07 - Medications Medications: Current Medications Allopurinol (Zyloprim) 300 mg PO QAM FISH PRN Reason: Protocol Last Admin: 12/27/17 09:38 Dose: 300 mg Aspirin (Aspirin Chewable) 81 mg PO 0800 FISH PRN Reason: Protocol Last Admin: 12/28/17 08:15 Dose: 81 mg Atorvastatin Calcium (Lipitor) 20 mg PO DIN FISH PRN Reason: Protocol Last Admin: 12/27/17 17:29 Dose: 20 mg Betamethasone/Clotrimazole (Lotrisone) 0 ml TOP BID FISH Last Admin: 12/27/17 17:30 Dose: 1 applic Doxycycline Hyclate (Doryx) 100 mg PO Q12 FISH PRN Reason: Protocol Last Admin: 12/27/17 21:55 Dose: 100 mg Famotidine (Pepcid) 20 mg PO HS FISH PRN Reason: Protocol Last Admin: 12/27/17 21:55 Dose: 20 mg Furosemide (Lasix) 40 mg IVP DAILY FISH PRN Reason: Protocol Last Admin: 12/27/17 09:37 Dose: 40 mg Cefepime HCl (Maxipime 1gm) 1 gm in 100 mls @ 100 mls/hr IVPB 0600,1800 FISH PRN Reason: Protocol Last Admin: 12/28/17 05:05 Dose: 100 mls/hr Insulin Detemir (Levemir) 19 unit SC ACBHS [facility] PRN Reason: Protocol Last Admin: 12/28/17 07:30 Dose: 19 unit Insulin Human Lispro (Humalog) 10 units SC ACBD [facility] PRN Reason: Protocol Last Admin: 12/28/17 07:29 Dose: 10 units Metoclopramide HCl (Reglan) 5 mg PO 0600,1130,1630,2200 [facility] Last Admin: 12/28/17 05:06 Dose: 5 mg Metoprolol Tartrate (Lopressor) 50 mg PO 0800,1800 [facility] PRN Reason: Protocol Last Admin: 12/28/17 08:17 Dose: Not Given Ondansetron HCl (Zofran Tab) 4 mg PO Q6 PRN PRN Reason: Nausea/Vomiting Last Admin: 12/27/17 09:07 Dose: 4 mg Pantoprazole Sodium (Protonix Ec Tab) 40 mg PO 0600 [facility] PRN Reason: Protocol Last Admin: 12/28/17 05:06 Dose: 40 mg Pyridoxine HCl (Vitamin B6 50 Mg Tab) 100 mg PO DAILY [facility] Last Admin: 12/27/17 09:38 Dose: 100 mg Silver Sulfadiazine (Silvadene 1% 25 Gm) 0 gm TP DAILY [facility] PRN Reason: Protocol Last Admin: 12/27/17 12:33 Dose: 1 gm - Labs Labs: 12/27/17 06:15 12/27/17 06:15 - Constitutional Appears: Well, No Acute Distress - Head Exam Head Exam: ATRAUMATIC, NORMOCEPHALIC - Eye Exam Eye Exam: EOMI, Normal appearance - ENT Exam ENT Exam: Mucous Membranes Moist - Respiratory Exam Respiratory Exam: Clear to Ausculation Bilateral, NORMAL BREATHING PATTERN. absent: Decreased Breath Sounds, Rales, Rhonchi, Wheezes, Respiratory Distress - Cardiovascular Exam Cardiovascular Exam: REGULAR RHYTHM. absent: Bradycardia, Tachycardia, Murmur - GI/Abdominal Exam GI & Abdominal Exam: Soft, Normal Bowel Sounds. absent: Distended, Firm, Tenderness - Neurological Exam Neurological Exam: Alert, Awake, Oriented x3 - Skin Skin Exam: Dry, Intact, Normal Color, Warm Assessment and Plan - Assessment and Plan (Free Text) Assessment: 72 yo male with PMH of diabetes, MARTE cirrhosis, enlarged prostates, PVD, chronic stasis dermititis, htn, cad, hepatocellular carcinoma presented for increasing leg swelling and multiple sores. bilateral leg cellulitis diabetes HTN hyperlipidemia hepatocellular carcinoma cirrhosis with portal HTN anemia leukopenia Plan: CT chest/abd/pelvis showed cirrhotic liver, splenomegaly, no suspicious hepatic masses, limited without contrast patient will need MRI of liver once discharged from TCU alpha feto protein and alpha feto protein L3 and DCP ordered patient's WBC fell to 2.7 today, platelet count also decreased will order peripheral smear and repeat cbc for 3 days will hold off stimulating factors due to patient's splenomegaly continue cefepime and doxy Day 10, antibiotics per ID podiatry for wound care GI recommended outpatient colonscopy upon discharge from TCU, patient has history of colon surgery and family history of colon can case reviewed and discussed with Dr. Delgado
[2017-12-28] MEDS: Silver Sulfadiazine 1% Cream (25 gm) TP SCH (10:09)
[2017-12-28] MEDS: Clotrimazole/Betamethasone Lotion(30 ml) TOP SCH ×2 (10:09→18:03)
--- NOTE | 2017-12-28 10:15 | CP.PCM.PN ---
<Yariel Nixon - Last Filed: 12/28/17 10:11> Subjective - Date & Time of Evaluation Date of Evaluation: 12/28/17 Time of Evaluation: 10:11 - Subjective Subjective: Podiatry Progress Note - Drs. Pruitt/Nacho 72M seen and evaluated at bedside for bilateral lower extremity cellulitis with accompanying edema. Patient resting comfortably, NAD. Denies of no acute overnight events. Denies of any pain to LE today. Dressings clean/dry/intact with no strikethrough noted. No other complaints. Denies N/V/F/D/C/SOB. No new pedal complains. Objective - Vital Signs/Intake and Output Vital Signs (last 24 hours): Temp Pulse Resp BP Pulse Ox 98.2 F 70 18 86/49 L 96 12/26/17 17:40 12/28/17 08:17 12/26/17 17:40 12/28/17 08:17 12/27/17 17:07 - Medications Medications: Current Medications Allopurinol (Zyloprim) 300 mg PO QAM FISH PRN Reason: Protocol Last Admin: 12/27/17 09:38 Dose: 300 mg Aspirin (Aspirin Chewable) 81 mg PO 0800 [facility] PRN Reason: Protocol Last Admin: 12/28/17 08:15 Dose: 81 mg Atorvastatin Calcium (Lipitor) 20 mg PO DIN FISH PRN Reason: Protocol Last Admin: 12/27/17 17:29 Dose: 20 mg Betamethasone/Clotrimazole (Lotrisone) 0 ml TOP BID [facility] Last Admin: 12/27/17 17:30 Dose: 1 applic Doxycycline Hyclate (Doryx) 100 mg PO Q12 FISH PRN Reason: Protocol Last Admin: 12/27/17 21:55 Dose: 100 mg Famotidine (Pepcid) 20 mg PO HS FISH PRN Reason: Protocol Last Admin: 12/27/17 21:55 Dose: 20 mg Furosemide (Lasix) 40 mg IVP DAILY [facility] PRN Reason: Protocol Last Admin: 12/27/17 09:37 Dose: 40 mg Cefepime HCl (Maxipime 1gm) 1 gm in 100 mls @ 100 mls/hr IVPB 0600,1800 [facility] PRN Reason: Protocol Last Admin: 12/28/17 05:05 Dose: 100 mls/hr Insulin Detemir (Levemir) 19 unit SC ACBHS [facility] PRN Reason: Protocol Last Admin: 12/28/17 07:30 Dose: 19 unit Insulin Human Lispro (Humalog) 10 units SC ACBD [facility] PRN Reason: Protocol Last Admin: 12/28/17 07:29 Dose: 10 units Metoclopramide HCl (Reglan) 5 mg PO 0600,1130,1630,2200 [facility] Last Admin: 12/28/17 05:06 Dose: 5 mg Metoprolol Tartrate (Lopressor) 50 mg PO 0800,1800 [facility] PRN Reason: Protocol Last Admin: 12/28/17 08:17 Dose: Not Given Ondansetron HCl (Zofran Tab) 4 mg PO Q6 PRN PRN Reason: Nausea/Vomiting Last Admin: 12/27/17 09:07 Dose: 4 mg Pantoprazole Sodium (Protonix Ec Tab) 40 mg PO 0600 [facility] PRN Reason: Protocol Last Admin: 12/28/17 05:06 Dose: 40 mg Pyridoxine HCl (Vitamin B6 50 Mg Tab) 100 mg PO DAILY [facility] Last Admin: 12/27/17 09:38 Dose: 100 mg Silver Sulfadiazine (Silvadene 1% 25 Gm) 0 gm TP DAILY [facility] PRN Reason: Protocol Last Admin: 12/27/17 12:33 Dose: 1 gm - Labs Labs: 12/27/17 06:15 12/27/17 06:15 - Constitutional Appears: Well, Non-toxic, No Acute Distress - Extremities Exam Additional comments: VASC: DP and PT pulses nonpalpable. +2 pitting edema b/l. CFT delayed x10. Temperature gradient cool to cool. NEURO: Gross sensation diminished bilaterally. DERM: Superficial ulceration noted to lateral right lower leg which appear to be epithealialized with no active drainage; no purulence; no fluctuance; no malodor; no probe to bone; overlying xerosis. Left lower leg presents with severe xerosis however no open lesions noted. Bilateral venous stasis dermatitis. ORTHO: No pain on palpation to bilateral lower extremity. - Neurological Exam Neurological Exam: Alert, Awake, Oriented x3 - Psychiatric Exam Psychiatric exam: Normal Affect, Normal Mood Assessment and Plan - Assessment and Plan (Free Text) Assessment: 72M with venous stasis ulceration RLE and resolving bilateral cellulitis Plan: Patient seen and evaluated with attending Dr. Griffith Afebrile, WBC 2.7 as of yesterday Continue local wound care - Lotrisone cream to bilateral LE Continue elevation of legs while in bed Podiatry will continue to follow <Soto Griffith - Last Filed: 12/28/17 15:19> Objective - Vital Signs/Intake and Output Vital Signs (last 24 hours): Temp Pulse Resp BP Pulse Ox 98.2 F 70 18 98/54 L 96 12/26/17 17:40 12/28/17 08:17 12/26/17 17:40 12/28/17 10:12 12/27/17 17:07 - Medications Medications: Current Medications Allopurinol (Zyloprim) 300 mg PO QAM FISH PRN Reason: Protocol Last Admin: 12/28/17 10:13 Dose: 300 mg Aspirin (Aspirin Chewable) 81 mg PO 0800 [facility] PRN Reason: Protocol Last Admin: 12/28/17 08:15 Dose: 81 mg Atorvastatin Calcium (Lipitor) 20 mg PO DIN FISH PRN Reason: Protocol Last Admin: 12/27/17 17:29 Dose: 20 mg Betamethasone/Clotrimazole (Lotrisone) 0 ml TOP BID [facility] Last Admin: 12/28/17 10:09 Dose: 1 applic Doxycycline Hyclate (Doryx) 100 mg PO Q12 [facility] PRN Reason: Protocol Last Admin: 12/28/17 10:13 Dose: 100 mg Famotidine (Pepcid) 20 mg PO HS FISH PRN Reason: Protocol Last Admin: 12/27/17 21:55 Dose: 20 mg Furosemide (Lasix) 40 mg IVP DAILY [facility] PRN Reason: Protocol Last Admin: 12/28/17 10:12 Dose: 40 mg Cefepime HCl (Maxipime 1gm) 1 gm in 100 mls @ 100 mls/hr IVPB 0600,1800 [facility] PRN Reason: Protocol Last Admin: 12/28/17 05:05 Dose: 100 mls/hr Insulin Detemir (Levemir) 19 unit SC ACBHS [facility] PRN Reason: Protocol Last Admin: 12/28/17 07:30 Dose: 19 unit Insulin Human Lispro (Humalog) 10 units SC ACBD [facility] PRN Reason: Protocol Last Admin: 12/28/17 07:29 Dose: 10 units Metoclopramide HCl (Reglan) 5 mg PO 0600,1130,1630,2200 [facility] Last Admin: 12/28/17 14:30 Dose: Not Given Metoprolol Tartrate (Lopressor) 50 mg PO 0800,1800 [facility] PRN Reason: Protocol Last Admin: 12/28/17 08:17 Dose: Not Given Ondansetron HCl (Zofran Tab) 4 mg PO Q6 PRN PRN Reason: Nausea/Vomiting Last Admin: 12/27/17 09:07 Dose: 4 mg Pantoprazole Sodium (Protonix Ec Tab) 40 mg PO 0600 [facility] PRN Reason: Protocol Last Admin: 12/28/17 05:06 Dose: 40 mg Pyridoxine HCl (Vitamin B6 50 Mg Tab) 100 mg PO DAILY [facility] Last Admin: 12/28/17 10:13 Dose: 100 mg Silver Sulfadiazine (Silvadene 1% 25 Gm) 0 gm TP DAILY [facility] PRN Reason: Protocol Last Admin: 12/28/17 10:09 Dose: 1 gm - Labs Labs: 12/28/17 11:00 12/27/17 06:15 Attending/Attestation - Attestation I have personally seen and examined this patient.: Yes I have fully participated in the care of the patient.: Yes I have reviewed all pertinent clinical information, including history, physical exam and plan: Yes
[2017-12-28 11:53] LABS: BASO # 0.05 K/mm3 (0.0-2.0); EOS # 0.3 (0.0-0.7); EOS % 5.5 % (1.5-5.0); GRAN # 2.84 (1.4-6.5); GRAN % 54.1 % (50.0-68.0); HEMOGLOBIN 10.8 g/dL (14.0-18.0); LYMPH # 1.6 (1.2-3.4); LYMPH % 31.2 % (22.0-35.0); MEAN CELL VOLUME 98.2 fl (80.0-105.0); MEAN CORPUSCULAR HEMOGLOBIN 32.9 pg (25.0-35.0); MEAN CORPUSCULAR HGB CONC 33.5 g/dl (31.0-37.0); MEAN PLATELET VOLUME 10.2 fl (7.0-11.0); MONO # 0.4 (0.1-0.6); MONO % 8.2 % (1.0-6.0); RBC 3.28 10^6/uL (3.5-6.1); RED CELL DISTRIBUTION WIDTH 14.5 % (11.5-14.5); WHITE BLOOD COUNT 5.3 10^3/ul (4.5-11.0)
--- NOTE | 2017-12-28 17:19 | CP.PCM.PN ---
Subjective - Date & Time of Evaluation Date of Evaluation: 12/28/17 Time of Evaluation: 12:10 - Subjective Subjective: No fevers, not in distress, improved pain in the legs. Objective - Vital Signs/Intake and Output Vital Signs (last 24 hours): Temp Pulse Resp BP Pulse Ox 98.7 F 87 18 112/58 L 98 12/28/17 16:00 12/28/17 16:00 12/28/17 16:00 12/28/17 16:00 12/28/17 16:00 - Medications Medications: Current Medications Allopurinol (Zyloprim) 300 mg PO QAM FISH PRN Reason: Protocol Last Admin: 12/28/17 10:13 Dose: 300 mg Aspirin (Aspirin Chewable) 81 mg PO 0800 [facility] PRN Reason: Protocol Last Admin: 12/28/17 08:15 Dose: 81 mg Atorvastatin Calcium (Lipitor) 20 mg PO DIN [facility] PRN Reason: Protocol Last Admin: 12/27/17 17:29 Dose: 20 mg Betamethasone/Clotrimazole (Lotrisone) 0 ml TOP BID [facility] Last Admin: 12/28/17 10:09 Dose: 1 applic Doxycycline Hyclate (Doryx) 100 mg PO Q12 [facility] PRN Reason: Protocol Last Admin: 12/28/17 10:13 Dose: 100 mg Famotidine (Pepcid) 20 mg PO HS FISH PRN Reason: Protocol Last Admin: 12/27/17 21:55 Dose: 20 mg Furosemide (Lasix) 40 mg IVP DAILY [facility] PRN Reason: Protocol Last Admin: 12/28/17 10:12 Dose: 40 mg Cefepime HCl (Maxipime 1gm) 1 gm in 100 mls @ 100 mls/hr IVPB 0600,1800 [facility] PRN Reason: Protocol Last Admin: 12/28/17 05:05 Dose: 100 mls/hr Insulin Detemir (Levemir) 19 unit SC ACBHS [facility] PRN Reason: Protocol Last Admin: 12/28/17 07:30 Dose: 19 unit Insulin Human Lispro (Humalog) 10 units SC ACBD [facility] PRN Reason: Protocol Last Admin: 12/28/17 07:29 Dose: 10 units Metoclopramide HCl (Reglan) 5 mg PO 0600,1130,1630,2200 [facility] Last Admin: 12/28/17 14:30 Dose: Not Given Metoprolol Tartrate (Lopressor) 50 mg PO 0800,1800 [facility] PRN Reason: Protocol Last Admin: 12/28/17 08:17 Dose: Not Given Ondansetron HCl (Zofran Tab) 4 mg PO Q6 PRN PRN Reason: Nausea/Vomiting Last Admin: 12/27/17 09:07 Dose: 4 mg Pantoprazole Sodium (Protonix Ec Tab) 40 mg PO 0600 [facility] PRN Reason: Protocol Last Admin: 12/28/17 05:06 Dose: 40 mg Pyridoxine HCl (Vitamin B6 50 Mg Tab) 100 mg PO DAILY [facility] Last Admin: 12/28/17 10:13 Dose: 100 mg Silver Sulfadiazine (Silvadene 1% 25 Gm) 0 gm TP DAILY [facility] PRN Reason: Protocol Last Admin: 12/28/17 10:09 Dose: 1 gm - Labs Labs: 12/28/17 11:00 12/27/17 06:15 - Constitutional Appears: Chronically Ill - Head Exam Head Exam: NORMAL INSPECTION - ENT Exam ENT Exam: Mucous Membranes Moist - Neck Exam Neck Exam: absent: Meningismus - Respiratory Exam Respiratory Exam: Decreased Breath Sounds - Cardiovascular Exam Cardiovascular Exam: +S1, +S2 - GI/Abdominal Exam GI & Abdominal Exam: Soft. absent: Tenderness - Extremities Exam Additional comments: both legs with dressings in place Assessment and Plan - Assessment and Plan (Free Text) Plan: Assessment Bilateral lower extremity skin and skin structure infection with blisters associated with lymphedema, with fungal infection in between toes DM obesity with BMI 32 S/P partial colectomy Plan continue Cefepime and Doxycycline day 10 to complete up to 10 days of therapy - will d/c after today continue Clotrimazole for the toes will continue to monitor clinically
--- NOTE | 2017-12-28 23:39 | PN ---
DATE: SUBJECTIVE: The patient is a 72-year-old, seen and examined, lying in bed, seems to be comfortable. Does not feel nauseous today. Had some breakfast. Does not have very good appetite. PHYSICAL EXAMINATION: VITAL SIGNS: He is afebrile, pulse 94, respirations 18, blood pressure 129/67. LUNGS: Bilateral fair airflow. No rhonchi or crackle. HEART: S1 and S2 audible. ABDOMEN: Soft, obese, nontender. No rebound, no guarding. EXTREMITIES: Bilateral leg, he has erythema with desquamation of both shins. Swelling has improved, but still there. LABORATORY DATA: WBC 5.3, hemoglobin 10.8, hematocrit 32.2, and platelets 110. Chemistry: Blood sugar is 94. Blood cultures are negative. Urine culture shows E. coli. ASSESSMENT: 1. Bilateral leg cellulitis. 2. [id number] diabetes. 3. Hepatocellular carcinoma. 4. Gastroparesis. PLAN: I will speak to Dr. Monsalve. He should be scheduled for endoscopy on Tuesday that is his discharge date. The patient states it is hard for him to come back and forth since he lives alone, he does not have any family member around, who can transport her and discussed with Dr. Monsalve and he also get MRI done at . Pierre Holt MD
[2017-12-29] MEDS: Cefepime 1gm in NS 100ml 1 GM/100 ML BAG IVPB SCH ×2 (05:05→17:33)
[2017-12-29] MEDS: Pantoprazole 40 mg EC Tab PO SCH (05:06)
[2017-12-29] MEDS: Insulin Lispro 1 UNITS/0.01 ML SC SCH ×2 (07:19→17:30)
[2017-12-29] MEDS: Insulin Detemir 100 units/ml Vial (Levemir) SC SCH ×2 (07:20→22:18)
[2017-12-29 07:29] LABS: BASO # 0.04 K/mm3 (0.0-2.0); BASO % 1.4 % (0.0-3.0); EOS # 0.2 (0.0-0.7); EOS % 5.6 % (1.5-5.0); GRAN # 1.26 (1.4-6.5); GRAN % 44.1 % (50.0-68.0); HEMOGLOBIN 9.2 g/dL (14.0-18.0); LYMPH # 0.9 (1.2-3.4); LYMPH % 31.1 % (22.0-35.0); MEAN CELL VOLUME 97.4 fl (80.0-105.0); MEAN CORPUSCULAR HEMOGLOBIN 33.6 pg (25.0-35.0); MEAN CORPUSCULAR HGB CONC 34.5 g/dl (31.0-37.0); MEAN PLATELET VOLUME 10.4 fl (7.0-11.0); MONO # 0.5 (0.1-0.6); MONO % 17.8 % (1.0-6.0); RBC 2.74 10^6/uL (3.5-6.1); RED CELL DISTRIBUTION WIDTH 14.6 % (11.5-14.5)
[2017-12-29 07:36] LABS: WHITE BLOOD COUNT 2.9 10^3/ul (4.5-11.0)
[2017-12-29 07:50] LABS: ALB/GLOB RATIO 0.8 (1.1-1.8); ALBUMIN 2.7 g/dL (3.0-4.8); CALCIUM 9.1 mg/dL (8.4-10.5)
--- NOTE | 2017-12-29 10:01 | CP.PCM.PN ---
<Yariel Nixon - Last Filed: 12/29/17 09:59> Subjective - Date & Time of Evaluation Date of Evaluation: 12/29/17 Time of Evaluation: 09:59 - Subjective Subjective: Podiatry Progress Note - Drs. Pruitt/Nacho 72M seen and evaluated at bedside for bilateral lower extremity cellulitis with accompanying edema. Patient resting comfortably, NAD. Denies of any pain to LE today. Denies of no acute overnight events. Denies N/V/F/D/C/SOB. No new pedal complains. Objective - Vital Signs/Intake and Output Vital Signs (last 24 hours): Temp Pulse Resp BP Pulse Ox 98.7 F 68 18 102/60 98 12/28/17 16:00 12/29/17 08:26 12/28/17 16:00 12/29/17 08:26 12/28/17 16:00 - Medications Medications: Current Medications Allopurinol (Zyloprim) 300 mg PO QAM FISH PRN Reason: Protocol Last Admin: 12/28/17 10:13 Dose: 300 mg Aspirin (Aspirin Chewable) 81 mg PO 0800 FISH PRN Reason: Protocol Last Admin: 12/29/17 08:26 Dose: 81 mg Atorvastatin Calcium (Lipitor) 20 mg PO DIN FISH PRN Reason: Protocol Last Admin: 12/28/17 18:00 Dose: 20 mg Betamethasone/Clotrimazole (Lotrisone) 0 ml TOP BID FISH Last Admin: 12/28/17 18:03 Dose: 1 applic Doxycycline Hyclate (Doryx) 100 mg PO Q12 FISH PRN Reason: Protocol Last Admin: 12/28/17 21:19 Dose: 100 mg Famotidine (Pepcid) 20 mg PO HS FISH PRN Reason: Protocol Last Admin: 12/28/17 21:19 Dose: 20 mg Furosemide (Lasix) 40 mg IVP DAILY FISH PRN Reason: Protocol Last Admin: 12/28/17 10:12 Dose: 40 mg Cefepime HCl (Maxipime 1gm) 1 gm in 100 mls @ 100 mls/hr IVPB 0600,1800 FISH PRN Reason: Protocol Last Admin: 12/29/17 05:05 Dose: 100 mls/hr Insulin Detemir (Levemir) 20 unit SC ACBHS FISH PRN Reason: Protocol Last Admin: 12/29/17 07:20 Dose: Not Given Insulin Human Lispro (Humalog) 10 units SC ACBD FISH PRN Reason: Protocol Last Admin: 12/29/17 07:19 Dose: Not Given Metoclopramide HCl (Reglan) 5 mg PO 0600,1130,1630,2200 [facility] Last Admin: 12/29/17 05:06 Dose: 5 mg Metoprolol Tartrate (Lopressor) 50 mg PO 0800,1800 [facility] PRN Reason: Protocol Last Admin: 12/29/17 08:26 Dose: 50 mg Ondansetron HCl (Zofran Tab) 4 mg PO Q6 PRN PRN Reason: Nausea/Vomiting Last Admin: 12/27/17 09:07 Dose: 4 mg Pantoprazole Sodium (Protonix Ec Tab) 40 mg PO 0600 [facility] PRN Reason: Protocol Last Admin: 12/29/17 05:06 Dose: 40 mg Pyridoxine HCl (Vitamin B6 50 Mg Tab) 100 mg PO DAILY [facility] Last Admin: 12/28/17 10:13 Dose: 100 mg Silver Sulfadiazine (Silvadene 1% 25 Gm) 0 gm TP DAILY [facility] PRN Reason: Protocol Last Admin: 12/28/17 10:09 Dose: 1 gm - Labs Labs: 12/29/17 07:00 12/29/17 07:00 - Constitutional Appears: Well, Non-toxic, No Acute Distress - Extremities Exam Additional comments: VASC: DP and PT pulses nonpalpable. +2 pitting edema b/l. CFT delayed x10. Temperature gradient cool to cool. NEURO: Gross sensation diminished bilaterally. DERM: Superficial ulceration noted to lateral right lower leg which appear to be epithealialized with no active drainage; no purulence; no fluctuance; no malodor; no probe to bone; overlying xerosis. Left lower leg presents with severe xerosis however no open lesions noted. Bilateral venous stasis dermatitis. ORTHO: No pain on palpation to bilateral lower extremity. - Neurological Exam Neurological Exam: Alert, Awake, Oriented x3 - Psychiatric Exam Psychiatric exam: Normal Affect, Normal Mood Assessment and Plan - Assessment and Plan (Free Text) Assessment: 72M with venous stasis ulceration RLE and resolving bilateral cellulitis Plan: Patient seen and evaluated with attending Dr. Griffith Afebrile, WBC 2.9 Continue local wound care - Lotrisone cream to bilateral LE Continue elevation of legs while in bed Continue IV abx as per ID Podiatry will continue to follow <Soto Griffith - Last Filed: 12/29/17 11:30> Objective - Vital Signs/Intake and Output Vital Signs (last 24 hours): Temp Pulse Resp BP Pulse Ox 98.7 F 68 18 100/65 98 12/28/17 16:00 12/29/17 08:26 12/28/17 16:00 12/29/17 10:22 12/28/17 16:00 - Medications Medications: Current Medications Allopurinol (Zyloprim) 300 mg PO QAM FISH PRN Reason: Protocol Last Admin: 12/29/17 10:59 Dose: 300 mg Aspirin (Aspirin Chewable) 81 mg PO 0800 FISH PRN Reason: Protocol Last Admin: 12/29/17 08:26 Dose: 81 mg Atorvastatin Calcium (Lipitor) 20 mg PO DIN FISH PRN Reason: Protocol Last Admin: 12/28/17 18:00 Dose: 20 mg Betamethasone/Clotrimazole (Lotrisone) 0 ml TOP BID [facility] Last Admin: 12/29/17 10:59 Dose: 1 applic Doxycycline Hyclate (Doryx) 100 mg PO Q12 FISH PRN Reason: Protocol Last Admin: 12/29/17 10:59 Dose: 100 mg Famotidine (Pepcid) 20 mg PO HS FISH PRN Reason: Protocol Last Admin: 12/28/17 21:19 Dose: 20 mg Furosemide (Lasix) 40 mg IVP DAILY FISH PRN Reason: Protocol Last Admin: 12/29/17 10:22 Dose: 40 mg Cefepime HCl (Maxipime 1gm) 1 gm in 100 mls @ 100 mls/hr IVPB 0600,1800 FISH PRN Reason: Protocol Last Admin: 12/29/17 05:05 Dose: 100 mls/hr Insulin Detemir (Levemir) 20 unit SC ACBHS FISH PRN Reason: Protocol Last Admin: 12/29/17 07:20 Dose: Not Given Insulin Human Lispro (Humalog) 10 units SC ACBD FISH PRN Reason: Protocol Last Admin: 12/29/17 07:19 Dose: Not Given Metoclopramide HCl (Reglan) 5 mg PO 0600,1130,1630,2200 FISH Last Admin: 12/29/17 11:18 Dose: 5 mg Metoprolol Tartrate (Lopressor) 50 mg PO 0800,1800 FISH PRN Reason: Protocol Last Admin: 12/29/17 08:26 Dose: 50 mg Ondansetron HCl (Zofran Tab) 4 mg PO Q6 PRN PRN Reason: Nausea/Vomiting Last Admin: 12/27/17 09:07 Dose: 4 mg Pantoprazole Sodium (Protonix Ec Tab) 40 mg PO 0600 FISH PRN Reason: Protocol Last Admin: 12/29/17 05:06 Dose: 40 mg Pyridoxine HCl (Vitamin B6 50 Mg Tab) 100 mg PO DAILY [facility] Last Admin: 12/29/17 10:59 Dose: 100 mg Silver Sulfadiazine (Silvadene 1% 25 Gm) 0 gm TP DAILY FISH PRN Reason: Protocol Last Admin: 12/29/17 11:18 Dose: 1 gm - Labs Labs: 12/29/17 07:00 12/29/17 07:00 Attending/Attestation - Attestation I have personally seen and examined this patient.: Yes I have fully participated in the care of the patient.: Yes I have reviewed all pertinent clinical information, including history, physical exam and plan: Yes
--- NOTE | 2017-12-29 10:04 | CP.PCM.PN ---
Subjective - Date & Time of Evaluation Date of Evaluation: 12/29/17 Time of Evaluation: 09:00 - Subjective Subjective: PGY-[address] Swenson's service Patient seen and examined at bedside in TCU. No acute distress. Patient states that his dressings on his legs were removed yesterday. He is participating in PT however he states that it is painful due to the swelling. He denies fever, chills, chest pain, sob, abd pain, n/v, diarrhea. Patient is tolerating diet, no decrease in appetite. Objective - Vital Signs/Intake and Output Vital Signs (last 24 hours): Temp Pulse Resp BP Pulse Ox 98.7 F 68 18 102/60 98 12/28/17 16:00 12/29/17 08:26 12/28/17 16:00 12/29/17 08:26 12/28/17 16:00 - Medications Medications: Current Medications Allopurinol (Zyloprim) 300 mg PO QAM FISH PRN Reason: Protocol Last Admin: 12/28/17 10:13 Dose: 300 mg Aspirin (Aspirin Chewable) 81 mg PO 0800 FISH PRN Reason: Protocol Last Admin: 12/29/17 08:26 Dose: 81 mg Atorvastatin Calcium (Lipitor) 20 mg PO DIN FISH PRN Reason: Protocol Last Admin: 12/28/17 18:00 Dose: 20 mg Betamethasone/Clotrimazole (Lotrisone) 0 ml TOP BID FISH Last Admin: 12/28/17 18:03 Dose: 1 applic Doxycycline Hyclate (Doryx) 100 mg PO Q12 FISH PRN Reason: Protocol Last Admin: 12/28/17 21:19 Dose: 100 mg Famotidine (Pepcid) 20 mg PO HS FISH PRN Reason: Protocol Last Admin: 12/28/17 21:19 Dose: 20 mg Furosemide (Lasix) 40 mg IVP DAILY FISH PRN Reason: Protocol Last Admin: 12/28/17 10:12 Dose: 40 mg Cefepime HCl (Maxipime 1gm) 1 gm in 100 mls @ 100 mls/hr IVPB 0600,1800 FISH PRN Reason: Protocol Last Admin: 12/29/17 05:05 Dose: 100 mls/hr Insulin Detemir (Levemir) 20 unit SC ACBHS FISH PRN Reason: Protocol Last Admin: 12/29/17 07:20 Dose: Not Given Insulin Human Lispro (Humalog) 10 units SC ACBD [facility] PRN Reason: Protocol Last Admin: 12/29/17 07:19 Dose: Not Given Metoclopramide HCl (Reglan) 5 mg PO 0600,1130,1630,2200 [facility] Last Admin: 12/29/17 05:06 Dose: 5 mg Metoprolol Tartrate (Lopressor) 50 mg PO 0800,1800 [facility] PRN Reason: Protocol Last Admin: 12/29/17 08:26 Dose: 50 mg Ondansetron HCl (Zofran Tab) 4 mg PO Q6 PRN PRN Reason: Nausea/Vomiting Last Admin: 12/27/17 09:07 Dose: 4 mg Pantoprazole Sodium (Protonix Ec Tab) 40 mg PO 0600 [facility] PRN Reason: Protocol Last Admin: 12/29/17 05:06 Dose: 40 mg Pyridoxine HCl (Vitamin B6 50 Mg Tab) 100 mg PO DAILY [facility] Last Admin: 12/28/17 10:13 Dose: 100 mg Silver Sulfadiazine (Silvadene 1% 25 Gm) 0 gm TP DAILY [facility] PRN Reason: Protocol Last Admin: 12/28/17 10:09 Dose: 1 gm - Labs Labs: 12/29/17 07:00 12/29/17 07:00 - Constitutional Appears: No Acute Distress - Head Exam Head Exam: ATRAUMATIC, NORMOCEPHALIC - Eye Exam Eye Exam: EOMI, Normal appearance - ENT Exam ENT Exam: Mucous Membranes Moist - Respiratory Exam Respiratory Exam: Clear to Ausculation Bilateral, NORMAL BREATHING PATTERN. absent: Rhonchi, Wheezes, Respiratory Distress - Cardiovascular Exam Cardiovascular Exam: REGULAR RHYTHM. absent: Bradycardia, Tachycardia, Murmur - GI/Abdominal Exam GI & Abdominal Exam: Soft, Normal Bowel Sounds. absent: Distended, Firm, Tenderness - Extremities Exam Additional comments: mild erythema, edema, multiple lesions bilaterally - Neurological Exam Neurological Exam: Alert, Awake, Oriented x3 - Skin Skin Exam: Dry, Warm Assessment and Plan - Assessment and Plan (Free Text) Assessment: 72 yo male with PMH of diabetes, MARTE cirrhosis, enlarged prostates, PVD, chronic stasis dermititis, htn, cad, hepatocellular carcinoma presented for increasing leg swelling and multiple sores. bilateral leg cellulitis diabetes HTN hyperlipidemia hepatocellular carcinoma cirrhosis with portal HTN anemia leukopenia Plan: CT chest/abd/pelvis showed cirrhotic liver, splenomegaly, no suspicious hepatic masses, limited without contrast patient will need MRI of liver once discharged from TCU, prescription in chart alpha feto protein and alpha feto protein L3 and DCP ordered patient's WBC is low, platelet count also decreased peripheral smear reviewed repeat cbc tomorrow will hold off stimulating factors due to patient's splenomegaly antibiotics completed yesterday, antibiotics per ID podiatry for wound care GI recommended outpatient colonscopy upon discharge from TCU, patient has history of colon surgery and family history of colon can case reviewed and discussed with Dr. Delgado
[2017-12-29] MEDS: Clotrimazole/Betamethasone Lotion(30 ml) TOP SCH ×2 (10:59→17:32)
[2017-12-29] MEDS: Silver Sulfadiazine 1% Cream (25 gm) TP SCH (11:18)
--- NOTE | 2017-12-29 15:04 | PN ---
DATE: 12/29/2017 SUBJECTIVE: The patient is in bed, in no acute distress, nontoxic. PHYSICAL EXAMINATION: VITAL SIGNS: Temperature is 98, blood pressure is 112/60, respiratory rate of 18, heart rate of 94. HEENT: Unremarkable. NECK: Supple. LUNGS: Decreased breath sounds. HEART: Normal S1, S2. ABDOMEN: Soft. EXTREMITIES: Examination of the lower extremities much improved. LABORATORY EXAMINATION: Reveals the patient's white count is 2.9, hemoglobin of 9, and platelets of 75. Coagulation is noted. BUN of 38, creatinine of 1.6. ASSESSMENT AND PLAN: A 72-year-old with bilateral lower extremity skin and skin structure infection with blister associated lymphedema and fungal infection between toes and diabetic on cefepime and doxycycline, and today is day #11. The patient had received 10 days of antibiotics. Currently, the patient is on p.o. doxycycline and cefepime. The patient is scheduled for discharge possibly tomorrow. Jerman Weinberg MD
--- NOTE | 2017-12-29 16:57 | PN ---
DATE: 12/29/2017 SUBJECTIVE: The patient is 72 years old, seen and examined, sitting in a chair, seems to be comfortable, ambulatory, eating and tolerating, nonosseous today, able to tolerate his breakfast. PHYSICAL EXAMINATION: VITAL SIGNS: He is afebrile, pulse 68, respirations 18, and blood pressure 100/65. LUNGS: Bilateral fair airflow. No rhonchi or crackle. HEART: S1 and S2 audible. ABDOMEN: Soft, obese, and nontender. No rebound. No guarding. NEUROLOGICAL: He is awake and alert. Able to communicate. EXTREMITIES: Bilateral leg, he has erythema, much better than before. Edema has subsided. Still has +1 edema with chronic stasis dermatitis. LABORATORY EXAMINATIONS: WBC 2.9, hemoglobin 9.2, hematocrit 26.7, and platelets of 75. Chemistry: Sodium of 140, potassium 3.9, chloride 106, CO2 of 25. BUN 38, creatinine 1.6. Blood sugar of 104. ASSESSMENT AND PLAN: 1. Bilateral leg cellulitis, seems to be improving. 2. Bilateral leg edema. 3. Hypertension. 4. Hyperlipidemia. 5. Hepatocellular carcinoma, status post arterial embolization by . 7. History of gastroparesis. PLAN: Spoke to Dr. Monsalve. He will try to schedule him for endoscopy tomorrow after discharge and in the meantime, will continue current medication. He need local wound care. He need diuretics and I will discharge him home tomorrow and will get visiting nurses. Pierre Holt MD
[2017-12-30] MEDS: Pantoprazole 40 mg EC Tab PO SCH (05:20)
[2017-12-30] MEDS: Cefepime 1gm in NS 100ml 1 GM/100 ML BAG IVPB SCH (05:20)
[2017-12-30 07:19] LABS: BASO # 0.04 K/mm3 (0.0-2.0); BASO % 1.6 % (0.0-3.0); EOS # 0.1 (0.0-0.7); EOS % 5.6 % (1.5-5.0); GRAN # 1.02 (1.4-6.5); GRAN % 40.9 % (50.0-68.0); HEMOGLOBIN 9.3 g/dL (14.0-18.0); MEAN CELL VOLUME 97.8 fl (80.0-105.0); MEAN CORPUSCULAR HEMOGLOBIN 33.5 pg (25.0-35.0); MEAN CORPUSCULAR HGB CONC 34.2 g/dl (31.0-37.0); MEAN PLATELET VOLUME 10.5 fl (7.0-11.0); MONO # 0.3 (0.1-0.6); MONO % 12.9 % (1.0-6.0); RBC 2.78 10^6/uL (3.5-6.1); RED CELL DISTRIBUTION WIDTH 14.4 % (11.5-14.5)
[2017-12-30] MEDS: Insulin Detemir 100 units/ml Vial (Levemir) SC SCH (07:39)
[2017-12-30] MEDS: Insulin Lispro 1 UNITS/0.01 ML SC SCH ×2 (07:39→17:15)
[2017-12-30 07:40] LABS: WHITE BLOOD COUNT 2.5 10^3/ul (4.5-11.0)
[2017-12-30] MEDS: Clotrimazole/Betamethasone Lotion(30 ml) TOP SCH (09:56)
[2017-12-30] MEDS: Silver Sulfadiazine 1% Cream (25 gm) TP SCH (09:57)
--- NOTE | 2017-12-30 13:32 | CP.PCM.PN ---
<Yariel Nixon - Last Filed: 12/30/17 13:30> Subjective - Date & Time of Evaluation Date of Evaluation: 12/30/17 Time of Evaluation: 13:30 - Subjective Subjective: Podiatry Progress Note - Drs. Pruitt/Nacho 72M seen and evaluated at bedside for bilateral lower extremity cellulitis with accompanying edema. Patient resting comfortably, NAD. Denies of any pain to LE today. Denies of no acute overnight events. Denies N/V/F/D/C/SOB. No new pedal complains. Objective - Vital Signs/Intake and Output Vital Signs (last 24 hours): Temp Pulse Resp BP Pulse Ox 98.0 F 75 18 130/57 L 99 12/30/17 06:00 12/30/17 08:24 12/30/17 06:00 12/30/17 09:55 12/30/17 06:00 - Medications Medications: Current Medications Allopurinol (Zyloprim) 300 mg PO QAM FISH PRN Reason: Protocol Last Admin: 12/30/17 09:57 Dose: 300 mg Aspirin (Aspirin Chewable) 81 mg PO 0800 FISH PRN Reason: Protocol Last Admin: 12/30/17 08:24 Dose: 81 mg Atorvastatin Calcium (Lipitor) 20 mg PO DIN FISH PRN Reason: Protocol Last Admin: 12/29/17 17:31 Dose: 20 mg Betamethasone/Clotrimazole (Lotrisone) 0 ml TOP BID FISH Last Admin: 12/30/17 09:56 Dose: 1 applic Famotidine (Pepcid) 20 mg PO HS FISH PRN Reason: Protocol Last Admin: 12/29/17 21:31 Dose: 20 mg Furosemide (Lasix) 40 mg IVP DAILY FISH PRN Reason: Protocol Last Admin: 12/30/17 09:55 Dose: 40 mg Insulin Detemir (Levemir) 20 unit SC ACBHS FISH PRN Reason: Protocol Last Admin: 12/30/17 07:39 Dose: Not Given Insulin Human Lispro (Humalog) 10 units SC ACBD FISH PRN Reason: Protocol Last Admin: 12/30/17 07:39 Dose: Not Given Metoclopramide HCl (Reglan) 5 mg PO 0600,1130,1630,2200 [facility] Last Admin: 12/30/17 05:21 Dose: 5 mg Metoprolol Tartrate (Lopressor) 50 mg PO 0800,1800 FISH PRN Reason: Protocol Last Admin: 12/30/17 08:24 Dose: 50 mg Ondansetron HCl (Zofran Tab) 4 mg PO Q6 PRN PRN Reason: Nausea/Vomiting Last Admin: 12/27/17 09:07 Dose: 4 mg Pantoprazole Sodium (Protonix Ec Tab) 40 mg PO 0600 FISH PRN Reason: Protocol Last Admin: 12/30/17 05:20 Dose: 40 mg Pyridoxine HCl (Vitamin B6 50 Mg Tab) 100 mg PO DAILY [facility] Last Admin: 12/30/17 09:57 Dose: 100 mg Silver Sulfadiazine (Silvadene 1% 25 Gm) 0 gm TP DAILY [facility] PRN Reason: Protocol Last Admin: 12/30/17 09:57 Dose: 1 gm - Labs Labs: 12/30/17 06:45 12/29/17 07:00 - Constitutional Appears: Well, Non-toxic, No Acute Distress - Extremities Exam Additional comments: VASC: DP and PT pulses nonpalpable. +2 pitting edema b/l. CFT delayed x10. Temperature gradient cool to cool. NEURO: Gross sensation diminished bilaterally. DERM: Superficial ulceration noted to lateral right lower leg which appear to be epithealialized with no active drainage; no purulence; no fluctuance; no malodor; no probe to bone; overlying xerosis. Left lower leg presents with severe xerosis however no open lesions noted. Bilateral venous stasis dermatitis. ORTHO: No pain on palpation to bilateral lower extremity. - Neurological Exam Neurological Exam: Alert, Awake, Oriented x3 - Psychiatric Exam Psychiatric exam: Normal Affect, Normal Mood Assessment and Plan - Assessment and Plan (Free Text) Assessment: 72M with venous stasis ulceration RLE and resolving bilateral cellulitis Plan: Patient seen and evaluated with attending Dr. Griffith Afebrile, WBC 2.5 Continue local wound care - Lotrisone cream to bilateral LE Continue elevation of legs while in bed Continue IV abx as per ID Podiatry will continue to follow <Soto Griffith - Last Filed: 12/30/17 14:44> Objective - Vital Signs/Intake and Output Vital Signs (last 24 hours): Temp Pulse Resp BP Pulse Ox 98.0 F 75 18 130/57 L 99 04/27/18 06:00 12/30/17 08:24 12/30/17 06:00 12/30/17 09:55 12/30/17 06:00 - Medications Medications: Current Medications Allopurinol (Zyloprim) 300 mg PO QAM FISH PRN Reason: Protocol Last Admin: 12/30/17 09:57 Dose: 300 mg Aspirin (Aspirin Chewable) 81 mg PO 0800 FISH PRN Reason: Protocol Last Admin: 12/30/17 08:24 Dose: 81 mg Atorvastatin Calcium (Lipitor) 20 mg PO DIN FISH PRN Reason: Protocol Last Admin: 12/29/17 17:31 Dose: 20 mg Betamethasone/Clotrimazole (Lotrisone) 0 ml TOP BID [facility] Last Admin: 12/30/17 09:56 Dose: 1 applic Famotidine (Pepcid) 20 mg PO HS FISH PRN Reason: Protocol Last Admin: 12/29/17 21:31 Dose: 20 mg Furosemide (Lasix) 40 mg IVP DAILY FISH PRN Reason: Protocol Last Admin: 12/30/17 09:55 Dose: 40 mg Insulin Detemir (Levemir) 20 unit SC ACBHS FISH PRN Reason: Protocol Last Admin: 12/30/17 07:39 Dose: Not Given Insulin Human Lispro (Humalog) 10 units SC ACBD FISH PRN Reason: Protocol Last Admin: 12/30/17 07:39 Dose: Not Given Metoclopramide HCl (Reglan) 5 mg PO 0600,1130,1630,2200 [facility] Last Admin: 12/30/17 12:30 Dose: 5 mg Metoprolol Tartrate (Lopressor) 50 mg PO 0800,1800 FISH PRN Reason: Protocol Last Admin: 12/30/17 08:24 Dose: 50 mg Ondansetron HCl (Zofran Tab) 4 mg PO Q6 PRN PRN Reason: Nausea/Vomiting Last Admin: 12/27/17 09:07 Dose: 4 mg Pantoprazole Sodium (Protonix Ec Tab) 40 mg PO 0600 FISH PRN Reason: Protocol Last Admin: 12/30/17 05:20 Dose: 40 mg Pyridoxine HCl (Vitamin B6 50 Mg Tab) 100 mg PO DAILY [facility] Last Admin: 12/30/17 09:57 Dose: 100 mg Silver Sulfadiazine (Silvadene 1% 25 Gm) 0 gm TP DAILY FISH PRN Reason: Protocol Last Admin: 12/30/17 09:57 Dose: 1 gm - Labs Labs: 12/30/17 06:45 12/29/17 07:00 Attending/Attestation - Attestation I have personally seen and examined this patient.: Yes I have fully participated in the care of the patient.: Yes I have reviewed all pertinent clinical information, including history, physical exam and plan: Yes
--- NOTE | 2017-12-30 15:39 | PN ---
DATE: 12/30/2017 SUBJECTIVE: The patient is 72 years old, was admitted because of worsening bilateral leg swelling, infection, was taken care by giving IV antibiotics and local wound care, doing well, sent to TCU to complete course of antibiotic, wound care and physical therapy. Stay in TCU was uneventful, being discharged today.. PHYSICAL EXAMINATION: GENERAL: He is awake, alert, oriented, communicative. VITAL SIGNS: He is afebrile, pulse 75, respirations 18, and blood pressure 130/57. LUNGS: Bilateral good airflow. No rhonchi or crackle. HEART: S1 and S2 audible. ABDOMEN: Soft, obese, and nontender. No rebound. No guarding. NEUROLOGICAL: He is awake, alert, oriented, communicative. EXTREMITIES: Bilateral leg, he still has erythema with tissue, chronic stasis dermatitis, but swelling has definitely gone down and erythema has improved. LABORATORY EXAMINATION: WBC is 2.5, hemoglobin 9.3, hematocrit 27.2, and platelets of 72. Chemistry: Sodium of 140, potassium 3.9, Blood sugar is 112. ASSESSMENT: 1. Bilateral leg cellulitis. 2. Hypertension. 3. Hyperlipidemia. 4. Deconditioning and difficulty walking. 5. Bilateral feet fungal infection of toes, toenail. 6. Hepatocellular carcinoma, status post arterial embolization. PLAN: The patient is being discharged home. He will resume his medication including aspirin, allopurinol, Zocor, pyridoxine, omeprazole, metoprolol, and Losartan. He is on Lantus 38 units twice a day, Lasix 40 mg daily, and ferrous sulfate. He will follow up in office and he will get endoscopy as outpatient and MRI of the liver as outpatient. Pierre Holt MD
--- NOTE | 2017-12-30 17:07 | PN ---
DATE: 12/30/2017 This is [facility] visit on TCU. For Dr. Swenson. SUBJECTIVE: The patient is a 72-year-od male, seen sitting up in bed, anxious for discharge later this afternoon. He reports with the patient in no acute distress. Reporting that his legs are better with and without Gadolinium had been recommended as an outpatient in the near future as this is not done on the TCU floor as per insurance issues. Otherwise, the patient is in no acute distress with his medicines to continue as per Dr. Holt, his attending physician. 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 He is now significantly improved in that respect, also suffers from chronic kidney disease and cirrhosis of the liver and deconditioning. OBJECTIVE PHYSICAL EXAMINATION: VITAL SIGNS: Temperature 98, pulse 75, respirations 18, blood pressure 130/57, pulse ox 99%. HEENT: Unremarkable except for poor dentition. NECK: Supple. HEART: Regular rate. LUNGS: Minimal decreased breath sounds at the bases. ABDOMEN: Obese, soft, nontender with a paraumbilical hernia. EXTREMITIES: +1 edema with chronic stasis dermatitis with ecchymotic purpuric changes, slowing improving. Seen by Dr. Griffith of Podiatry earlier today, the patient reports with dressings intact. NEUROLOGIC: Awake, alert and oriented. SKIN: Otherwise, warm and dry except as above. LABORATORY DATA: The patient's labs were done. White blood cell count 32.5 with an absolute neutrophil count of 1.02, hemoglobin 9.3, hematocrit of 27.2, platelet count of 72,000 with a chem metabolic panel showing a BUN of 38, creatinine of 1.6. The patient had a peripheral slide review of his blood done. The report is that of smear review showing red blood cells normocytic with normochromic with slightly anisocytosis, few ovalocytes seen. No schistocytes present. Platelets are slightly reduced in number. No immature cells identified. ASSESSMENT: The assessment for this patient is that of bilateral leg cellulitis with peripheral vascular disease and chronic stasis dermatitis with +1 edema; hepatocellular carcinoma, status post embolization; neutropenia; deconditioning; diabetes mellitus; hypertension; sequestration thrombocytopenia; obesity. PLAN: The plan for this patient is above, to continue present medical regimen as per Dr. Holt with MRI with and without Gadolinium to be recommended of the abdomen as an outpatient. We will also recommend neutropenic diet in the interim with repeat labs to be done next week with followup with Dr. Swenson in the office in 5-7 days or earlier. This is a complex patient with a comprehensive medically necessary and appropriate visit carried out in excess of 15 minutes [id number] time with the patient, labs and test were reviewed. William Alcocer MD
[2017-12-30 17:18] VITALS: BP 119/69; PULSE 60
[2017-12-30 18:06] VITALS: RESP 16; TEMP 98.3; O2SAT 100
== END 2017-12-30 18:10 | disposition home or self-care (01) | DRG 603 ==
LOC: TRCU 20:49
PROVIDERS: ADMIT Internal Medicine; ATTEND Internal Medicine
PROC: F07Z9FZ Gait Training/Functional Ambulation Treatment using Assistive, Adaptive, Supportive or Protective Equipment (ICD-10-PCS; principal; 2017-12-23)
PROC: F08Z2ZZ Grooming/Personal Hygiene Treatment (ICD-10-PCS; 2017-12-28)
DX: L03.115 Cellulitis of right lower limb (principal); C22.0 Liver cell carcinoma; I83.218 Varicose veins of right lower extremity with both ulcer of other part of lower extremity and inflammation; I83.228 Varicose veins of left lower extremity with both ulcer of other part of lower extremity and inflammation; L97.819 Non-pressure chronic ulcer of other part of right lower leg with unspecified severity; L97.829 Non-pressure chronic ulcer of other part of left lower leg with unspecified severity; K76.6 Portal hypertension; R26.2 Difficulty in walking, not elsewhere classified; L03.116 Cellulitis of left lower limb; I89.0 Lymphedema, not elsewhere classified; E11.51 Type 2 diabetes mellitus with diabetic peripheral angiopathy without gangrene; D64.9 Anemia, unspecified; K74.60 Unspecified cirrhosis of liver; K75.81 Nonalcoholic steatohepatitis (NASH); I25.10 Atherosclerotic heart disease of native coronary artery without angina pectoris; I12.9 Hypertensive chronic kidney disease with stage 1 through stage 4 chronic kidney disease, or unspecified chronic kidney disease; E11.22 Type 2 diabetes mellitus with diabetic chronic kidney disease; N18.9 Chronic kidney disease, unspecified; K29.70 Gastritis, unspecified, without bleeding; E11.43 Type 2 diabetes mellitus with diabetic autonomic (poly)neuropathy; K31.84 Gastroparesis; D69.6 Thrombocytopenia, unspecified; B35.3 Tinea pedis; D72.819 Decreased white blood cell count, unspecified; N40.0 Benign prostatic hyperplasia without lower urinary tract symptoms; E78.5 Hyperlipidemia, unspecified; E66.9 Obesity, unspecified; Z68.32 Body mass index [BMI] 32.0-32.9, adult; Z90.49 Acquired absence of other specified parts of digestive tract; Z79.4 Long term (current) use of insulin

== ENCOUNTER → 2018-08-21 | Day surgery (SDC) | payer MEDICARE, BC ==
[2018-03-02 08:37] VITALS: BMI 36.3
[~2018-08-21] MED LIST: Lidocaine 1% Inj (20ml) ONE; Propofol 10 mg/ml Inj (20 ML) ONE; Sodium Chloride 0.9% 1,000 ML IV SCH; cefTRIAXone (Rocephin) 1 gm Inj ONE
[2018-08-21 10:40] LABS: BASO # 0.03 K/mm3 (0.0-2.0); BASO % 0.7 % (0.0-3.0); EOS # 0.4 (0.0-0.7); EOS % 8.9 % (1.5-5.0); GRAN # 2.49 (1.4-6.5); HEMOGLOBIN 9.8 g/dL (14.0-18.0); LYMPH # 1.2 (1.2-3.4); MEAN CELL VOLUME 99.3 fl (80.0-105.0); MEAN CORPUSCULAR HEMOGLOBIN 32.8 pg (25.0-35.0); MONO # 0.5 (0.1-0.6); MONO % 10.4 % (1.0-6.0); RBC 2.99 10^6/uL (3.5-6.1); RED CELL DISTRIBUTION WIDTH 14.4 % (11.5-14.5); WHITE BLOOD COUNT 4.6 10^3/uL (4.5-11.0)
[2018-08-21 10:50] LABS: INR 1.19; PARTIAL THROMBOPLASTIN TIME 31.6 Seconds (25.1-36.5); PROTHROMBIN TIME 13.7 SECONDS (9.4-12.5)
[2018-08-21 12:51] VITALS: BP 119/54; PULSE 69; RESP 18; TEMP 97.6; O2SAT 99
== END | disposition home or self-care (01) ==
LOC: ENDO 09:36
PROVIDERS: ATTEND Internal Medicine Gastroenterology
DX: D64.9 Anemia, unspecified (principal); K76.6 Portal hypertension; K31.89 Other diseases of stomach and duodenum; K44.9 Diaphragmatic hernia without obstruction or gangrene; R63.4 Abnormal weight loss; K74.60 Unspecified cirrhosis of liver; R11.0 Nausea
CPT/HCPCS: 36415; 43235; 82948; 85025; 85610; 85730; J0696; J2704; J7030

== ENCOUNTER 2018-12-28 07:15 | Inpatient (IN) | payer MEDICARE, BC ==
[2018-12-28 07:26] VITALS: BMI 34.7
[2018-12-28 08:31] LABS: BASO # 0.04 K/mm3 (0.0-2.0); BASO % 0.8 % (0.0-3.0); EOS # 0.4 (0.0-0.7); HEMOGLOBIN 10.6 g/dL (14.0-18.0); LYMPH # 1.4 (1.2-3.4); LYMPH % 28.6 % (22.0-35.0); MEAN CELL VOLUME 97.2 fl (80.0-105.0); MEAN CORPUSCULAR HEMOGLOBIN 32.6 pg (25.0-35.0); MEAN CORPUSCULAR HGB CONC 33.5 g/dl (31.0-37.0); MEAN PLATELET VOLUME 11.8 fl (7.0-11.0); MONO # 0.3 (0.1-0.6); MONO % 6.8 % (1.0-6.0); RBC 3.25 10^6/uL (3.5-6.1); RED CELL DISTRIBUTION WIDTH 14.6 % (11.5-14.5)
--- NOTE | 2018-12-28 08:33 | ED PDOC ---
Arrival/HPI - General Chief Complaint: Dizziness/Lightheaded Time Seen by Provider: 12/28/18 07:49 Historian: Patient - History of Present Illness Narrative History of Present Illness (Text): 12/28/18 08:19 73 year old M with pmh of chronic lymphedema b/l LE, Hepatocellular carcinoma, hypertension and CAD presents via EMS complaining of intermittent dizziness and nausea x2 wks but worse around 05:00 this morning. Patient reports feeling dizzy and nauseous after standing up this morning. He then returned to bed which relieved some symptoms but decided to call EMS when symptoms persisted 2hrs since onset. Patient notes symptoms exacerbate when standing and slight relief when sitting or lying down. Recalls no history of present symptoms. He endorses being compliant with Lasix medication and notes taking 80mg instead of regular 40mg. Baseline dyspnea on exertion. Patient denies any fevers, chills, headache, chest pain, cough, diaphoresis, abdominal pain, vomiting, diarrhea, back pain, neck pain, or any other complaint. PMD: Dr. Yanet Cedeno Time/Duration: 4-6 hours Symptom Onset: Sudden Symptom Course: Unchanged Activities at Onset: Light Context: Home Past Medical History - Provider Review Nursing Documentation Reviewed: Yes - Tetanus Immunization Tetanus Immunization: Unknown - Cardiac Hx Hypertension: Yes Hx Pacemaker: No - Pulmonary Hx Respiratory Disorders: No - Neurological Hx Paralysis: No - HEENT Hx HEENT Disorder: No - Renal Hx Renal Disorder: No - Endocrine/Metabolic Hx Diabetes Mellitus Type 2: Yes - Hematological/Oncological Hx Blood Transfusions: Yes Hx Blood Transfusion Reaction: No - Integumentary Hx Dermatological Disorder: No - Musculoskeletal/Rheumatological Hx Musculoskeletal Disorders: Yes - Gastrointestinal Hx Gastrointestinal Disorders: No - Genitourinary/Gynecological Hx Genitourinary Disorders: No - Psychiatric Hx Emotional Abuse: No Hx Physical Abuse: No Hx Substance Use: No - Surgical History Other/Comment: partial colectomy 2003 - Anesthesia Hx Anesthesia Reactions: No Hx Malignant Hyperthermia: No - Suicidal Assessment Feels Threatened In Home Enviroment: No Family/Social History - Physician Review Nursing Documentation Reviewed: Yes Family/Social History: Unknown Family HX Smoking Status: Never Smoked Hx Alcohol Use: No Hx Substance Use: No Hx Substance Use Treatment: No Allergies/Home Meds Allergies/Adverse Reactions: Allergies No Known Allergies Allergy (Verified 12/28/18 07:31) Home Medications: Home Meds Medication Instructions Recorded Confirmed Cholecalciferol [Vitamin D 1000 IU] 1,000 iu PO QAM 04/11/12 12/28/18 Multivitamin [Multi Vitamins] 1 tab PO QAM 04/11/12 12/28/18 Omeprazole [Prilosec] 20 mg PO QOTHERDAY 04/11/12 12/28/18 Allopurinol [Zyloprim] 300 mg PO QAM 06/14/16 12/28/18 Aspirin [Aspirin Chewable] 81 mg PO MWF 06/14/16 12/28/18 Furosemide [Lasix] 40 mg PO DAILY 06/14/16 12/28/18 Insulin Glargine, Recombina 38 unit SQ QPM 06/14/16 12/28/18 [Lantus] Insulin Lispro [Humalog (Insulin 13 unit SQ WM 06/14/16 12/28/18 Lispro)] Metoprolol Tartrate [Lopressor] 100 mg PO AMHS 06/14/16 12/28/18 Pyridoxine [Vitamin B6] 100 mg PO DAILY 06/14/16 12/28/18 Simvastatin [Zocor] 40 mg PO DAILY 06/14/16 12/28/18 Ferrous Sulfate [Feosol] 324 mg PO QOTHERDAY 12/19/17 12/28/18 Insulin Glargine, Recombina 35 unit SC QAM 03/02/18 12/28/18 [Lantus] Losartan Potassium [Cozaar] 100 mg PO DAILY 08/17/18 12/28/18 Review of Systems - Physician Review All systems were reviewed & negative as marked: Yes - Review of Systems Constitutional: absent: Fevers ENT: absent: Hearing Changes, Rhinorrhea Respiratory: absent: SOB, Cough Cardiovascular: ADAMSON (baseline). absent: Chest Pain, Syncope Gastrointestinal: Nausea. absent: Abdominal Pain, Diarrhea, Vomiting Musculoskeletal: absent: Arthralgias, Back Pain, Neck Pain, Myalgias Skin: absent: Cellulitis Neurological: Dizziness. absent: Headache Physical Exam - Physical Exam Narrative Physical Exam (Text): 12/28/18 08:40 Gen: VS reviewed, alert, well developed, well nourished, nontoxic, mild distress. ENT: normal pharynx. Eye: EOMI, PERRL. Horizontal Nystagmus Neck: no JVD, supple, no adenopathy. CV: regular rate, regular rhythm, no rubs, no murmur, no gallops, S1, S2, pulses equal and strong. Pulm: no distress, clear to auscultation, no wheeze, no rhonchi, breath sounds equal, no rales. Abd: soft, nontender, no guarding, no rebound, no rigidity, normal bowel sounds. Ext: B/L Pedal edema (baseline) Skin: good color, no rash, no cyanosis. Psych: responds appropriately to questions, normal affect. Neuro: oriented x 3, CN2-12 intact grossly, motor intact, sensation intact. Finger to nose normal Vital Signs Temp Pulse Resp BP Pulse Ox 12/28/18 07:27 98.3 F 78 18 153/62 H 98 Medical Decision Making ED Course and Treatment: 12/28/18 08:33 Impression: 73 year old M presents via EMS complaining of intermittent dizziness and nausea x2 wks but worse around 05:00 this morning. Patient notes symptoms exacerbate when standing and slight relief when sitting or lying down. Recalls no history of present symptoms. He endorses being compliant with Lasix medication and notes taking 80mg instead of regular 40mg. Baseline dyspnea on exertion. Plan: -- CT Head w/o contrast -- EKG -- Antivert -- Reassess and disposition Prior Visits: Notes and results from previous visits were reviewed. Progress Notes: 12/28/18 15:14 patient reported temporary improvement of vertigo after dose of meclizine but returned. it was at that time the decision was made to admit. furthermore, the patient has physical limitations due to swelling in the legs and a current bout of vertigo would put the patient at a significantly increased risk for fall.admit accepted to [facility]. - RAD Interpretation Narrative RAD Interpretations (Text): 12/28/18 10:[address] -- No acute intracranial findings. Supply Room Clerk: Radiologist - EKG Interpretation EKG Interpretation (Text): 12/28/18 09:07 ekg my read: nser at 65 bpm, rbbb, no ectopy, lafb Interpreted by ED Physician: Yes - Medication Orders Current Medication Orders: Discontinued Medications Meclizine HCl (Antivert) 25 mg PO STAT STA Stop: 12/28/18 08:11 - Scribe Statement The provider has reviewed the documentation as recorded by the Meera Morris All medical record entries made by the Meera were at my direction and personally dictated by me. I have reviewed the chart and agree that the record accurately reflects my personal performance of the history, physical exam, medical decision making, and the department course for this patient. I have also personally directed, reviewed, and agree with the discharge instructions and disposition. Disposition/Present on Arrival - Present on Arrival Any Indicators Present on Arrival: No History of DVT/PE: No History of Uncontrolled Diabetes: Yes Urinary Catheter: No History of Decub. Ulcer: No History Surgical Site Infection Following: None - Disposition Have Diagnosis and Disposition been Completed?: Yes Diagnosis: Vertigo, Lymphedema Disposition: HOSPITALIZED Disposition Time: 15:16 Patient Plan: Admission Condition: STABLE
[2018-12-28 08:44] LABS: ALB/GLOB RATIO 0.7 (1.1-1.8); ALBUMIN 3.2 g/dL (3.0-4.8); CALCIUM 9.6 mg/dL (8.4-10.5)
--- NOTE | 2018-12-28 09:54 | CT ---
Date of service: 12/28/2018 PROCEDURE: CT HEAD WITHOUT CONTRAST. HISTORY: acute vertigo COMPARISON: None available. TECHNIQUE: Axial computed tomography images were obtained through the head/brain without intravenous contrast. Radiation dose: Total exam DLP = 979.76 mGy-cm. This CT exam was performed using one or more of the following dose reduction techniques: Automated exposure control, adjustment of the mA and/or kV according to patient size, and/or use of iterative reconstruction technique. FINDINGS: HEMORRHAGE: No intracranial hemorrhage. BRAIN: No mass effect or edema. Mild atrophy. VENTRICLES: Unremarkable. No hydrocephalus. CALVARIUM: Unremarkable. PARANASAL SINUSES: Unremarkable as visualized. No significant inflammatory changes. MASTOID AIR CELLS: Unremarkable as visualized. No inflammatory changes. OTHER FINDINGS: None. IMPRESSION: No acute intracranial findings
--- NOTE | 2018-12-28 17:16 | CARD ---
APPROVED REPORT Date of service: 12/28/2018 EKG Measurement Heart [id number] <Conclusion> Normal sinus rhythm Left axis deviation Right bundle branch block Septal infarct, age undetermined Abnormal ECG
[2018-12-28] MEDS: Insulin Lispro 1 UNITS/0.01 ML SC SCH ×2 (17:32→17:45)
[2018-12-28] MEDS: Insulin Detemir 100 units/ml Vial (Levemir) SC SCH (17:33)
[2018-12-28] MEDS: Sodium Chloride 0.45% 1,000 ML IV SCH (17:35)
[2018-12-28] MEDS ORDERED: Pantoprazole 40 mg EC Tab PO STA (20:03)
--- NOTE | 2018-12-28 21:08 | CP.PCM.CON ---
History of Present Illness - History of Present Illness History of Present Illness: General surgery consult note for Dr. Trish De La Rosa, PGY-2 Pt seen/examined at bedside 73yo M w/multiple medical co-morbidities as below consulted for evaluation of LE w/chronic lymphedema x 1 yr. Patient reports he had onset of chronic lymphedema after 2nd embolization and ablation of 2nd hepatocellular carcinoma tumor t reatment. Patient has been treating LE w/compression via Unna boots and zinc oxide wraps for the skin weeping with a visiting nurse at home for the past month and intermittently with intermittent resolution since onset. Patient reports pain in LE, first on left, now on right. Pt reports recent diagnosis of 3rd Hepatocellular carcinoma tumor, currently under the care of Dr. Swenson. Admits to unintentional wt loss of 50lbs, blisters over LE skin, swelling of LE, skin changes of LE. Originally admitted to hospital for dizziness and weakness. Denies F & C, SOB, CP, changes in bowel or bladder habits, cough, rhinorrhea, sore throat, other complaints at this time. PMH: Hx of hepatitis w/liver cirrhosis, hepatocellular carcinoma x 3, chronic lymphedema of LE x 1 yr, HTN, CAD, DM, incisional hernia, nephrolithiasis on Allopurinol, hx of anemia and thrombcytopenia, hx ZAIDA PSH: Sigmoidectomy w/ostomy s/p reversal (2002), embolization & ablation of hepatocellular carcinoma (done 2x @ [place]), varicose vein sclerosing therapy, cataract surgery All: NKDA SH: denies ETOH, tobacco or illicit drug use FH: Father had pancreatic CA, mother had breast CA, brother had duodenal CA, sister has kidney tumors PMD: Dr. Holt outpatient trauma manager: Gloria Payne Review of Systems - Review of Systems All systems: reviewed and no additional remarkable complaints except - Constitutional Constitutional: Weakness. absent: Chills, Fever, Headache - EENT Eyes: absent: Change in Vision Ears: Dizziness Nose/Mouth/Throat: absent: Sore Throat - Cardiovascular Cardiovascular: absent: Chest Pain - Respiratory Respiratory: absent: Cough - Gastrointestinal Gastrointestinal: absent: Abdominal Pain, Change in Bowel Habits, Constipation, Diarrhea, Nausea, Vomiting - Genitourinary Genitourinary: absent: Change in Urinary Stream - Musculoskeletal Musculoskeletal: absent: Back Pain - Integumentary Integumentary: Skin Pain (LE), Swelling (LE). absent: Skin Ulcer - Neurological Neurological: Weakness (generalized) - Psychiatric Psychiatric: absent: Change in Appetite Past Patient History - Tetanus Immunizations Tetanus Immunization: Unknown - Past Social History Smoking Status: Never Smoked - CARDIAC Hx Hypertension: Yes Hx Pacemaker: No - PULMONARY Hx Respiratory Disorders: No - NEUROLOGICAL Hx Paralysis: No - HEENT Hx HEENT Problems: No - RENAL Hx Chronic Kidney Disease: No - ENDOCRINE/METABOLIC Hx Diabetes Mellitus Type 2: Yes - HEMATOLOGICAL/ONCOLOGICAL Hx Blood Transfusions: Yes Hx Blood Transfusion Reaction: No - INTEGUMENTARY Hx Dermatological Problems: No - MUSCULOSKELETAL/RHEUMATOLOGICAL Hx Musculoskeletal Disorders: Yes - GASTROINTESTINAL Hx Gastrointestinal Disorders: No - GENITOURINARY/GYNECOLOGICAL Hx Genitourinary Disorders: No - PSYCHIATRIC Hx Emotional Abuse: No Hx Physical Abuse: No Hx Substance Use: No - SURGICAL HISTORY Other/Comment: partial colectomy 2002 - ANESTHESIA Hx Anesthesia Reactions: No Hx Malignant Hyperthermia: No Meds Allergies/Adverse Reactions: Allergies Allergy/AdvReac Type Severity Reaction Status Date / Time No Known Allergies Allergy Verified 12/28/18 07:31 - Medications Medications: Current Medications Allopurinol (Zyloprim) 300 mg PO QAM [facility] Aspirin (Aspirin Chewable) 81 mg PO MWF [facility] Atorvastatin Calcium (Lipitor) 20 mg PO DIN [facility] Last Admin: 12/28/18 17:34 Dose: 20 mg Sodium Chloride (Sodium Chloride 0.45%) 1,000 mls @ 60 mls/hr IV .[id number] [facility] Last Admin: 12/28/18 17:35 Dose: 60 mls/hr Insulin Detemir (Levemir) 35 unit SC QAM [facility] Insulin Detemir (Levemir) 38 unit SC QPM [facility] Insulin Human Lispro (Humalog) 13 units SC WM [facility] Last Admin: 12/28/18 17:45 Dose: Not Given Insulin Human Lispro (Humalog Med) 0 units SC ACHS [facility]; Protocol Losartan Potassium (Cozaar) 100 mg PO DAILY [facility] Last Admin: 12/28/18 16:20 Dose: 100 mg Meclizine HCl (Antivert) 12.5 mg PO TID [facility] Last Admin: 12/28/18 17:31 Dose: 12.5 mg Metoprolol Tartrate (Lopressor) 100 mg PO AMHS FISH Physical Exam - Constitutional Appears: Non-toxic, No Acute Distress - Head Exam Head Exam: ATRAUMATIC, NORMAL INSPECTION, NORMOCEPHALIC - Eye Exam Eye Exam: EOMI, Normal appearance - ENT Exam ENT Exam: Mucous Membranes Moist, Normal Exam - Neck Exam Neck exam: Positive for: Normal Inspection - Respiratory Exam Respiratory Exam: Clear to Auscultation Bilateral, NORMAL BREATHING PATTERN. absent: Rales, Rhonchi, Wheezes, Respiratory Distress - Cardiovascular Exam Cardiovascular Exam: REGULAR RHYTHM, +S1, +S2 - GI/Abdominal Exam GI & Abdominal Exam: Hernia (incisional, midline), Soft. absent: Distended (obese), Firm, Guarding, Rebound, Rigid, Tenderness Additional comments: well healed midline incision with 3 deep holes, well healed LLQ incision - Extremities Exam Extremities exam: Positive for: pedal edema. Negative for: normal inspection, tenderness Additional comments: B/L LE edema R>L Skin grossly dry with cracks, thickening, skin discoloration/darkening, non tender - Neurological Exam Neurological exam: Alert, CN II-XII Intact, Oriented x3 - Psychiatric Exam Psychiatric exam: Normal Affect, Normal Mood - Skin Skin Exam: Dry, Intact, Normal Color, Warm Additional comments: Excluding LE - see extremity exam for skin changes Results - Vital Signs Recent Vital Signs: Last Vital Signs Temp 98.3 F 12/28/18 07:27 Pulse 89 12/28/18 16:16 Resp 18 12/28/18 16:16 BP 148/72 12/28/18 16:16 Pulse Ox 97 12/28/18 16:16 - Labs Result Diagrams: 12/28/18 08:10 12/28/18 08:10 Labs: Laboratory Results - last 24 hr 12/28/18 12/28/18 08:10 08:10 WBC 5.0 RBC 3.25 L Hgb 10.6 L Hct 31.6 L MCV 97.2 MCH 32.6 MCHC 33.5 RDW 14.6 H Plt Count 147 MPV 11.8 H Neut % (Auto) 56.8 Lymph % (Auto) 28.6 [place] % (Auto) 6.8 H Eos % (Auto) 7.0 H Baso % (Auto) 0.8 Lymph # (Auto) 1.4 [place] # (Auto) 0.3 Eos # (Auto) 0.4 Baso # (Auto) 0.04 Absolute Neuts (auto) 2.86 Sodium 140 Potassium 4.2 Chloride 106 Carbon Dioxide 27 Anion Gap 11 BUN 51 H Creatinine 1.6 H Est GFR ( Amer) 51 Est GFR (Non-Af Amer) 42 Random Glucose 159 H Calcium 9.6 Total Bilirubin 0.6 AST 58 ALT 29 Alkaline Phosphatase 114 Total Protein 7.5 Albumin 3.2 Globulin 4.3 Albumin/Globulin Ratio 0.7 L Assessment & Plan - Assessment and Plan (Free Text) Assessment: 73M w/multiple medical co-morbidities consulted for evaluation of LE chronic lymphedema in setting of hepatocellular carcinoma Plan: Elevate LE Pain control PRN Compression wrappings w/SAMUEL bandages Further recommendations pending attending evaluation Further care as per primary team APRIL De La Rosa, PGY-2 - Date & Time Date: 12/28/18 Time: 21:13
[2018-12-28] MEDS: Insulin Lispro (humaLOG) MEDIUM Coverage SC SCH (22:40)
[2018-12-28] MEDS ORDERED: Pneumococcal 23-Valent Vaccine IM ONE (23:24)
--- NOTE | 2018-12-29 01:11 | HP ---
DATE OF EXAM: 12/28/2018 HISTORY OF PRESENT ILLNESS: The patient is a 73-year-old known to me from multiple previous admissions, came to emergency room because of persistent dizziness. He stated when he moves his head and when he lay down, he was feeling that things are spinning around. He does admit that yesterday, he found that his legs were swollen, so he took extra Lasix and he did not eat anything since last night. Patient is being placed on observation to monitor his cardiac status. He denies any nausea or vomiting. He does complain of decreased appetite. No abdominal pain. No diarrhea. PAST MEDICAL HISTORY: Significant for; 1. Insulin-dependent diabetes. 2. History of hypertension. 3. History of CA liver status post... 4. History of hepatocellular carcinoma status post intraarterial embolization of hepatocellular CA. 5. History of cirrhosis liver. 6. Chronic anemia. 7. Chronic renal insufficiency. 8. Bilateral stasis dermatitis with intermittent cellulitis. ALLERGIES: HE IS NOT ALLERGIC TO ANY MEDICATION. MEDICATIONS AT HOME: He is on B6 1000 mg daily, Lantus 38 units every evening, ferrous sulfate 325 mg daily, aspirin 81 daily, Zocor 40 mg daily, omeprazole 20 mg daily, multivitamin, losartan 100 daily, Lasix 40 mg daily, allopurinol 300 daily, metoprolol 100 mg daily. SOCIAL HISTORY: He lives by himself. He had a sister who because of chronic renal failure and she was diabetic. REVIEW OF SYSTEMS: Generalized weakness, bilateral leg swelling. PHYSICAL EXAMINATION: GENERAL: He is awake, alert, able to communicate. VITAL SIGNS: Afebrile, pulse 89, respirations 18, blood pressure 148/72. LUNGS: Bilateral fair airflow. No rhonchi or crackles. HEAD AND NECK: He has dry oral mucosa. Pale conjunctiva. No lymphadenopathy. Nonicteric sclera. HEART: S1 and S2, audible. ABDOMEN: Soft, obese, nontender. No rebound. No guarding. NEUROLOGIC: Patient is awake and alert, able to communicate. EXTREMITIES: Moves all extremities. Bilateral leg, has pressured bandage applied on it. LABORATORY DATA: WBC is 5, hemoglobin 10.6, hematocrit 31.6, and platelets of 147. Chemistry; sodium 140, potassium 4.2, chloride 106, CO2 of 26, BUN 51, creatinine 1.6. Blood sugar of 159. ASSESSMENT: 1. Dizziness probably secondary to dehydration versus vertigo. 2. Chronic kidney disease. 3. Hypertension. 4. Hepatocellular carcinoma status post embolization. 5. Chronic stasis dermatitis. 6. Insulin-dependent diabetes. PLAN: Patient will be placed on observation. We will give him gentle hydration. Hold his Lasix for today. Dr. Loomis to evaluate his leg wound. Monitor his blood sugar. We will follow up patient in the a.m. Start with physical therapy also. Pierre Holt MD
[2018-12-29] MEDS: Pantoprazole 40 mg EC Tab PO SCH (05:41)
--- NOTE | 2018-12-29 07:50 | CP.PCM.PN ---
Subjective - Date & Time of Evaluation Date of Evaluation: 12/29/18 Time of Evaluation: 07:50 - Subjective Subjective: PGY1 General progress note for Dr. Arellano Pt seen and examined at bedside. Pt is resting comfortably. Pt has no acute complaints. Denies fevers, chills, chest pain, sob, abdominal pain, n/v/d, numbness or tingling, headache, weakness, dizziness. Objective - Vital Signs/Intake and Output Vital Signs (last 24 hours): Temp Pulse Resp BP Pulse Ox 98.3 F 67 18 165/74 H 97 12/28/18 07:27 12/29/18 06:00 12/28/18 22:56 12/28/18 21:12 12/28/18 16:16 - Medications Medications: Current Medications Allopurinol (Zyloprim) 300 mg PO QAM [facility]CLUD[facility] Aspirin (Aspirin Chewable) 81 mg PO MWF [facility] Atorvastatin Calcium (Lipitor) 20 mg PO DIN [facility] Last Admin: 12/28/18 17:34 Dose: 20 mg Sodium Chloride (Sodium Chloride 0.45%) 1,000 mls @ 60 mls/hr IV .[id number] [facility]CLUDES [facility] Last Admin: 12/28/18 17:35 Dose: 60 mls/hr Insulin Detemir (Levemir) 35 unit SC QAM [facility]CLUD[facility] Insulin Detemir (Levemir) 38 unit SC QPM [facility]CLUD[facility] Insulin Human Lispro (Humalog) 13 units SC WM COUNT [facility]CLUDES [facility] Last Admin: 12/28/18 17:45 Dose: Not Given Insulin Human Lispro (Humalog Med) 0 units SC ACHS [facility]CLUD[facility]; Protocol Last Admin: 12/28/18 22:40 Dose: Not Given Losartan Potassium (Cozaar) 100 mg PO DAILY [facility] Last Admin: 12/28/18 16:20 Dose: 100 mg Meclizine HCl (Antivert) 12.5 mg PO TID [facility] Last Admin: 12/28/18 17:31 Dose: 12.5 mg Metoprolol Tartrate (Lopressor) 100 mg PO AMHS COUNT [facility]CLUDES [facility] Last Admin: 12/28/18 21:12 Dose: 100 mg Pantoprazole Sodium (Protonix Ec Tab) 40 mg PO 0630 [facility]CLUD[facility] Last Admin: 12/29/18 05:41 Dose: 40 mg - Labs Labs: 12/28/18 08:10 12/28/18 08:10 - Constitutional Appears: Non-toxic, No Acute Distress - Head Exam Head Exam: ATRAUMATIC, NORMAL INSPECTION - Eye Exam Eye Exam: EOMI - ENT Exam ENT Exam: Mucous Membranes Moist - Respiratory Exam Respiratory Exam: Clear to Ausculation Bilateral, NORMAL BREATHING PATTERN - Cardiovascular Exam Cardiovascular Exam: REGULAR RHYTHM, +S1, +S2 - GI/Abdominal Exam GI & Abdominal Exam: Soft (obese), Hernia (midline incisional hernia). absent: Firm, Guarding, Rigid, Tenderness Additional comments: Well-healed midline incision with 3 deep holes, well-healed LLQ incision - Extremities Exam Extremities Exam: Pedal Edema (bilaterall, right greater than left.). absent: Tenderness Additional comments: Skin is dry, with thickening, discoloration/darkening - Neurological Exam Neurological Exam: Alert, Awake - Psychiatric Exam Psychiatric exam: Normal Affect, Normal Mood - Skin Skin Exam: Dry, Intact, Normal Color, Warm Additional comments: see extremity exam Assessment and Plan - Assessment and Plan (Free Text) Assessment: This is a 73 year old male with multiple medical co-morbidities consulted for ev aluation of LE chronic lymphedema in setting of hepatocellular carcinoma. 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 Follow up outpatient with Dr. Arellano for further vascular studies. Further management as per primary team Case discussed with Dr. Adan Gutierrez PGY1 Pager# [phone]
--- NOTE | 2018-12-29 10:06 | CP.PCM.CON ---
<Haris Gonzalez - Last Filed: 12/30/18 09:10> History of Present Illness - History of Present Illness History of Present Illness: Haris Gonzalez Heme/Onc Consult Note for Dr. Melendez 73yo male with past medical history of hepatitis w/liver cirrhosis, hepatocellular carcinoma, chronic lymphedema of LE , HTN, CAD, DM, incisional hernia, nephrolithiasis on Allopurinol, hx of anemia and thrombocytopenia presented with dizziness and nausea. Heme/Onc consulted for history of Liver CA. Denies F & C, SOB, CP, changes in bowel or bladder habits, cough, rhinorrhea, sore throat, other complaints at this time. PMH: Hx of hepatitis w/liver cirrhosis, hepatocellular carcinoma x 3, chronic lymphedema of LE x 1 yr, HTN, CAD, DM, incisional hernia, nephrolithiasis on Allopurinol, hx of anemia and thrombocytopenia, hx ZAIDA PSH: Sigmoidectomy w/ostomy s/p reversal (2002), embolization & ablation of hepatocellular carcinoma (done 2x @ [place]), varicose vein sclerosing therapy, cataract surgery All: NKDA SH: denies ETOH, tobacco or illicit drug use FH: Father had pancreatic CA, mother had breast CA, brother had duodenal CA, sister has kidney tumors PMD: Dr. Holt outpatient home health travel ot: [facility] Past Patient History - Tetanus Immunizations Tetanus Immunization: Unknown - Past Social History Smoking Status: Never Smoked - CARDIAC Hx Cardiac Disorders: Yes (cad) Hx Hypercholesterolemia: Yes Hx Hypertension: Yes Hx Peripheral Edema: Yes (+2 pitting edema ble) Other/Comment: circulation problems, lymphadema ble, cysts near liver and heart - PULMONARY Hx Respiratory Disorders: No - NEUROLOGICAL Hx Neurological Disorder: Yes (neuropathy) Other/Comment: pain to feet and legs - HEENT Hx HEENT Problems: Yes (eyeglasses, [place]) - RENAL Hx Chronic Kidney Disease: Yes (renal insufficiency) Hx Kidney Stones: Yes - ENDOCRINE/METABOLIC Hx Endocrine Disorders: Yes Hx Diabetes Mellitus Type 2: Yes - HEMATOLOGICAL/ONCOLOGICAL Hx Blood Disorders: Yes (thrombocytopenia sees dr melendez) Hx Anemia: Yes (H/O BLOOD TRANSFUSION,PLATELET PROBEMS,SEES DR. MELENDEZ.) Hx Cancer: Yes (liver ca dx 2016) Hx Cirrhosis: Yes Other/Comment: liver ca dx 2016 had embolization and ablation in 2016 of liver and radiation treatments, was dx again with 2nd liver tumor 2017 had embolization and ablation and radiation treatments again, then developed ble edema and severe blisters, & lymphadema, pt was dx with 3rd liver 2 months ago 2019 pt now refusiing radiation treatments because of lymphadema side effects - INTEGUMENTARY Hx Dermatological Problems: Yes Other/Comment: ble dry hard discolored dry thick skin to both lower extremities and feet, multiple brown freckle like spots to legs and brown areas of skin thighs/groin/ abd - MUSCULOSKELETAL/RHEUMATOLOGICAL Hx Falls: Yes (past) - GASTROINTESTINAL Hx Gastrointestinal Disorders: Yes (narrow colon, umbilical hernia, obese) Hx Gastroesophageal Reflux: Yes Hx Liver Failure: (liver ca dx 2015, portal htn,cirrhosis) Other/Comment: pt dx with narrow colon in 2002 first surgery a sigmoidectomy, 2nd sx colostomy, 3rd sx 2 months later colostomy reversal, poor appetite, weight loss 40 lbs in 3 months, gastric and colon polyps, partial gastropathy - GENITOURINARY/GYNECOLOGICAL Hx Genitourinary Disorders: Yes Hx Prostate Problems: Yes (bph) Other/Comment: hydrocele x 2, uses a bucket to void in - PSYCHIATRIC Hx Substance Use: No - SURGICAL HISTORY Hx Surgeries: Yes Other/Comment: colostomy reversal - ANESTHESIA Hx Anesthesia Reactions: No Hx Malignant Hyperthermia: No Meds Allergies/Adverse Reactions: Allergies Allergy/AdvReac Type Severity Reaction Status Date / Time No Known Allergies Allergy Verified 12/28/18 07:31 - Medications Medications: Current Medications Allopurinol (Zyloprim) 300 mg PO QAM [facility] Aspirin (Aspirin Chewable) 81 mg PO MWF [facility] Atorvastatin Calcium (Lipitor) 20 mg PO DIN [facility] Last Admin: 12/28/18 17:34 Dose: 20 mg Sodium Chloride (Sodium Chloride 0.45%) 1,000 mls @ 60 mls/hr IV .[id number] [facility] Last Admin: 12/28/18 17:35 Dose: 60 mls/hr Insulin Detemir (Levemir) 35 unit SC QAM [facility] Insulin Detemir (Levemir) 38 unit SC QPM [facility] Insulin Human Lispro (Humalog) 13 units SC WM [facility] Last Admin: 12/28/18 17:45 Dose: Not Given Insulin Human Lispro (Humalog Med) 0 units SC ACHS [facility]; Protocol Last Admin: 12/28/18 22:40 Dose: Not Given Losartan Potassium (Cozaar) 100 mg PO DAILY [facility] Last Admin: 12/28/18 16:20 Dose: 100 mg Meclizine HCl (Antivert) 12.5 mg PO TID [facility] Last Admin: 12/28/18 17:31 Dose: 12.5 mg Metoprolol Tartrate (Lopressor) 100 mg PO AMHS [facility] Last Admin: 12/28/18 21:12 Dose: 100 mg Pantoprazole Sodium (Protonix Ec Tab) 40 mg PO 0630 [facility] Last Admin: 12/29/18 05:41 Dose: 40 mg Results - Vital Signs Recent Vital Signs: Last Vital Signs Temp 98.3 F 12/28/18 07:27 Pulse 67 12/29/18 06:00 Resp 18 12/28/18 22:56 BP 165/74 H 12/28/18 21:12 Pulse Ox 97 12/28/18 16:16 - Labs Result Diagrams: 12/28/18 08:10 12/28/18 08:10 Labs: Laboratory Results - last 24 hr 12/28/18 12/29/18 21:22 08:19 POC Glucose (mg/dL) 117 H 122 H Assessment & Plan - Assessment and Plan (Free Text) Plan: 1. Liver CA-chronic -No need for imaging at this time -AST/ALT stable -follow as patient in clinic -further management as per primary team Further recs as per Dr. Melendez <Catarino Melendez P - Last Filed: 12/30/18 12:02> Meds - Medications Medications: Current Medications Allopurinol (Zyloprim) 300 mg PO QAM [facility] Last Admin: 12/30/18 09:25 Dose: 300 mg Aspirin (Aspirin Chewable) 81 mg PO MWF [facility] Last Admin: 12/29/18 10:17 Dose: 81 mg Atorvastatin Calcium (Lipitor) 20 mg PO DIN [facility] Last Admin: 12/29/18 17:36 Dose: 20 mg Clonidine HCl (Catapres) 0.1 mg PO TID PRN PRN Reason: sbp >150 Furosemide (Lasix) 40 mg IVP DAILY [facility] Insulin Detemir (Levemir) 35 unit SC QAM [facility] Last Admin: 12/30/18 09:24 Dose: 35 unit Insulin Detemir (Levemir) 38 unit SC QPM [facility] Last Admin: 12/29/18 17:35 Dose: Not Given Insulin Human Lispro (Humalog) 13 units SC WM [facility] Last Admin: 12/30/18 09:23 Dose: Not Given Insulin Human Lispro (Humalog Med) 0 units SC ACHS [facility]; Protocol Last Admin: 12/30/18 09:23 Dose: Not Given Losartan Potassium (Cozaar) 100 mg PO DAILY [facility] Last Admin: 12/30/18 09:23 Dose: 100 mg Meclizine HCl (Antivert) 12.5 mg PO TID [facility] Last Admin: 12/30/18 09:22 Dose: 12.5 mg Metoprolol Tartrate (Lopressor) 100 mg PO AMHS [facility] Last Admin: 12/30/18 09:24 Dose: 100 mg Pantoprazole Sodium (Protonix Ec Tab) 40 mg PO 0630 [facility] Last Admin: 12/30/18 05:35 Dose: 40 mg Results - Vital Signs Recent Vital Signs: Last Vital Signs Temp 97.7 F 12/30/18 06:00 Pulse 76 12/30/18 09:24 Resp 20 12/30/18 06:00 BP 185/72 H 12/30/18 09:24 Pulse Ox 97 12/30/18 06:00 - Labs Result Diagrams: 12/28/18 08:10 12/28/18 08:10 Labs: Laboratory Results - last 24 hr 12/29/18 12/29/18 12/29/18 16:26 18:11 21:27 POC Glucose (mg/dL) 53 L 112 H 72 12/30/18 12/30/18 07:35 11:27 POC Glucose (mg/dL) 81 127 H Assessment & Plan - Assessment and Plan (Free Text) Assessment: examined patient.Agree that at this time no new intervention is needed for his Hcc.Will follow him as out patient.
[2018-12-29] MEDS: Insulin Lispro 1 UNITS/0.01 ML SC SCH ×3 (10:18→17:35)
[2018-12-29] MEDS: Insulin Detemir 100 units/ml Vial (Levemir) SC SCH ×2 (10:19→17:35)
[2018-12-29] MEDS: Insulin Lispro (humaLOG) MEDIUM Coverage SC SCH ×4 (10:19→21:52)
--- NOTE | 2018-12-29 10:19 | CP.PCM.APN ---
Subjective - Date & Time of Evaluation Date of Evaluation: 12/29/18 Time of Evaluation: 10:16 - Subjective Subjective: pt seen and examined at bedside , pt sister in law present and physical therpaist at bedside to get patient OOB pt reports dizziness persists Review of Systems - Constitutional Constitutional: As Per HPI Objective - Vital Signs/Intake and Output Vital Signs (last 24 hours): Temp Pulse Resp BP Pulse Ox 98.3 F 67 18 165/74 H 97 12/28/18 07:27 12/29/18 06:00 12/28/18 22:56 12/28/18 21:12 12/28/18 16:16 - Medications Medications: Current Medications Allopurinol (Zyloprim) 300 mg PO QAM [facility] Aspirin (Aspirin Chewable) 81 mg PO MWF [facility] Atorvastatin Calcium (Lipitor) 20 mg PO DIN [facility] Last Admin: 12/28/18 17:34 Dose: 20 mg Sodium Chloride (Sodium Chloride 0.45%) 1,000 mls @ 60 mls/hr IV .[id number] [facility] Last Admin: 12/28/18 17:35 Dose: 60 mls/hr Insulin Detemir (Levemir) 35 unit SC QAM [facility] Insulin Detemir (Levemir) 38 unit SC QPM [facility] Insulin Human Lispro (Humalog) 13 units SC WM [facility] Last Admin: 12/28/18 17:45 Dose: Not Given Insulin Human Lispro (Humalog Med) 0 units SC ACHS [facility]; Protocol Last Admin: 12/28/18 22:40 Dose: Not Given Losartan Potassium (Cozaar) 100 mg PO DAILY [facility] Last Admin: 12/28/18 16:20 Dose: 100 mg Meclizine HCl (Antivert) 12.5 mg PO TID [facility] Last Admin: 12/28/18 17:31 Dose: 12.5 mg Metoprolol Tartrate (Lopressor) 100 mg PO AMHS [facility] Last Admin: 12/28/18 21:12 Dose: 100 mg Pantoprazole Sodium (Protonix Ec Tab) 40 mg PO 0630 [facility] Last Admin: 12/29/18 05:41 Dose: 40 mg - Labs Labs: 12/28/18 08:10 12/28/18 08:10 - Constitutional Appears: No Acute Distress - Head Exam Head Exam: ATRAUMATIC - Eye Exam Eye Exam: EOMI, PERRL Pupil Exam: NORMAL ACCOMODATION - Respiratory Exam Respiratory Exam: Decreased Breath Sounds, NORMAL BREATHING PATTERN - Cardiovascular Exam Cardiovascular Exam: REGULAR RHYTHM, +S1, +S2 - GI/Abdominal Exam GI & Abdominal Exam: Soft, Normal Bowel Sounds - Extremities Exam Additional comments: lymphedema bilaterally , BELTRAN, legs wrapped bilaterally with agustina bandages , NV intact distally - Neurological Exam Neurological Exam: Alert, Awake - Psychiatric Exam Psychiatric exam: Normal Affect, Normal Mood - Skin Skin Exam: Dry, Intact, Normal Color Assessment and Plan - Assessment and Plan (Free Text) Plan: ITS Impressions Head CT 12/28/18 08:34 IMPRESSION: No acute intracranial findings 73 yr old with pmh sig for hepatocellular carcinoma chronic lymphedema, htna d cad who preented with persistent vertigo now admitted for further mgmt with oncology, surgery consultation. pt undergoing workup for persistent vertigo. pt noted on Antivert regimen, will order orthostatic VS as well physical therapist recommending GINNY will continue to follow clinical course BPCI/TIC - BPCIA/TIC Educated pt/family on BPCIA/CIR/Med to Bed Programs: N/A Flyers given, including [facility] Beneficiary letter: N/A Pt/family verbalized understanding & agreed to program: N/A
[2018-12-29] MEDS: Sodium Chloride 0.45% 1,000 ML IV SCH (10:21)
--- NOTE | 2018-12-29 15:31 | PN ---
DATE: 12/29/2018 SUBJECTIVE: The patient is 73 years old, seen and examined, complains of generalized weakness, difficulty walking, has physical therapy evaluation. Recommending for subacute rehab. The patient lives alone. He has multiple comorbidities. PHYSICAL EXAMINATION VITAL SIGNS: He is afebrile. Pulse , respirations 18, and blood pressure 116/70. LUNGS: Bilateral fair airflow. No rhonchi or crackles. HEART: S1 and S2, audible. Regular rate and rhythm. ABDOMEN: Soft, obese, and nontender. No rebound. No guarding. NEUROLOGIC: He is awake and alert, able to communicate. Moves all extremities; however, ulcerations. LABORATORY DATA: Blood sugar is 170. CT scan of the head is negative. ASSESSMENT 1. Generalized weakness versus vertigo, unstable gait, high risk for fall. 2. Hypertension. 3. History of Hepatocellular carcinoma, status post arterial embolization. 4. Chronic anemia. 5. Insulin-dependent diabetes. PLAN: The patient will continue to hydrate. We will continue him on meclizine and losartan, monitor his blood sugar. Bilateral legs wounds are being attended by surgical team. We will request for subacute rehab arrangement, once this is made, we will re-transfer the patient to subacute rehab. Since he has high risk for fall, he needs gait training and physical therapy. Pierre Holt MD
[2018-12-29 17:43] VITALS: RESP 20
[2018-12-30] MEDS: Pantoprazole 40 mg EC Tab PO SCH (05:35)
[2018-12-30] MEDS: Insulin Lispro 1 UNITS/0.01 ML SC SCH ×3 (09:23→17:11)
[2018-12-30] MEDS: Insulin Lispro (humaLOG) MEDIUM Coverage SC SCH ×4 (09:23→21:20)
[2018-12-30] MEDS: Insulin Detemir 100 units/ml Vial (Levemir) SC SCH ×2 (09:24→17:12)
--- NOTE | 2018-12-30 14:02 | PN ---
DATE: 12/30/2018 SUBJECTIVE: The patient is 73-year-old, seen and examined. He seems to be doing a little better. Appetite is better. He ate this morning. His dizziness has improved somewhat, but still has difficulty walking. He is very lightheaded and off balance. PHYSICAL EXAMINATION: VITAL SIGNS: He is afebrile, pulse 76, respirations 20, blood pressure 185/72. LUNGS: Bilateral fair airflow. No rhonchi or crackles. HEART: S1 and S2 audible. ABDOMEN: Soft, nontender. No rebound. No guarding. NEUROLOGIC: The patient is awake and alert, able to communicate. EXTREMITIES: Bilateral legs, he has chronic lymphedema. His both legs are wrapped in dressing. LABORATORY DATA: Blood sugar is 127. ASSESSMENT: 1. Extreme dizziness and vertigo, high risk to fall. 2. Unstable gait. 3. Morbid obesity. 4. Insulin-dependent diabetes. 5. History of hepatocellular carcinoma, status post arterial embolization. PLAN: I will discontinue IV fluid. Give him a dose of Lasix. Continue him on metoprolol 100 twice a day. I will order for clonidine 0.1 every 6 hours p.r.n. for more than 150. The patient is scheduled to be transferred to [place] tomorrow for subacute rehab and gait training. Pierre Holt MD
[2018-12-31] MEDS: Pantoprazole 40 mg EC Tab PO SCH (05:56)
[2018-12-31 08:10] LABS: BASO # 0.04 K/mm3 (0.0-2.0); BASO % 0.7 % (0.0-3.0); EOS # 0.5 (0.0-0.7); EOS % 9.9 % (1.5-5.0); HEMOGLOBIN 11.1 g/dL (14.0-18.0); LYMPH # 1.2 (1.2-3.4); LYMPH % 21.6 % (22.0-35.0); MEAN CELL VOLUME 97.9 fl (80.0-105.0); MEAN CORPUSCULAR HEMOGLOBIN 32.7 pg (25.0-35.0); MEAN CORPUSCULAR HGB CONC 33.4 g/dl (31.0-37.0); MEAN PLATELET VOLUME 10.8 fl (7.0-11.0); MONO # 0.7 (0.1-0.6); MONO % 12.8 % (1.0-6.0); RBC 3.39 10^6/uL (3.5-6.1); RED CELL DISTRIBUTION WIDTH 14.5 % (11.5-14.5); WHITE BLOOD COUNT 5.5 10^3/uL (4.5-11.0)
[2018-12-31 08:39] LABS: ALB/GLOB RATIO 0.8 (1.1-1.8); ALBUMIN 3.3 g/dL (3.0-4.8); CALCIUM 9.4 mg/dL (8.4-10.5)
[2018-12-31] MEDS: Insulin Lispro (humaLOG) MEDIUM Coverage SC SCH (08:59)
[2018-12-31] MEDS: Insulin Lispro 1 UNITS/0.01 ML SC SCH (08:59)
[2018-12-31 09:50] VITALS: BP 155/67; TEMP 98.4; O2SAT 98
[2018-12-31] MEDS: Insulin Detemir 100 units/ml Vial (Levemir) SC SCH (10:35)
--- NOTE | 2018-12-31 11:21 | PN ---
DATE: 12/31/2018 SUBJECTIVE: The patient has no complaints of any chest pain. No shortness of breath. No headaches. PHYSICAL EXAMINATION: VITAL SIGNS: Temperature is 98.5, pulse of 49, blood pressure 140/75 and respirations 20. GENERAL: The patient is lying in bed, flat, comfortable. HEENT: No oral lesion. Anicteric sclerae. Moist mucosa. NECK: No JVD, adenopathy, or thyromegaly. CARDIOVASCULAR: S1 and S2, regular. No murmurs, rubs, or gallops. LUNGS: Clear to auscultation bilaterally. No wheeze, rales, or rhonchi. ABDOMEN: Bowel sounds are positive, soft, nontender and nondistended. EXTREMITIES: No cyanosis, clubbing or edema. LABORATORY DATA: White count of 5.5 and hemoglobin 11.1. Creatinine is 1.4. ASSESSMENT: 1. Vertigo. 2. Fall. 3. Obesity with a body mass index of 35. 4. Diabetes type II. PLAN: The patient is currently comfortable. He says that his lower extremity edema has improved. He is able to sit in chair without getting significant dizziness. He is on meclizine for his vertigo. He is receiving clonidine for his hypertension. The patient is on Levemir for his diabetes. The patient is on Lipitor for dyslipidemia. The patient is on allopurinol for his hyperuricemia. He is on heart healthy diet. Jayden Russell MD
[2018-12-31 14:05] VITALS: PULSE 64
--- NOTE | 2018-12-31 16:42 | PN ---
DATE: 12/31/2018 This is [facility] visit on the medical floor. For Dr. Swenson, SUBJECTIVE: The patient is a 73-year-old male to be transferred today to [facility] for reconditioning with the patient now recently treated by his primary doctor, consulted for severe dizziness with nausea. It should be noted that the patient has a history of hepatocellular carcinoma with cirrhosis and severe peripheral vascular disease for which Dr. Swenson has been following him. His thrombocytopenia has since improved with the patient otherwise no acute distress this visit. PHYSICAL EXAMINATION VITAL SIGNS: Temperature 98.4, pulse 64, respirations 20, blood pressure 154/67 and pulse ox 98%. HEENT: Poor dentition. NECK: Supple. HEART: Regular rate. LUNGS: Clear. ABDOMEN: Obese, soft and nontender. EXTREMITIES: With dressings on for his chronic stasis dermatitis and peripheral vascular disease changes. The patient reports that his dizziness is significantly improved. NEUROLOGIC: Otherwise, awake and alert. SKIN: Warm and dry. LABORATORY DATA: The patient's labs were drawn. White blood cell count of 5.5, hemoglobin 11.1, hematocrit 33.2 and platelet count of 121,000. Metabolic panel showing a BUN of 33, AST of 67, and value of 2.7. ASSESSMENT: Unstable gait, dizziness, vertigo now improved, rule out inner ear vestibular disturbance, status post fall, diabetes mellitus, history of hepatocellular carcinoma with cirrhosis, chronic lymphedema with chronic stasis dermatitis lower extremities, hypertension, diabetes mellitus with thrombocytopenia improved. PLAN: After the conversation with Dr. Swenson is to continue present medical regimen as per his attending doctor and consultants with followup with Dr. Swenson in the office once his stay at [facility] is completed or earlier p.r.n. This is a complex patient with a comprehensive medically necessary and appropriate visit carried out in excess of 40 minutes with the patient's questions answered to his satisfaction. William Alcocer MD
--- NOTE | 2019-01-01 09:09 | PN ---
DATE: 12/30/2018 This is [facility] visit on the medical floor. For Dr. Swenson. SUBJECTIVE: The patient is a 73-year-old male admitted for severe dizziness/vertigo which is modestly improved since admission. He is for a transfer to [facility] for rehab tomorrow for continuing care as per Dr. Holt. At present, the patient denies any pain. It should be noted that he is followed by Dr. Swenson for hepatocellular carcinoma with cirrhosis status post embolization and for sequestration thrombocytopenia which is being monitored. At this time, he is in no acute distress. PHYSICAL EXAMINATION: VITAL SIGNS: Temperature 97.7, pulse 76, respirations 20, blood pressure 185/72, pulse ox 97%. HEENT: Unremarkable except for poor dentition. NECK: Supple. HEART: Regular rate. LUNGS: Decreased breath sounds today at the bases. ABDOMEN: Obese, soft, nontender with periumbilical hernia. EXTREMITIES: A +1 edema, chronic stasis dermatitis. NEUROLOGIC: Awake and alert. SKIN: Otherwise warm and dry. LABORATORY DATA: The patient's labs were done. White blood cell count of 5.0, improved from 2.5 on admission with a hemoglobin of 10.6, hematocrit of 31.6 with a plate count of 147,000; improved since admission which was 72,000. The patient's metabolic panel which was done 2 days prior showed a BUN of 51 and creatinine of 1.6, otherwise normal metabolic panel with a nonfasting glucose of 127 earlier today. The patient did have an alpha fetoprotein level most recently in January 2018, it was 2.6, this will be repeated with a CA value then of 3.4. IMAGING STUDIES: The patient did have a CT scan of the head done 2 days prior, it was read as no acute intracranial findings. ASSESSMENT: Vertigo/dizziness; hepatocellular carcinoma; cirrhosis; diabetes; hypertension; obesity; peripheral vascular disease; chronic stasis dermatitis; neutropenia, corrected; thrombocytopenia, deconditioning. PLAN: To continue present medical regimen as per Dr. Holt with transfer for rehab. The patient will followup in the office with Dr. Swenson at the discharge. This is a complex patient with a comprehensive medically necessary and appropriate visit carried out in excess of 25 minutes with the patient's questions answered to his satisfaction. William MD [facility] # [id number]
--- NOTE | 2019-01-01 22:39 | PQF ---
PROVIDER RESPONSE TEXT: Stage 3 ckd REVIEWER QUERY TEXT: Kidney Disease, Chronic CKD Stage Physician?s Documentation Request This Form is Not a Permanent Document in the Medical Record Pt Name: ANTONIO MERRITT MR #: [id number] Payor: MEDICARE PART A Unit/Bed: [id number] Adm Date: 12/28/2018 11:57:00 AM Reviewer: Stacy Mueller Ext. Query Date: 12/29/2018 8:17:00 AM Kidney Disease, Chronic CKD Stage [id number] By submitting this query, we are merely seeking further clarification of documentation to accurately reflect all conditions that you are monitoring, evaluating, treating or that extend the hospitalizati on or utilize additional resources of care. Please utilize your independent clinical judgment when ad dressing the question(s) below. Dear Doctor Pierre Holt, The patient?s Clinical Indicators include: Please specify stage and cause of CKD. Chronic Kidney Disease (CKD) is documented in the Medical Record. Please specify the disease stage ( includes probable or suspected) Such as: -- Chronic kidney disease Stage 1 -- Chronic kidney disease Stage 2 -- Chronic kidney disease Stage 3 -- Chronic kidney disease Stage 4 -- Chronic kidney disease Stage 5 -- Chronic kidney disease Stage 5, requiring dialysis -- End Stage Renal Disease -- Other, please specify Stages are defined by the [employer] as follows: CKD Stage I GFR >= 90 ml / min per 1.73 m2 and persistent albuminuria CKD Stage 2 GFR between 60 and 89 with persistent albuminuria CKD Stage 3 GFR between 30 and 59 CKD Stage 4 GFR between 15 and 29 CKD Stage 5 GFR between <15 or End Stage Renal Disease PLEASE DOCUMENT ANY ADDITIONAL DIAGNOSES AND/OR SPECIFICITY IN THE PROGRESS NOTES AND/OR DISCHARGE TALAMANTES MMARY. Clinically unable to determine/unknown Disagree with the above request Need to discuss Query created by: Stacy uMeller on 12/29/2018 8:17 AM Electronically signed by: Pierre Holt MD 01/01/2019 10:36 PM
== END 2018-12-31 14:07 | disposition home or self-care (01) | DRG 149 ==
LOC: ED 07:15 → ERH 11:57 → 3RSO 17:05
PROVIDERS: ADMIT Internal Medicine; ATTEND Internal Medicine
DX: R42 Dizziness and giddiness (principal); C22.0 Liver cell carcinoma; K76.6 Portal hypertension; I12.9 Hypertensive chronic kidney disease with stage 1 through stage 4 chronic kidney disease, or unspecified chronic kidney disease; E11.22 Type 2 diabetes mellitus with diabetic chronic kidney disease; N18.3 Chronic kidney disease, stage 3 (moderate); K74.60 Unspecified cirrhosis of liver; E11.51 Type 2 diabetes mellitus with diabetic peripheral angiopathy without gangrene; D64.9 Anemia, unspecified; I87.2 Venous insufficiency (chronic) (peripheral); N40.0 Benign prostatic hyperplasia without lower urinary tract symptoms; I25.10 Atherosclerotic heart disease of native coronary artery without angina pectoris; I89.0 Lymphedema, not elsewhere classified; D70.9 Neutropenia, unspecified; E78.5 Hyperlipidemia, unspecified; R63.4 Abnormal weight loss; E66.9 Obesity, unspecified; Z68.35 Body mass index [BMI] 35.0-35.9, adult; Z79.4 Long term (current) use of insulin; Z93.3 Colostomy status